=== PATIENT | female | born 1990 | race Caucasian/White ===

== ENCOUNTER 2017-03-03 18:42 | Emergency (ER) | payer OTHER ==
[~2017-03-03] VITALS: Ht 157.5 cm; Wt 72.6 kg
[~2017-03-03 18:42] MED LIST: BUPROPION HCL150 M2 PO; CEFTIN250 MG PO; CLINDAMYCIN HC300 MG PO; DAYPRO600 MG PO; FLUOXETINE HCL20 M1 PO; FLUOXETINE HCL20 MG PO; IBUPROFEN600 MG PO; IBUPROFEN800 MG PO; ISENTRESS400 MG PO; METHOCARBAMOL750 MG PO; PAROXETINE HCL20 MG PO; PRENACARE TABL1 EACH PO; TRUVADA 200 MG1 EACH PO; VICODIN 5-3001 EACH PO; ZOFRAN ODT4 MG PO
== END 2017-03-03 19:48 | disposition home or self-care (01) ==
LOC: ED 18:42
DX: S50.11XA Contusion of right forearm, initial encounter (principal); S60.221A Contusion of right hand, initial encounter; F41.9 Anxiety disorder, unspecified; F32.9 Major depressive disorder, single episode, unspecified; Z90.49 Acquired absence of other specified parts of digestive tract; Z88.0 Allergy status to penicillin; Z88.1 Allergy status to other antibiotic agents; Z88.5 Allergy status to narcotic agent; Z79.899 Other long term (current) drug therapy; W22.8XXA Striking against or struck by other objects, initial encounter
CPT/HCPCS: 73090; 73130; 99283

== ENCOUNTER 2017-05-24 18:56 | Emergency (ER) | payer OTHER ==
[~2017-05-24] VITALS: Ht 157.5 cm; Wt 90.7 kg
[2017-05-24] MEDS ORDERED: CRUTCH1 EACH (19:30)
== END 2017-05-24 19:45 | disposition home or self-care (01) ==
LOC: ED 18:56
DX: S93.402A Sprain of unspecified ligament of left ankle, initial encounter (principal); F17.200 Nicotine dependence, unspecified, uncomplicated; F41.9 Anxiety disorder, unspecified; F32.9 Major depressive disorder, single episode, unspecified; Z88.1 Allergy status to other antibiotic agents; Z79.899 Other long term (current) drug therapy; Z90.49 Acquired absence of other specified parts of digestive tract; Z98.890 Other specified postprocedural states; Z88.0 Allergy status to penicillin; Z88.5 Allergy status to narcotic agent; W10.1XXA Fall (on)(from) sidewalk curb, initial encounter
CPT/HCPCS: 73610; 99283

== ENCOUNTER 2017-07-09 18:03 | Emergency (ER) | payer OTHER ==
[~2017-07-09] VITALS: Ht 157.5 cm; Wt 90.7 kg
[~2017-07-09 18:03] MED LIST changes: +CRUTCH1 EACH
[2017-07-09] MEDS ORDERED: NAPROSYN500 MG PO (23:38)
[2017-07-09] MEDS ORDERED: PREDNISONE20 MG PO (23:38)
== END 2017-07-10 00:14 | disposition home or self-care (01) ==
LOC: ED 18:03
DX: J20.9 Acute bronchitis, unspecified (principal); J04.0 Acute laryngitis; F32.9 Major depressive disorder, single episode, unspecified; F41.9 Anxiety disorder, unspecified; F43.10 Post-traumatic stress disorder, unspecified; F17.200 Nicotine dependence, unspecified, uncomplicated; Z90.49 Acquired absence of other specified parts of digestive tract; Z88.0 Allergy status to penicillin; Z88.5 Allergy status to narcotic agent; Z79.899 Other long term (current) drug therapy
CPT/HCPCS: 36415; 71046; 85379; 87502; 94640; 99283; J7512

== ENCOUNTER 2017-07-27 16:37 | Emergency (ER) | payer OTHER ==
[~2017-07-27] VITALS: Ht 157.5 cm; Wt 90.7 kg
[~2017-07-27 16:37] MED LIST changes: +NAPROSYN500 MG PO; +PREDNISONE20 MG PO
== END 2017-07-27 17:05 | disposition home or self-care (01) ==
LOC: ED 16:37
DX: K13.79 Other lesions of oral mucosa (principal); Z98.818 Other dental procedure status

== ENCOUNTER 2017-10-08 05:36 | Emergency (ER) | payer OTHER ==
[~2017-10-08] VITALS: Ht 157.5 cm; Wt 90.7 kg
[2017-10-08] MEDS ORDERED: ZOFRAN ODT4 MG PO (09:04)
[2017-10-08] MEDS ORDERED: NORCO 5-325 TA1 EACH PO (09:04)
== END 2017-10-08 09:44 | disposition home or self-care (01) ==
LOC: ED 05:36
DX: R10.31 Right lower quadrant pain (principal); F32.9 Major depressive disorder, single episode, unspecified; F43.10 Post-traumatic stress disorder, unspecified; F41.9 Anxiety disorder, unspecified; F17.200 Nicotine dependence, unspecified, uncomplicated; Z88.0 Allergy status to penicillin; Z88.5 Allergy status to narcotic agent; Z79.899 Other long term (current) drug therapy
CPT/HCPCS: 74177; 80053; 81001; 83690; 84703; 85025; 96374; 96375; 96376; 99284; J1170; J2405; J7030; J7120; Q9967

== ENCOUNTER 2017-12-16 09:11 | Emergency (ER) | payer OTHER ==
[~2017-12-16] VITALS: Ht 157.5 cm; Wt 104.3 kg
[~2017-12-16 09:11] MED LIST changes: +NORCO 5-325 TA1 EACH PO
[2017-12-16] MEDS ORDERED: ZITHROMAX250 MG PO (10:07)
[2017-12-16] MEDS ORDERED: ONDANSETRON ODT8 MG PO (10:07)
== END 2017-12-16 09:51 | disposition home or self-care (01) ==
LOC: ED 09:11
DX: J02.9 Acute pharyngitis, unspecified (principal); R11.0 Nausea; F17.200 Nicotine dependence, unspecified, uncomplicated; Z88.0 Allergy status to penicillin; Z88.5 Allergy status to narcotic agent; Z79.899 Other long term (current) drug therapy
CPT/HCPCS: 99283

== ENCOUNTER 2018-08-01 20:56 | Emergency (ER) | payer OTHER ==
[~2018-08-01] VITALS: Ht 157.5 cm; Wt 81.7 kg
[~2018-08-01 20:56] MED LIST changes: +ONDANSETRON ODT8 MG PO; +ZITHROMAX250 MG PO
== END 2018-08-01 22:54 | disposition home or self-care (01) ==
LOC: ED 20:56
DX: T16.1XXA Foreign body in right ear, initial encounter (principal); F32.9 Major depressive disorder, single episode, unspecified; F41.9 Anxiety disorder, unspecified; F43.10 Post-traumatic stress disorder, unspecified; F17.200 Nicotine dependence, unspecified, uncomplicated; Z88.0 Allergy status to penicillin; Z88.5 Allergy status to narcotic agent; Z79.899 Other long term (current) drug therapy
CPT/HCPCS: 99282

== ENCOUNTER 2019-08-20 19:11 | Emergency (ER) | payer OTHER ==
[~2019-08-20] VITALS: Ht 157.5 cm; Wt 86.2 kg
[2019-08-20] MEDS ORDERED: PROMETHAZINE12.5 M1 PO (21:29)
== END 2019-08-20 21:43 | disposition home or self-care (01) ==
LOC: ED 19:11
DX: O21.9 Vomiting of pregnancy, unspecified (principal); Z3A.12 12 weeks gestation of pregnancy; O99.331 Smoking (tobacco) complicating pregnancy, first trimester; F17.200 Nicotine dependence, unspecified, uncomplicated; Z88.0 Allergy status to penicillin; Z88.5 Allergy status to narcotic agent
CPT/HCPCS: 80053; 81001; 83690; 84702; 85025; 96361; 96374; 96376; 99284-25; J2405; J7030

== ENCOUNTER 2019-10-13 10:59 | Emergency (ER) | payer OTHER ==
[~2019-10-13] VITALS: Ht 157.5 cm; Wt 86.2 kg
[~2019-10-13 10:59] MED LIST changes: +PROMETHAZINE12.5 M1 PO
[2019-10-13] MEDS ORDERED: SERTRALINE HCL50 MG PO (11:14)
[2019-10-13] MEDS ORDERED: METOCLOPRAMIDE H5 MG PO (11:14)
[2019-10-13] MEDS ORDERED: ONDANSETRON ODT8 MG PO (13:30)
== END 2019-10-13 14:08 | disposition home or self-care (01) ==
LOC: ED 10:59
DX: O99.611 Diseases of the digestive system complicating pregnancy, first trimester (principal); K52.9 Noninfective gastroenteritis and colitis, unspecified; O99.341 Other mental disorders complicating pregnancy, first trimester; F32.9 Major depressive disorder, single episode, unspecified; F41.9 Anxiety disorder, unspecified; O99.331 Smoking (tobacco) complicating pregnancy, first trimester; F17.200 Nicotine dependence, unspecified, uncomplicated; Z90.49 Acquired absence of other specified parts of digestive tract; Z88.0 Allergy status to penicillin; Z88.5 Allergy status to narcotic agent; Z91.09 Other allergy status, other than to drugs and biological substances; Z3A.11 11 weeks gestation of pregnancy
CPT/HCPCS: 80053; 81001; 85025; 96361; 96374; 99284-25; 99406; J2550; J7030

== ENCOUNTER 2020-04-24 07:50 | Inpatient (IN) | payer OTHER ==
[~2020-04-24] VITALS: Ht 160 cm; Wt 100.7 kg
--- OUTSIDE RECORDS SUMMARY | ~2020-04-24 | XMS | Encounter Summary ---
Demographics + + + | Address | [address] | | | [place] [address] | + + + | Home Phone | | + + + | Preferred Language | Unknown | + + + | Marital Status | Single | + + + | Advent Affiliation | Unknown | + + + | Race | White | + + + | Ethnic Group | Not or | + + + Author + + + | Author | [facility] | | | and [place] | + + + | Organization | [facility] | | | and [place] | + + + | Address | Unknown | + + + | Phone | Unavailable | + + + Support + + +---------+ + | Name | Relationship | Address | Phone | + + +---------+ + | Nahomi Willams | ECON | Unknown | | + + +---------+ + | Nahomi Willams | ECON | Unknown | | + + +---------+ + Care Team Providers + +------+ + | Care Health Physics Technician Name | Role | Phone | + +------+ + | Karson Williamson MD | PCP | | + +------+ + Encounter Details +--------+ + + + + | Date | Type | Department | Care Team | Description | +--------+ + + + + | 01/06/ | Episode | [facility] | Alexandra Abraham | | | 2017 | Changes | GASTROENTEROLOGY | TAMIKA Delacruz | | | | | [address] [facility] | | | | | | [address] [place] | | | | | | [address] | | | | | | [phone] | | | +--------+ + + + + Social History + +-------+ +--------+------+ | Tobacco Use | Types | Packs/Day | Years | Date | | | | | Used | | + +-------+ +--------+------+ | Current Every Day | | 0.25 | | | | Smoker | | | | | + +-------+ +--------+------+ + + + + + | Alcohol Use | Drinks/Week | oz/Week | Comments | + + + + + | Yes | 7-14 Cans of beer | 7.0 - 14.0 | parties on the | | | | | weekends and dinks | | | | | quite a bit | + + + + + + + + | Sex Assigned at | Date Recorded | | | | + + + | Not on file | | + + + documented as of this encounter Plan of Treatment Not on filedocumented as of this encounter Visit Diagnoses Not on filedocumented in this encounter"
--- OUTSIDE RECORDS SUMMARY | ~2020-04-24 | XMS | Encounter Summary ---
Demographics + + + | Address | [address] | | | [place] [address] | + + + | Home Phone | | + + + | Preferred Language | Unknown | + + + | Marital Status | Single | + + + | Denominational Affiliation | Unknown | + + + | Race | White | + + + | Ethnic Group | Not or | + + + Author + + + | Author | [facility] | | | and [place] | + + + | Organization | [facility] | | | and [...] Providers + +------+ + | Care Health Safety And Environment Manager Name | Role | Phone | + [...] | | | | [address] [facility] | | | | | | [address] [place] | | | | | | [address] | | | | | | [phone] | | | +--------+ + + + [...]
--- OUTSIDE RECORDS SUMMARY | ~2020-04-24 | XMS | Encounter Summary ---
Demographics + + + | Address | [address] | | | [place] [address] | + + + | Home Phone | | + + + | Preferred Language | Unknown | + + + | Marital Status | Single | + + + | Zoroastrianism Affiliation | Unknown | + + + | Race | White | + + + | Ethnic Group | Not or | + + + Author + + + | Author | [facility] | | | and [place] | + + + | Organization | [facility] | | | and [...] Team Providers + +------+ + | Care Triage Registered Nurse Name | Role | Phone | + +------+ + | Karson Williamson MD | PCP | | + +------+ + Reason for Visit + +--------+ + | Reason | Onset | Comments | | | Date | | + +--------+ + | Referral | 01/14/ | gastric emptying study | | (PreAuthorization) | 2016 | | + +--------+ + Encounter Details +--------+ + + + + | Date | Type | Department | Care Team | Description | +--------+ + + + + | 01/14/ | Telephone | [facility] | [facility], | Referral | | 2017 | | GASTROENTEROLOGY | ARIELLE Damon [address] | (PreAuthorization) | | | | [address] | [address] | (gastric emptying | | | | [address] [place], [place] | [place], [place] | study) | | | | [address] | [address] | | | | | [phone] | | | +--------+ + + + [...] + + documented as of this encounter Miscellaneous Notes Telephone Encounter - Maureen Carter CMA - 01/14/2017 2:02 PM PDTLeft message notifyi ng patient that gastric emptying study has been approved. This order has been faxed to [facility] with demographics and referral authorization. documented in this encounter Plan of Treatment Not on filedocumented as of this encounter Visit Diagnoses Not on filedocumented in this encounter"
--- OUTSIDE RECORDS SUMMARY | ~2020-04-24 | XMS | Encounter Summary ---
Demographics + + + | Address | [address] | | | [place] [address] | + + + | Home Phone | | + + + | Preferred Language | Unknown | + + + | Marital Status | Single | + + + | Sikhism Affiliation | Unknown | + + + | Race | White | + + + | Ethnic Group | Not or | + + + Author + + + | Author | [facility] | | | and [place] | + + + | Organization | [facility] | | | [...] Team Providers + +------+ + | Care Digital Solution Architect Name | Role | Phone | + +------+ + PCP | Unavailable | + +------+ + Encounter Details +--------+ + + + + | Date | Type | Department | Care Team | Description | +--------+ + + + + | 03/05/ | Hospital | [facility] | | | | 1993 | Encounter | [facility] | | | | | | CENTER [address] | | | | | | [place] | | | | | | [address] | | | | | | [phone] | | | +--------+ + + + + Social History + +-------+ +--------+------+ | Tobacco Use | Types | Packs/Day | Years | Date | | | | | Used | | + +-------+ +--------+------+ | Never Assessed | | | | | + +-------+ +--------+------+ + + + | Sex Assigned at | Date Recorded | | | | + + + | Not on file | | + + + documented as of this encounter Plan of Treatment Not on filedocumented as of this encounter Visit Diagnoses Not on filedocumented in this encounter"
--- OUTSIDE RECORDS SUMMARY | ~2020-04-24 | XMS | Encounter Summary ---
Demographics + + + | Address | [address] | | | [place] [address] | + + + | Home Phone | | + + + | Preferred Language | Unknown | + + + | Marital Status | Single | + + + | Zoroastrian Affiliation | Unknown | + + + | Race | White | + + + | Ethnic Group | Not or | + + + Author + + + | Author | [facility] | | | and [place] | + + + | Organization | [facility] | | | [...] Team Providers + +------+ + | Care Crib Attendant Name | Role | Phone | + +------+ + | Karson Williamson MD | PCP | | + +------+ + Encounter Details +--------+ + + + + | Date | Type | Department | Care Team | Description | +--------+ + + + + | 02/10/ | Episode | [facility] | Hermel[facility], | | | 2016 | Changes | GASTROENTEROLOGY | RN | | | | | [address] [place] | | | | | | [address] [place], [place] | | | | | | [address] | | | | | | [phone] | | | +--------+ + + + + Social History + + + +--------+------+ | Tobacco Use | Types | Packs/Day | Years | Date | | | | | Used | | + + + +--------+------+ | Current Every Day | Cigarettes | 0.25 | 7 | | | Smoker | | | | | + + + +--------+------+ + +---+---+---+ | Smokeless Tobacco: | | | | | Never Used | | | | + +---+---+---+ + + + + + | Alcohol [...]
--- OUTSIDE RECORDS SUMMARY | ~2020-04-24 | XMS | Encounter Summary ---
Demographics + + + | Address | [address] | | | [place] [address] | + + + | Home Phone | | + + + | Preferred Language | Unknown | + + + | Marital Status | Single | + + + | Gnosticist Affiliation | Unknown | + + + | Race | White | + + + | Ethnic Group | Not or | + + + Author + + + | Author | [facility] | | | and [place] | + + + | Organization | [facility] | | | and [...] Team Providers + +------+ + | Care Jewel Waxer Name | Role | Phone | + +------+ + | Karson Williamson MD | PCP | | + +------+ + Encounter Details +--------+ + + + + | Date | Type | Department | Care Team | Description | +--------+ + + + + | 02/18/ | Episode | [facility] | [facility], | | | 2016 | Changes | GASTROENTEROLOGY | RN | | | | | [address] [place] | | | | | | [address] [place], [place] | | | | | | [address] | | | | | | [phone] | | | +--------+ + + + [...]
--- OUTSIDE RECORDS SUMMARY | ~2020-04-24 | XMS | Encounter Summary ---
Demographics + + + | Address | [address] | | | [place] [address] | + + + | Home Phone | | + + + | Preferred Language | Unknown | + + + | Marital Status | Single | + + + | Mandaen Affiliation | Unknown | + + + | Race | White | + + + | Ethnic Group | Not or | + + + Author + + + | Author | [facility] | | | and [place] | + + + | Organization | [facility] | | | and [...] Team Providers + +------+ + | Care Squirrel Man Name | Role | Phone | + +------+ + | Karson Williamson MD | PCP | | + +------+ + Encounter Details +--------+ + + + + | Date | Type | Department | Care Team | Description | +--------+ + + + + | 12/16/ | Abstract | [facility] [place] | [facility], | | | 2017 | | GASTROENTEROLOGY | ARIELLE Damon [address] | | | | | [address] | [address] | | | | | [address] [place], [place] | [place], [place] | | | | | [address] | [address] | | | | | [phone] | | | +--------+ + + + [...] Not on filedocumented as of this encounter Procedures + +--------+ + + + | Procedure Name | Priori | Date/Time | Associated Diagnosis | Comments | | | ty | | | | + +--------+ + + + | EXTERNAL: | Routin | 09/11/2016 | | Results for this | | COLONOSCOPY | e | | | procedure are in the | | | | | | results section. | + +--------+ + + + | HC URINE | Routin | 09/11/2016 | | Results for this | | TEST | e | | | procedure are in the | | | | | | results section. | + +--------+ + + + | HELICOBACTER PYLORI | Routin | 09/11/2016 | | Results for this | | BIOPSY | e | | | procedure are in the | | | | | | results section. | + +--------+ + + + | SPECIMEN TO | Routin | 09/11/2016 | | Results for this | | PATHOLOGY | e | | | procedure are in the | | | | | | results section. | + +--------+ + + + | EXTERNAL LAB: PTT | Routin | 08/09/2016 | | Results for this | | | e | | | procedure are in the | | | | | | results section. | + +--------+ + + + | EXTERNAL LAB: BUN | Routin | 08/09/2016 | | Results for this | | | e | | | procedure are in the | | | | | | results section. | + +--------+ + + + | EXTERNAL LAB: | Routin | 08/09/2016 | | Results for this | | GLUCOSE | e | | | procedure are in the | | | | | | results section. | + +--------+ + + + | EXTERNAL LAB: ALT | Routin | 08/09/2016 | | Results for this | | | e | | | procedure are in the | | | | | | results section. | + +--------+ + + + | EXTERNAL LAB: AST | Routin | 08/09/2016 | | Results for this | | | e | | | procedure are in the | | | | | | results section. | + +--------+ + + + | EXTERNAL LAB: | Routin | 08/09/2016 | | Results for this | | ALKALINE PHOSPHATASE | e | | | procedure are in the | | | | | | results section. | + +--------+ + + + | EXTERNAL LAB: | Routin | 08/09/2016 | | Results for this | | BILIRUBIN, TOTAL | e | | | procedure are in the | | | | | | results section. | + +--------+ + + + | EXTERNAL LAB: | Routin | 08/09/2016 | | Results for this | | ALBUMIN | e | | | procedure are in the | | | | | | results section. | + +--------+ + + + | EXTERNAL LAB: | Routin | 08/09/2016 | | Results for this | | PROTEIN, TOTAL | e | | | procedure are in the | | | | | | results section. | + +--------+ + + + | EXTERNAL LAB: | Routin | 08/09/2016 | | Results for this | | CALCIUM | e | | | procedure are in the | | | | | | results section. | + +--------+ + + + | EXTERNAL LAB: CARBON | Routin | 08/09/2016 | | Results for this | | DIOXIDE | e | | | procedure are in the | | | | | | results section. | + +--------+ + + + | EXTERNAL LAB: | Routin | 08/09/2016 | | Results for this | | CHLORIDE | e | | | procedure are in the | | | | | | results section. | + +--------+ + + + | EXTERNAL LAB: | Routin | 08/09/2016 | | Results for this | | POTASSIUM | e | | | procedure are in the | | | | | | results section. | + +--------+ + + + | EXTERNAL LAB: SODIUM | Routin | 08/09/2016 | | Results for this | | | e | | | procedure are in the | | | | | | results section. | + +--------+ + + + | EXTERNAL LAB: | Routin | 08/09/2016 | | Results for this | | URINALYSIS | e | | | procedure are in the | | | | | | results section. | + +--------+ + + + | EXTERNAL LAB: CBC | Routin | 08/09/2016 | | Results for this | | | e | | | procedure are in the | | | | | | results section. | + +--------+ + + + | EXTERNAL LAB: | Routin | 08/09/2016 | | Results for this | | PROTIME INR | e | | | procedure are in the | | | | | | results section. | + +--------+ + + + | EXTERNAL LAB: EGFR | Routin | 08/09/2016 | | Results for this | | | e | | | procedure are in the | | | | | | results section. | + +--------+ + + + | EXTERNAL LAB: | Routin | 08/09/2016 | | Results for this | | CREATININE | e | | | procedure are in the | | | | | | results section. | + +--------+ + + + | HC URINE | Routin | 08/09/2016 | | Results for this | | TEST | e | | | procedure are in the | | | | | | results section. | + +--------+ + + + | URINALYSIS, REFLEX | Routin | 08/09/2016 | | Results for this | | MICROSCOPIC AND/OR | e | | | procedure are in the | | CULTURE | | | | results section. | + +--------+ + + + | CBC WITH | Routin | 08/09/2016 | | Results for this | | DIFFERENTIAL | e | | | procedure are in the | | | | | | results section. | + +--------+ + + + | COMPREHENSIVE | Routin | 08/09/2016 | | Results for this | | METABOLIC PANEL | e | | | procedure are in the | | | | | | results section. | + +--------+ + + + | EXTERNAL LAB: | Routin | 08/02/2016 | | Results for this | | URINALYSIS | e | | | procedure are in the | | | | | | results section. | + +--------+ + + + | EXTERNAL LAB: CBC | Routin | 08/02/2016 | | Results for this | | | e | | | procedure are in the | | | | | | results section. | + +--------+ + + + | URINALYSIS, REFLEX | Routin | 08/02/2016 | | Results for this | | MICROSCOPIC AND/OR | e | | | procedure are in the | | CULTURE | | | | results section. | + +--------+ + + + | CBC WITH | Routin | 08/02/2016 | | Results for this | | DIFFERENTIAL | e | | | procedure are in the | | | | | | results section. | + +--------+ + + + | HC CULTURE-URINE | Routin | 05/20/2016 | | Results for this | | | e | | | procedure are in the | | | | | | results section. | + +--------+ + + + | HIV 1 AND HIV 2 AG | Routin | 05/14/2016 | | Results for this | | AND AB CONFIRMATION, | e | | | procedure are in the | | SERUM | | | | results section. | + +--------+ + + + | EXTERNAL LAB: GLA | Routin | 05/14/2016 | | Results for this | | | e | | | procedure are in the | | | | | | results section. | + +--------+ + + + | EXTERNAL LAB: | Routin | 05/14/2016 | | Results for this | | GLUCOSE | e | | | procedure are in the | | | | | | results section. | + +--------+ + + + | EXTERNAL LAB: ALT | Routin | 05/14/2016 | | Results for this | | | e | | | procedure are in the | | | | | | results section. | + +--------+ + + + | EXTERNAL LAB: | Routin | 05/14/2016 | | Results for this | | ALBUMIN | e | | | procedure are in the | | | | | | results section. | + +--------+ + + + | EXTERNAL LAB: | Routin | 05/14/2016 | | Results for this | | PHOSPHORUS | e | | | procedure are in the | | | | | | results section. | + +--------+ + + + | EXTERNAL LAB: | Routin | 05/14/2016 | | Results for this | | CALCIUM | e | | | procedure are in the | | | | | | results section. | + +--------+ + + + | EXTERNAL LAB: CARBON | Routin | 05/14/2016 | | Results for this | | DIOXIDE | e | | | procedure are in the | | | | | | results section. | + +--------+ + + + | EXTERNAL LAB: | Routin | 05/14/2016 | | Results for this | | CHLORIDE | e | | | procedure are in the | | | | | | results section. | + +--------+ + + + | EXTERNAL LAB: | Routin | 05/14/2016 | | Results for this | | POTASSIUM | e | | | procedure are in the | | | | | | results section. | + +--------+ + + + | EXTERNAL LAB: SODIUM | Routin | 05/14/2016 | | Results for this | | | e | | | procedure are in the | | | | | | results section. | + +--------+ + + + | EXTERNAL LAB: | Routin | 05/14/2016 | | Results for this | | HEPATITIS C AB | e | | | procedure are in the | | | | | | results section. | + +--------+ + + + | EXTERNAL LAB: MORRIS | Routin | 05/14/2016 | | Results for this | | | e | | | procedure are in the | | | | | | results section. | + +--------+ + + + | EXTERNAL LAB: MORRIS | Routin | 05/14/2016 | | Results for this | | | e | | | procedure are in the | | | | | | results section. | + +--------+ + + + | EXTERNAL LAB: EGFR | Routin | 05/14/2016 | | Results for this | | | e | | | procedure are in the | | | | | | results section. | + +--------+ + + + | EXTERNAL LAB: | Routin | 05/14/2016 | | Results for this | | CREATININE | e | | | procedure are in the | | | | | | results section. | + +--------+ + + + | HC URINE | Routin | 05/14/2016 | | Results for this | | TEST | e | | | procedure are in the | | | | | | results section. | + +--------+ + + + | HEPATITIS A, B, C | Routin | 05/14/2016 | | Results for this | | PANEL, REFLEX | e | | | procedure are in the | | | | | | results section. | + +--------+ + + + | CBC WITH | Routin | 05/14/2016 | | Results for this | | DIFFERENTIAL | e | | | procedure are in the | | | | | | results section. | + +--------+ + + + | RENAL FUNCTION PANEL | Routin | 05/14/2016 | | Results for this | | | e | | | procedure are in the | | | | | | results section. | + +--------+ + + + | EXTERNAL LAB: BUN | Routin | 03/01/2016 | | Results for this | | | e | | | procedure are in the | | | | | | results section. | + +--------+ + + + | EXTERNAL LAB: | Routin | 03/01/2016 | | Results for this | | GLUCOSE | e | | | procedure are in the | | | | | | results section. | + +--------+ + + + | EXTERNAL LAB: LIPASE | Routin | 03/01/2016 | | Results for this | | | e | | | procedure are in the | | | | | | results section. | + +--------+ + + + | EXTERNAL LAB: | Routin | 03/01/2016 | | Results for this | | AMYLASE, SERUM | e | | | procedure are in the | | | | | | results section. | + +--------+ + + + | EXTERNAL LAB: ALT | Routin | 03/01/2016 | | Results for this | | | e | | | procedure are in the | | | | | | results section. | + +--------+ + + + | EXTERNAL LAB: AST | Routin | 03/01/2016 | | Results for this | | | e | | | procedure are in the | | | | | | results section. | + +--------+ + + + | EXTERNAL LAB: | Routin | 03/01/2016 | | Results for this | | ALKALINE PHOSPHATASE | e | | | procedure are in the | | | | | | results section. | + +--------+ + + + | EXTERNAL LAB: | Routin | 03/01/2016 | | Results for this | | BILIRUBIN, TOTAL | e | | | procedure are in the | | | | | | results section. | + +--------+ + + + | EXTERNAL LAB: | Routin | 03/01/2016 | | Results for this | | ALBUMIN | e | | | procedure are in the | | | | | | results section. | + +--------+ + + + | EXTERNAL LAB: | Routin | 03/01/2016 | | Results for this | | PROTEIN, TOTAL | e | | | procedure are in the | | | | | | results section. | + +--------+ + + + | EXTERNAL LAB: | Routin | 03/01/2016 | | Results for this | | CALCIUM | e | | | procedure are in the | | | | | | results section. | + +--------+ + + + | EXTERNAL LAB: CARBON | Routin | 03/01/2016 | | Results for this | | DIOXIDE | e | | | procedure are in the | | | | | | results section. | + +--------+ + + + | EXTERNAL LAB: | Routin | 03/01/2016 | | Results for this | | CHLORIDE | e | | | procedure are in the | | | | | | results section. | + +--------+ + + + | EXTERNAL LAB: | Routin | 03/01/2016 | | Results for this | | POTASSIUM | e | | | procedure are in the | | | | | | results section. | + +--------+ + + + | EXTERNAL LAB: SODIUM | Routin | 03/01/2016 | | Results for this | | | e | | | procedure are in the | | | | | | results section. | + +--------+ + + + | EXTERNAL LAB: CBC | Routin | 03/01/2016 | | Results for this | | | e | | | procedure are in the | | | | | | results section. | + +--------+ + + + | HCG, SERUM, QUAL | Routin | 03/01/2016 | | Results for this | | (NON-ORD) | e | | | procedure are in the | | | | | | results section. | + +--------+ + + + | EXTERNAL LAB: EGFR | Routin | 03/01/2016 | | Results for this | | | e | | | procedure are in the | | | | | | results section. | + +--------+ + + + | EXTERNAL LAB: | Routin | 03/01/2016 | | Results for this | | CREATININE | e | | | procedure are in the | | | | | | results section. | + +--------+ + + + | CBC WITH | Routin | 03/01/2016 | | Results for this | | DIFFERENTIAL | e | | | procedure are in the | | | | | | results section. | + +--------+ + + + | COMPREHENSIVE | Routin | 03/01/2016 | | Results for this | | METABOLIC PANEL | e | | | procedure are in the | | | | | | results section. | + +--------+ + + + | EXTERNAL LAB: BUN | Routin | 02/19/2016 | | Results for this | | | e | | | procedure are in the | | | | | | results section. | + +--------+ + + + | EXTERNAL LAB: | Routin | 02/19/2016 | | Results for this | | GLUCOSE | e | | | procedure are in the | | | | | | results section. | + +--------+ + + + | EXTERNAL LAB: | Routin | 02/19/2016 | | Results for this | | CALCIUM | e | | | procedure are in the | | | | | | results section. | + +--------+ + + + | EXTERNAL LAB: CARBON | Routin | 02/19/2016 | | Results for this | | DIOXIDE | e | | | procedure are in the | | | | | | results section. | + +--------+ + + + | EXTERNAL LAB: | Routin | 02/19/2016 | | Results for this | | CHLORIDE | e | | | procedure are in the | | | | | | results section. | + +--------+ + + + | EXTERNAL LAB: | Routin | 02/19/2016 | | Results for this | | POTASSIUM | e | | | procedure are in the | | | | | | results section. | + +--------+ + + + | EXTERNAL LAB: SODIUM | Routin | 02/19/2016 | | Results for this | | | e | | | procedure are in the | | | | | | results section. | + +--------+ + + + | EXTERNAL LAB: TSH | Routin | 02/19/2016 | | Results for this | | | e | | | procedure are in the | | | | | | results section. | + +--------+ + + + | EXTERNAL LAB: | Routin | 02/19/2016 | | Results for this | | TRIGLYCERIDES | e | | | procedure are in the | | | | | | results section. | + +--------+ + + + | EXTERNAL LAB: | Routin | 02/19/2016 | | Results for this | | CHOLESTEROL, HDL | e | | | procedure are in the | | | | | | results section. | + +--------+ + + + | EXTERNAL LAB: | Routin | 02/19/2016 | | Results for this | | CHOLESTEROL, TOTAL | e | | | procedure are in the | | | | | | results section. | + +--------+ + + + | EXTERNAL LAB: | Routin | 02/19/2016 | | Results for this | | CHOLESTEROL, LDL | e | | | procedure are in the | | | | | | results section. | + +--------+ + + + | EXTERNAL LAB: EGFR | Routin | 02/19/2016 | | Results for this | | | e | | | procedure are in the | | | | | | results section. | + +--------+ + + + | EXTERNAL LAB: | Routin | 02/19/2016 | | Results for this | | CREATININE | e | | | procedure are in the | | | | | | results section. | + +--------+ + + + | LIPID PANEL | Routin | 02/19/2016 | | Results for this | | | e | | | procedure are in the | | | | | | results section. | + +--------+ + + + | BASIC METABOLIC | Routin | 02/19/2016 | | Results for this | | PANEL | e | | | procedure are in the | | | | | | results section. | + +--------+ + + + | CHLAMYDIA | Routin | 02/15/2016 | | Results for this | | TRACHOMATIS AND | e | | | procedure are in the | | NEISSERIA | | | | results section. | | GONORRHOEAE DIAZ | | | | | | (NON-ORD) | | | | | + +--------+ + + + | VAGINAL PATHOGENS | Routin | 02/15/2016 | | Results for this | | DNA | e | | | procedure are in the | | | | | | results section. | + +--------+ + + + documented in this encounter Results URINE TEST (09/11/2016) + + + + + + | Component | Value | Ref Range | Performed | Pathologist | | | | | At | Signature | + + + + + + | HCG | Negative | | | | | Qualitative | | | | | | , Urine | | | | | + + + + + + + + | Specimen | + + | | + + EXTERNAL: COLONOSCOPY (09/11/2016) + + + + + + | Component | Value | Ref Range | Performed | Pathologist | | | | | At | Signature | + + + + + + | Colonoscopy | diagnoses: Gastritis. | | | | | | unspecified left-sided | | | | | Impression, | colitis. ~ [facility] Dr[facility] Briones | | | | | External | | | | | + + + + + + Helicobactor pylori Biopsy (09/11/2016) + + + + + + | Component | Value | Ref Range | Performed | Pathologist | | | | | At | Signature | + + + + + + | Clotest | Negative | Negative | | | | (Urease), | | | | | | Qualitative | | | | | + + + + + + + + | Specimen | + + | Tissue - Entire | | pyloric antrum (body | | structure) | + + Specimen to Pathology (09/11/2016) + + + + + + | Component | Value | Ref Range | Performed | Pathologist | | | | | At | Signature | + + + + + + | DIAGNOSIS: | A.) MUCOSA, DUODENUM, | | | | | | BIOPSY: No pathologica | | | | | | diagnosis | | | | + + + + + + | DIAGNOSIS: | B.) MUCOSA, ANTRUM, | | | | | | BIOPSY: Mild chronic | | | | | | inactive gastritis | | | | + + + + + + | DIAGNOSIS: | C.) MUCOSA, ILEUM, | | | | | | BIOPSY: No pathologic | | | | | | diagnosis | | | | + + + + + + | DIAGNOSIS: | D.) MUCOSA, RIGHT COLON, | | | | | | BIOPSY: mild focal | | | | | | intramucosal hemorrhage. | | | | | | minimal non-specific | | | | | | chronic inflammation and | | | | | | mucosal edema. | | | | + + + + + + | DIAGNOSIS: | E.) MUCOSA, TRANSVERSE | | | | | | COLON, BIOPSY: minimal | | | | | | non-specific chronic | | | | | | inflammation. | | | | + + + + + + | DIAGNOSIS: | F.) MUCOSA, 80 CM | | | | | | REGION, BIOPSY: mucosal | | | | | | edema. mild focal | | | | | | mucosal hemmorrhage. | | | | | | minimal to mild | | | | | | non-specific chronic | | | | | | inflammation. | | | | + + + + + + | DIAGNOSIS: | G.) MUCOSA, 45 CM | | | | | | REGION, BIOPSY: mucosal | | | | | | edema. mild focal | | | | | | mucosal hemorrhage. | | | | | | minimal to mild | | | | | | non-specific chronic | | | | | | inflammation. | | | | + + + + + + | DIAGNOSIS: | H.) MUCOSA, 20 CM | | | | | | REGION, BIOPSY: mucosal | | | | | | edema. mild focal | | | | | | mucosal hemmorrhage. | | | | | | minimal to mild | | | | | | non-specific chronic | | | | | | inflammation. | | | | + + + + + + | DIAGNOSIS: | I.) MUCOSA, RECTUM, | | | | | | BIOPSY: mucosa edema. | | | | | | mild focal mucosal | | | | | | hemorrhage. minimal to | | | | | | mild non-specific | | | | | | chronic inflammation. | | | | + + + + + + + + | Specimen | + + | Tissue | + + HC URINE TEST (08/09/2016) + + + + + + | Component | Value | Ref Range | Performed | Pathologist | | | | | At | Signature | + + + + + + | HCG | Negative | | | | | Qualitative | | | | | | , Urine | | | | | + + + + + + + + | Specimen | + + | | + + Comprehensive Metabolic Panel (08/09/2016) + +-------+ + + + | Component | Value | Ref Range | Performed | Pathologist | | | | | At | Signature | + +-------+ + + + | Anion Gap | 15 | 7 - 21 mmol/L | | | + +-------+ + + + | BUN/Creatin | 25.4 | 6 - 28.6 | | | | ine Ratio | | | | | + +-------+ + + + | Globulin | 3 | 1.8 - 3.5 | | | + +-------+ + + + | Albumin/Tiffanie | 1.4 | 1.1 - 2.4 | | | | bulin Ratio | | | | | + +-------+ + + + + + | Specimen | + + | Blood | + + CBC with Differential (08/09/2016) + +-------+ + + + | Component | Value | Ref Range | Performed | Pathologist | | | | | At | Signature | + +-------+ + + + | MCH | 26.0 | 26.0 - 33.0 pg | | | + +-------+ + + + | MCHC | 33.0 | 30.0 - 36.0 % | | | + +-------+ + + + | Basophils % | 0.2 | 0 - 2 | | | + +-------+ + + + + + | Specimen | + + | Blood | + + External Lab: PTT (08/09/2016) + +-------+ + + + | Component | Value | Ref Range | Performed | Pathologist | | | | | At | Signature | + +-------+ + + + | PTT, | 29.1 | 22.9 - 41.3 | EXTERNAL | | | External | | | LAB | | + +-------+ + + + + +---------+ + + | Performing | Address | City/State/Zipcode | Phone Number | | Organization | | | | + +---------+ + + | EXTERNAL LAB | | | | + +---------+ + + External Lab: BUN (08/09/2016) + +-------+ + + + | Component | Value | Ref Range | Performed | Pathologist | | | | | At | Signature | + +-------+ + + + | BUN, | 16 | 6 - 23 | EXTERNAL | | | External | | | LAB | | + +-------+ + + + + +---------+ + + | Performing | Address | City/State/Zipcode | Phone Number | | Organization | | | | + +---------+ + + | EXTERNAL LAB | | | | + +---------+ + + External Lab: Glucose (08/09/2016) + +-------+ + + + | Component | Value | Ref Range | Performed | Pathologist | | | | | At | Signature | + +-------+ + + + | Glucose, | 89 | 70 - 100 | EXTERNAL | | | External | | | LAB | | + +-------+ + + + + +---------+ + + | Performing | Address | City/State/Zipcode | Phone Number | | Organization | | | | + +---------+ + + | EXTERNAL LAB | | | | + +---------+ + + External Lab: ALT (08/09/2016) + +-------+ + + + | Component | Value | Ref Range | Performed | Pathologist | | | | | At | Signature | + +-------+ + + + | ALT, | 36 | 7 - 52 | EXTERNAL | | | External | | | LAB | | + +-------+ + + + + +---------+ + + | Performing | Address | City/State/Zipcode | Phone Number | | Organization | | | | + +---------+ + + | EXTERNAL LAB | | | | + +---------+ + + External Lab: AST (08/09/2016) + +-------+ + + + | Component | Value | Ref Range | Performed | Pathologist | | | | | At | Signature | + +-------+ + + + | AST, | 24 | 13 - 39 | EXTERNAL | | | External | | | LAB | | + +-------+ + + + + +---------+ + + | Performing | Address | City/State/Zipcode | Phone Number | | Organization | | | | + +---------+ + + | EXTERNAL LAB | | | | + +---------+ + + External Lab: Alkaline Phosphatase (08/09/2016) + +-------+ + + + | Component | Value | Ref Range | Performed | Pathologist | | | | | At | Signature | + +-------+ + + + | ALP, | 39 | 31 - 130 | EXTERNAL | | | External | | | LAB | | + +-------+ + + + + +---------+ + + | Performing | Address | City/State/Zipcode | Phone Number | | Organization | | | | + +---------+ + + | EXTERNAL LAB | | | | + +---------+ + + External Lab: Bilirubin, Total (08/09/2016) + +-------+ + + + | Component | Value | Ref Range | Performed | Pathologist | | | | | At | Signature | + +-------+ + + + | Bilirubin, | 0.5 | 0 - 1.2 | EXTERNAL | | | Total, | | | LAB | | | External | | | | | + +-------+ + + + + +---------+ + + | Performing | Address | City/State/Zipcode | Phone Number | | Organization | | | | + +---------+ + + | EXTERNAL LAB | | | | + +---------+ + + External Lab: Albumin (08/09/2016) + +-------+ + + + | Component | Value | Ref Range | Performed | Pathologist | | | | | At | Signature | + +-------+ + + + | Albumin, | 4.3 | 3.5 - 5 | EXTERNAL | | | External | | | LAB | | + +-------+ + + + + +---------+ + + | Performing | Address | City/State/Zipcode | Phone Number | | Organization | | | | + +---------+ + + | EXTERNAL LAB | | | | + +---------+ + + External Lab: Protein, Total (08/09/2016) + +-------+ + + + | Component | Value | Ref Range | Performed | Pathologist | | | | | At | Signature | + +-------+ + + + | Protein, | 7.3 | 6 - 8 | EXTERNAL | | | Total, | | | LAB | | | External | | | | | + +-------+ + + + + +---------+ + + | Performing | Address | City/State/Zipcode | Phone Number | | Organization | | | | + +---------+ + + | EXTERNAL LAB | | | | + +---------+ + + External Lab: Calcium (08/09/2016) + +-------+ + + + | Component | Value | Ref Range | Performed | Pathologist | | | | | At | Signature | + +-------+ + + + | Calcium, | 9.1 | 8.4 - 10.2 | EXTERNAL | | | External | | | LAB | | + +-------+ + + + + +---------+ + + | Performing | Address | City/State/Zipcode | Phone Number | | Organization | | | | + +---------+ + + | EXTERNAL LAB | | | | + +---------+ + + External Lab: Carbon Dioxide (08/09/2016) + +-------+ + + + | Component | Value | Ref Range | Performed | Pathologist | | | | | At | Signature | + +-------+ + + + | Carbon | 26 | 19 - 31 | EXTERNAL | | | Dioxide, | | | LAB | | | External | | | | | + +-------+ + + + + +---------+ + + | Performing | Address | City/State/Zipcode | Phone Number | | Organization | | | | + +---------+ + + | EXTERNAL LAB | | | | + +---------+ + + External Lab: Chloride (08/09/2016) + +-------+ + + + | Component | Value | Ref Range | Performed | Pathologist | | | | | At | Signature | + +-------+ + + + | Chloride, | 106 | 95 - 112 | EXTERNAL | | | External | | | LAB | | + +-------+ + + + + +---------+ + + | Performing | Address | City/State/Zipcode | Phone Number | | Organization | | | | + +---------+ + + | EXTERNAL LAB | | | | + +---------+ + + External Lab: Potassium (08/09/2016) + +---------+ + + + | Component | Value | Ref Range | Performed | Pathologist | | | | | At | Signature | + +---------+ + + + | Potassium, | 3.3 (A) | 3.6 - 5.1 | EXTERNAL | | | External | | | LAB | | + +---------+ + + + + +---------+ + + | Performing | Address | City/State/Zipcode | Phone Number | | Organization | | | | + +---------+ + + | EXTERNAL LAB | | | | + +---------+ + + External Lab: Sodium (08/09/2016) + +---------+ + + + | Component | Value | Ref Range | Performed | Pathologist | | | | | At | Signature | + +---------+ + + + | Sodium, | 144 (A) | 132 - 143 | EXTERNAL | | | External | | | LAB | | + +---------+ + + + + +---------+ + + | Performing | Address | City/State/Zipcode | Phone Number | | Organization | | | | + +---------+ + + | EXTERNAL LAB | | | | + +---------+ + + External Lab: CBC (08/09/2016) + + + + + + | Component | Value | Ref Range | Performed | Pathologist | | | | | At | Signature | + + + + + + | WBC, | 5.7 | 4.5 - 11 | EXTERNAL | | | External | | | LAB | | + + + + + + | HGB, | 13.7 | 12 - 16 | EXTERNAL | | | External | | | LAB | | + + + + + + | HCT, | 42.1 | 35 - 45 | EXTERNAL | | | External | | | LAB | | + + + + + + | PLT, | 247 | 140 - 440 | EXTERNAL | | | External | | | LAB | | + + + + + + | Neutrophils | 45.3 | 39 - 80 | EXTERNAL | | | %, | | | LAB | | | External | | | | | + + + + + + | Lymphocytes | 43.7 | 24 - 44 | EXTERNAL | | | %, | | | LAB | | | External | | | | | + + + + + + | Monocytes | 7.5 | 0 - 12 | EXTERNAL | | | %, External | | | LAB | | + + + + + + | Eosinophils | 3.3 | 0 - 6 | EXTERNAL | | | %, | | | LAB | | | External | | | | | + + + + + + | RBC, | 5.17 (A) | 3.8 - 5.1 | EXTERNAL | | | External | | | LAB | | + + + + + + | MCV, | 82 | 81 - 99 | EXTERNAL | | | External | | | LAB | | + + + + + + | RDW, | 12.1 | 10.5 - 15 | EXTERNAL | | | External | | | LAB | | + + + + + + + +---------+ + + | Performing | Address | City/State/Zipcode | Phone Number | | Organization | | | | + +---------+ + + | EXTERNAL LAB | | | | + +---------+ + + External Lab: Percyime INR (08/09/2016) + +--------+ + + + | Component | Value | Ref Range | Performed | Pathologist | | | | | At | Signature | + +--------+ + + + | INR, | 0.9 | | EXTERNAL | | | External | | | LAB | | + +--------+ + + + | PT, | 12 (A) | 12.1 - 15.3 | EXTERNAL | | | External | | | LAB | | + +--------+ + + + + + | Specimen | + + | Blood | + + + +---------+ + + | Performing | Address | City/State/Zipcode | Phone Number | | Organization | | | | + +---------+ + + | EXTERNAL LAB | | | | + +---------+ + + External Lab: eGFR (08/09/2016) + +-------+ + + + | Component | Value | Ref Range | Performed | Pathologist | | | | | At | Signature | + +-------+ + + + | eGFR, | >60 | 60 - 99,999 | EXTERNAL | | | External | | | LAB | | + +-------+ + + + + + | Specimen | + + | Blood | + + + +---------+ + + | Performing | Address | City/State/Zipcode | Phone Number | | Organization | | | | + +---------+ + + | EXTERNAL LAB | | | | + +---------+ + + External Lab: Creatinine (08/09/2016) + +-------+ + + + | Component | Value | Ref Range | Performed | Pathologist | | | | | At | Signature | + +-------+ + + + | Creatinine, | 0.63 | 0.6 - 1.35 | EXTERNAL | | | External | | | LAB | | + +-------+ + + + + + | Specimen | + + | Blood | + + + +---------+ + + | Performing | Address | City/State/Zipcode | Phone Number | | Organization | | | | + +---------+ + + | EXTERNAL LAB | | | | + +---------+ + + Urinalysis, Reflex Microscopic and/or Culture (08/09/2016) + + + + + + | Component | Value | Ref Range | Performed | Pathologist | | | | | At | Signature | + + + + + + | COLLECTION | Clean Catch | | | | | METHOD 1 | | | | | + + + + + + | Color | Yellow | | | | + + + + + + | Clarity, | Clear | | | | | Urine | | | | | + + + + + + | Bilirubin, | Negative | Negative | | | | Urine | | | | | + + + + + + | Nitrite, | Negative | Negative | | | | Urine | | | | | + + + + + + | Urobilinoge | 4 mg/dL (A) | < 0.2 mg/dL, | | | | n, Urine | | 1.0 mg/dL, 4.0 | | | | | | mg/dL, Normal, | | | | | | 1.0 E.U./dL, | | | | | | 0.2 E.U./dL, | | | | | | 0.2 mg/dL, | | | | | | Negative, 1 | | | | | | mg/dL, <2.0 | | | | | | mg/dL | | | + + + + + + | CASTS | Negative | | | | + + + + + + | WBC, UA | 0 | 0 - 4 | | | + + + + + + | Squamous | 2+ | | | | | epithelial, | | | | | | UA, POC | | | | | + + + + + + | CRYSTAL UA | Negative | | | | + + + + + + | Bacteria, | Trace (A) | Negative /HPF | | | | Urine | | | | | + + + + + + + + | Specimen | + + | Urine | + + External Lab: Urinalysis (08/09/2016) + + + + + + | Component | Value | Ref Range | Performed | Pathologist | | | | | At | Signature | + + + + + + | UA Blood, | Negative | | EXTERNAL | | | External | | | LAB | | + + + + + + | UA Glucose, | Normal | | EXTERNAL | | | External | | | LAB | | + + + + + + | UA Ketones, | Negative | | EXTERNAL | | | External | | | LAB | | + + + + + + | UA Ph, | 6 | 5 - 9 | EXTERNAL | | | External | | | LAB | | + + + + + + | UA | Negative | | EXTERNAL | | | Proteins, | | | LAB | | | External | | | | | + + + + + + | UA RBC, | 2 | 0 - 4 | EXTERNAL | | | External | | | LAB | | + + + + + + | UA Specific | 1.029 | 1.005 - 1.03 | EXTERNAL | | | [place], | | | LAB | | | External | | | | | + + + + + + | UA | Negative | | EXTERNAL | | | Leukocyte | | | LAB | | | Esterase, | | | | | | External | | | | | + + + + + + + +---------+ + + | Performing | Address | City/State/Zipcode | Phone Number | | Organization | | | | + +---------+ + + | EXTERNAL LAB | | | | + +---------+ + + Urinalysis, Reflex Microscopic and/or Culture (08/02/2016) + + + + + + | Component | Value | Ref Range | Performed | Pathologist | | | | | At | Signature | + + + + + + | COLLECTION | Clean Catch | | | | | METHOD 1 | | | | | + + + + + + | Color | Yellow | | | | + + + + + + | Clarity, | Clear | | | | | Urine | | | | | + + + + + + | Bilirubin, | Negative | Negative | | | | Urine | | | | | + + + + + + | Nitrite, | Negative | Negative | | | | Urine | | | | | + + + + + + | Urobilinoge | Normal | < 0.2 mg/dL, | | | | n, Urine | | 1.0 mg/dL, 4.0 | | | | | | mg/dL, Normal, | | | | | | 1.0 E.U./dL, | | | | | | 0.2 E.U./dL, | | | | | | 0.2 mg/dL, | | | | | | Negative, 1 | | | | | | mg/dL, <2.0 | | | | | | mg/dL | | | + + + + + + | WBC, UA | 2 | 0 - 4 | | | + + + + + + | Squamous | negative | | | | | epithelial, | | | | | | UA, POC | | | | | + + + + + + | CRYSTAL UA | Negative | | | | + + + + + + | Bacteria, | Trace (A) | Negative /HPF | | | | Urine | | | | | + + + + + + + + | Specimen | + + | Urine | + + External Lab: Urinalysis (08/02/2016) + + + + + + | Component | Value | Ref Range | Performed | Pathologist | | | | | At | Signature | + + + + + + | UA Blood, | Negative | | EXTERNAL | | | External | | | LAB | | + + + + + + | UA Glucose, | Normal | | EXTERNAL | | | External | | | LAB | | + + + + + + | UA Ketones, | Negative | | EXTERNAL | | | External | | | LAB | | + + + + + + | UA Ph, | 5 | 5 - 9 | EXTERNAL | | | External | | | LAB | | + + + + + + | UA | Negative | | EXTERNAL | | | Proteins, | | | LAB | | | External | | | | | + + + + + + | UA RBC, | 0 | 0 - 4 | EXTERNAL | | | External | | | LAB | | + + + + + + | UA Specific | 1.023 | 1.005 - 1.03 | EXTERNAL | | | [place], | | | LAB | | | External | | | | | + + + + + + | UA | Negative | | EXTERNAL | | | Leukocyte | | | LAB | | | Esterase, | | | | | | External | | | | | + + + + + + + +---------+ + + | Performing | Address | City/State/Zipcode | Phone Number | | Organization | | | | + +---------+ + + | EXTERNAL LAB | | | | + +---------+ + + CBC with Differential (08/02/2016) + +-------+ + + + | Component | Value | Ref Range | Performed | Pathologist | | | | | At | Signature | + +-------+ + + + | MCH | 26.0 | 26.0 - 33.0 pg | | | + +-------+ + + + | MCHC | 32.0 | 30.0 - 36.0 % | | | + +-------+ + + + | Basophils % | 0.2 | 0 - 2 | | | + +-------+ + + + + + | Specimen | + + | Blood | + + External Lab: CBC (08/02/2016) + + + + + + | Component | Value | Ref Range | Performed | Pathologist | | | | | At | Signature | + + + + + + | WBC, | 6.7 | 4.5 - 11 | EXTERNAL | | | External | | | LAB | | + + + + + + | HGB, | 14.5 | 12 - 16 | EXTERNAL | | | External | | | LAB | | + + + + + + | HCT, | 44.8 | 35 - 45 | EXTERNAL | | | External | | | LAB | | + + + + + + | PLT, | 238 | 140 - 440 | EXTERNAL | | | External | | | LAB | | + + + + + + | Neutrophils | 53.6 | 39 - 80 | EXTERNAL | | | %, | | | LAB | | | External | | | | | + + + + + + | Lymphocytes | 39.3 | 24 - 44 | EXTERNAL | | | %, | | | LAB | | | External | | | | | + + + + + + | Monocytes | 4.2 | 0 - 12 | EXTERNAL | | | %, External | | | LAB | | + + + + + + | Eosinophils | 2.7 | 0 - 6 | EXTERNAL | | | %, | | | LAB | | | External | | | | | + + + + + + | RBC, | 5.48 (A) | 3.8 - 5.1 | EXTERNAL | | | External | | | LAB | | + + + + + + | MCV, | 82 | 81 - 99 | EXTERNAL | | | External | | | LAB | | + + + + + + | RDW, | 12.3 | 10.5 - 15 | EXTERNAL | | | External | | | LAB | | + + + + + + + +---------+ + + | Performing | Address | City/State/Zipcode | Phone Number | | Organization | | | | + +---------+ + + | EXTERNAL LAB | | | | + +---------+ + + HC CULTURE-URINE (05/20/2016) + + + + + + | Component | Value | Ref Range | Performed | Pathologist | | | | | At | Signature | + + + + + + | Result | 05-21-16 no growth after | | | | | | overnight incubation. | | | | + + + + + + | Result | 05-22-16 50,000 cfu/mL | | | | | | mixed growth. Bacteria | | | | | | isolated probably | | | | | | represent contaminating | | | | | | jose. | | | | + + + + + + + + | Specimen | + + | | + + HC URINE TEST (05/14/2016) + + + + + + | Component | Value | Ref Range | Performed | Pathologist | | | | | At | Signature | + + + + + + | HCG | Negative | | | | | Qualitative | | | | | | , Urine | | | | | + + + + + + + + | Specimen | + + | | + + Hepatitis A, B, C [place] (05/14/2016) + + + + + + | Component | Value | Ref Range | Performed | Pathologist | | | | | At | Signature | + + + + + + | HEP B E AB | Negative | | | | + + + + + + | HEP B E AG | Negative | | | | + + + + + + + + | Specimen | + + | Blood | + + CBC with Differential (05/14/2016) + +-------+ + + + | Component | Value | Ref Range | Performed | Pathologist | | | | | At | Signature | + +-------+ + + + | MCH | 28.0 | 26.0 - 33.0 pg | | | + +-------+ + + + | MCHC | 33.0 | 30.0 - 36.0 % | | | + +-------+ + + + | Basophils % | 0 | 0 - 2 | | | + +-------+ + + + + + | Specimen | + + | Blood | + + HIV 1 and HIV 2 AG and AB Confirmation (05/14/2016) + + + + + + | Component | Value | Ref Range | Performed | Pathologist | | | | | At | Signature | + + + + + + | HIV 1/2 | non-reactive | | | | | Ag/Ab | | | | | + + + + + + + + | Specimen | + + | Blood | + + Renal Function Panel (05/14/2016) + +-------+ + + + | Component | Value | Ref Range | Performed | Pathologist | | | | | At | Signature | + +-------+ + + + | Anion Gap | 13 | 7 - 21 mmol/L | | | + +-------+ + + + | BUN/Creatin | 18.2 | 6 - 28.6 | | | | ine Ratio | | | | | + +-------+ + + + + + | Specimen | + + | Blood | + + External Lab: CBC (05/14/2016) + +-------+ + + + | Component | Value | Ref Range | Performed | Pathologist | | | | | At | Signature | + +-------+ + + + | Neutrophils | 48 | 39 - 80 | EXTERNAL | | | %, | | | LAB | | | External | | | | | + +-------+ + + + | Lymphocytes | 42 | 24 - 44 | EXTERNAL | | | %, | | | LAB | | | External | | | | | + +-------+ + + + | Monocytes | 6 | 0 - 12 | EXTERNAL | | | %, External | | | LAB | | + +-------+ + + + | Eosinophils | 2 | 0 - 6 | EXTERNAL | | | %, | | | LAB | | | External | | | | | + +-------+ + + + + +---------+ + + | Performing | Address | City/State/Zipcode | Phone Number | | Organization | | | | + +---------+ + + | EXTERNAL LAB | | | | + +---------+ + + External Lab: BUN (05/14/2016) + +-------+ + + + | Component | Value | Ref Range | Performed | Pathologist | | | | | At | Signature | + +-------+ + + + | BUN, | 12 | 6 - 23 | EXTERNAL | | | External | | | LAB | | + +-------+ + + + + +---------+ + + | Performing | Address | City/State/Zipcode | Phone Number | | Organization | | | | + +---------+ + + | EXTERNAL LAB | | | | + +---------+ + + External Lab: Glucose (05/14/2016) + +-------+ + + + | Component | Value | Ref Range | Performed | Pathologist | | | | | At | Signature | + +-------+ + + + | Glucose, | 82 | 70 - 100 | EXTERNAL | | | External | | | LAB | | + +-------+ + + + + +---------+ + + | Performing | Address | City/State/Zipcode | Phone Number | | Organization | | | | + +---------+ + + | EXTERNAL LAB | | | | + +---------+ + + External Lab: ALT (05/14/2016) + +-------+ + + + | Component | Value | Ref Range | Performed | Pathologist | | | | | At | Signature | + +-------+ + + + | ALT, | 30 | 7 - 52 | EXTERNAL | | | External | | | LAB | | + +-------+ + + + + +---------+ + + | Performing | Address | City/State/Zipcode | Phone Number | | Organization | | | | + +---------+ + + | EXTERNAL LAB | | | | + +---------+ + + External Lab: Albumin (05/14/2016) + +-------+ + + + | Component | Value | Ref Range | Performed | Pathologist | | | | | At | Signature | + +-------+ + + + | Albumin, | 4.7 | 3.5 - 5 | EXTERNAL | | | External | | | LAB | | + +-------+ + + + + +---------+ + + | Performing | Address | City/State/Zipcode | Phone Number | | Organization | | | | + +---------+ + + | EXTERNAL LAB | | | | + +---------+ + + External Lab: Phosphorus (05/14/2016) + +-------+ + + + | Component | Value | Ref Range | Performed | Pathologist | | | | | At | Signature | + +-------+ + + + | Phosphorus, | 3.8 | 2.5 - 5 | EXTERNAL | | | External | | | LAB | | + +-------+ + + + + +---------+ + + | Performing | Address | City/State/Zipcode | Phone Number | | Organization | | | | + +---------+ + + | EXTERNAL LAB | | | | + +---------+ + + External Lab: Calcium (05/14/2016) + +-------+ + + + | Component | Value | Ref Range | Performed | Pathologist | | | | | At | Signature | + +-------+ + + + | Calcium, | 9.5 | 8.4 - 10.2 | EXTERNAL | | | External | | | LAB | | + +-------+ + + + + +---------+ + + | Performing | Address | City/State/Zipcode | Phone Number | | Organization | | | | + +---------+ + + | EXTERNAL LAB | | | | + +---------+ + + External Lab: Carbon Dioxide (05/14/2016) + +-------+ + + + | Component | Value | Ref Range | Performed | Pathologist | | | | | At | Signature | + +-------+ + + + | Carbon | 25 | 19 - 31 | EXTERNAL | | | Dioxide, | | | LAB | | | External | | | | | + +-------+ + + + + +---------+ + + | Performing | Address | City/State/Zipcode | Phone Number | | Organization | | | | + +---------+ + + | EXTERNAL LAB | | | | + +---------+ + + External Lab: Chloride (05/14/2016) + +-------+ + + + | Component | Value | Ref Range | Performed | Pathologist | | | | | At | Signature | + +-------+ + + + | Chloride, | 104 | 95 - 112 | EXTERNAL | | | External | | | LAB | | + +-------+ + + + + +---------+ + + | Performing | Address | City/State/Zipcode | Phone Number | | Organization | | | | + +---------+ + + | EXTERNAL LAB | | | | + +---------+ + + External Lab: Potassium (05/14/2016) + +-------+ + + + | Component | Value | Ref Range | Performed | Pathologist | | | | | At | Signature | + +-------+ + + + | Potassium, | 3.6 | 3.6 - 5.1 | EXTERNAL | | | External | | | LAB | | + +-------+ + + + + +---------+ + + | Performing | Address | City/State/Zipcode | Phone Number | | Organization | | | | + +---------+ + + | EXTERNAL LAB | | | | + +---------+ + + External Lab: Sodium (05/14/2016) + +-------+ + + + | Component | Value | Ref Range | Performed | Pathologist | | | | | At | Signature | + +-------+ + + + | Sodium, | 138 | 132 - 143 | EXTERNAL | | | External | | | LAB | | + +-------+ + + + + +---------+ + + | Performing | Address | City/State/Zipcode | Phone Number | | Organization | | | | + +---------+ + + | EXTERNAL LAB | | | | + +---------+ + + External Lab: Hepatitis C Ab (05/14/2016) + + + + + + | Component | Value | Ref Range | Performed | Pathologist | | | | | At | Signature | + + + + + + | HCV, | Non-Reactive | Non-Reactive | EXTERNAL | | | External | | | LAB | | + + + + + + + +---------+ + + | Performing | Address | City/State/Zipcode | Phone Number | | Organization | | | | + +---------+ + + | EXTERNAL LAB | | | | + +---------+ + + External Lab: CBC (05/14/2016) + +---------+ + + + | Component | Value | Ref Range | Performed | Pathologist | | | | | At | Signature | + +---------+ + + + | WBC, | 7.5 | 4.5 - 11 | EXTERNAL | | | External | | | LAB | | + +---------+ + + + | HGB, | 14.4 | 12 - 16 | EXTERNAL | | | External | | | LAB | | + +---------+ + + + | HCT, | 43.5 | 35 - 45 | EXTERNAL | | | External | | | LAB | | + +---------+ + + + | PLT, | 267 | 140 - 440 | EXTERNAL | | | External | | | LAB | | + +---------+ + + + | RBC, | 5.2 (A) | 3.8 - 5.1 | EXTERNAL | | | External | | | LAB | | + +---------+ + + + | MCV, | 82 | 81 - 99 | EXTERNAL | | | External | | | LAB | | + +---------+ + + + | RDW, | 12.4 | 10.5 - 15 | EXTERNAL | | | External | | | LAB | | + +---------+ + + + + +---------+ + + | Performing | Address | City/State/Zipcode | Phone Number | | Organization | | | | + +---------+ + + | EXTERNAL LAB | | | | + +---------+ + + External Lab: eGFR (05/14/2016) + +-------+ + + + | Component | Value | Ref Range | Performed | Pathologist | | | | | At | Signature | + +-------+ + + + | eGFR, | >60 | 60 - 999,999 | EXTERNAL | | | External | | | LAB | | + +-------+ + + + + + | Specimen | + + | Blood | + + + +---------+ + + | Performing | Address | City/State/Zipcode | Phone Number | | Organization | | | | + +---------+ + + | EXTERNAL LAB | | | | + +---------+ + + External Lab: Creatinine (05/14/2016) + +-------+ + + + | Component | Value | Ref Range | Performed | Pathologist | | | | | At | Signature | + +-------+ + + + | Creatinine, | 0.66 | 0.6 - 1.35 | EXTERNAL | | | External | | | LAB | | + +-------+ + + + + + | Specimen | + + | Blood | + + + +---------+ + + | Performing | Address | City/State/Zipcode | Phone Number | | Organization | | | | + +---------+ + + | EXTERNAL LAB | | | | + +---------+ + + CBC with Differential (03/01/2016) + +-------+ + + + | Component | Value | Ref Range | Performed | Pathologist | | | | | At | Signature | + +-------+ + + + | MCH | 27.0 | 26.0 - 33.0 pg | | | + +-------+ + + + | MCHC | 33.0 | 30.0 - 36.0 % | | | + +-------+ + + + | Basophils % | 1.2 | 0 - 2 | | | + +-------+ + + + + + | Specimen | + + | Blood | + + Hcg, Serum, Qual (03/01/2016) + + + + + + | Component | Value | Ref Range | Performed | Pathologist | | | | | At | Signature | + + + + + + | HCG | negative | | | | + + + + + + + + | Specimen | + + | Blood | + + Comprehensive Metabolic Panel (03/01/2016) + +-------+ + + + | Component | Value | Ref Range | Performed | Pathologist | | | | | At | Signature | + +-------+ + + + | Anion Gap | 14 | 7 - 21 mmol/L | | | + +-------+ + + + | BUN/Creatin | 16.7 | 6 - 28.6 | | | | ine Ratio | | | | | + +-------+ + + + | Globulin | 2.9 | 1.8 - 3.5 | | | + +-------+ + + + | Albumin/Tiffanie | 1.6 | 1.1 - 2.4 | | | | bulin Ratio | | | | | + +-------+ + + + + + | Specimen | + + | Blood | + + External Lab: BUN (03/01/2016) + +-------+ + + + | Component | Value | Ref Range | Performed | Pathologist | | | | | At | Signature | + +-------+ + + + | BUN, | 11 | 6 - 23 | EXTERNAL | | | External | | | LAB | | + +-------+ + + + + +---------+ + + | Performing | Address | City/State/Zipcode | Phone Number | | Organization | | | | + +---------+ + + | EXTERNAL LAB | | | | + +---------+ + + External Lab: Glucose (03/01/2016) + +-------+ + + + | Component | Value | Ref Range | Performed | Pathologist | | | | | At | Signature | + +-------+ + + + | Glucose, | 97 | 70 - 100 | EXTERNAL | | | External | | | LAB | | + +-------+ + + + + +---------+ + + | Performing | Address | City/State/Zipcode | Phone Number | | Organization | | | | + +---------+ + + | EXTERNAL LAB | | | | + +---------+ + + External Lab: Lipase (03/01/2016) + +-------+ + + + | Component | Value | Ref Range | Performed | Pathologist | | | | | At | Signature | + +-------+ + + + | Lipase, | 19 | 11 - 82 | EXTERNAL | | | External | | | LAB | | + +-------+ + + + + +---------+ + + | Performing | Address | City/State/Zipcode | Phone Number | | Organization | | | | + +---------+ + + | EXTERNAL LAB | | | | + +---------+ + + External Lab: Amylase, Serum (03/01/2016) + +-------+ + + + | Component | Value | Ref Range | Performed | Pathologist | | | | | At | Signature | + +-------+ + + + | Amylase, | 39 | 29 - 103 | EXTERNAL | | | Serum, | | | LAB | | | External | | | | | + +-------+ + + + + +---------+ + + | Performing | Address | City/State/Zipcode | Phone Number | | Organization | | | | + +---------+ + + | EXTERNAL LAB | | | | + +---------+ + + External Lab: ALT (03/01/2016) + +-------+ + + + | Component | Value | Ref Range | Performed | Pathologist | | | | | At | Signature | + +-------+ + + + | ALT, | 23 | 7 - 52 | EXTERNAL | | | External | | | LAB | | + +-------+ + + + + +---------+ + + | Performing | Address | City/State/Zipcode | Phone Number | | Organization | | | | + +---------+ + + | EXTERNAL LAB | | | | + +---------+ + + External Lab: HILDA (03/01/2016) + +-------+ + + + | Component | Value | Ref Range | Performed | Pathologist | | | | | At | Signature | + +-------+ + + + | AST, | 19 | 13 - 39 | EXTERNAL | | | External | | | LAB | | + +-------+ + + + + +---------+ + + | Performing | Address | City/State/Zipcode | Phone Number | | Organization | | | | + +---------+ + + | EXTERNAL LAB | | | | + +---------+ + + External Lab: Alkaline Phosphatase (03/01/2016) + +-------+ + + + | Component | Value | Ref Range | Performed | Pathologist | | | | | At | Signature | + +-------+ + + + | ALP, | 41 | 30 - 128 | EXTERNAL | | | External | | | LAB | | + +-------+ + + + + +---------+ + + | Performing | Address | City/State/Zipcode | Phone Number | | Organization | | | | + +---------+ + + | EXTERNAL LAB | | | | + +---------+ + + External Lab: Bilirubin, Total (03/01/2016) + +-------+ + + + | Component | Value | Ref Range | Performed | Pathologist | | | | | At | Signature | + +-------+ + + + | Bilirubin, | 0.9 | 0 - 1.2 | EXTERNAL | | | Total, | | | LAB | | | External | | | | | + +-------+ + + + + +---------+ + + | Performing | Address | City/State/Zipcode | Phone Number | | Organization | | | | + +---------+ + + | EXTERNAL LAB | | | | + +---------+ + + External Lab: Albumin (03/01/2016) + +-------+ + + + | Component | Value | Ref Range | Performed | Pathologist | | | | | At | Signature | + +-------+ + + + | Albumin, | 4.7 | 3.5 - 5 | EXTERNAL | | | External | | | LAB | | + +-------+ + + + + +---------+ + + | Performing | Address | City/State/Zipcode | Phone Number | | Organization | | | | + +---------+ + + | EXTERNAL LAB | | | | + +---------+ + + External Lab: Protein, Total (03/01/2016) + +-------+ + + + | Component | Value | Ref Range | Performed | Pathologist | | | | | At | Signature | + +-------+ + + + | Protein, | 7.6 | 6 - 8 | EXTERNAL | | | Total, | | | LAB | | | External | | | | | + +-------+ + + + + +---------+ + + | Performing | Address | City/State/Zipcode | Phone Number | | Organization | | | | + +---------+ + + | EXTERNAL LAB | | | | + +---------+ + + External Lab: Calcium (03/01/2016) + +-------+ + + + | Component | Value | Ref Range | Performed | Pathologist | | | | | At | Signature | + +-------+ + + + | Calcium, | 9.4 | 8.4 - 10.2 | EXTERNAL | | | External | | | LAB | | + +-------+ + + + + +---------+ + + | Performing | Address | City/State/Zipcode | Phone Number | | Organization | | | | + +---------+ + + | EXTERNAL LAB | | | | + +---------+ + + External Lab: Carbon Dioxide (03/01/2016) + +-------+ + + + | Component | Value | Ref Range | Performed | Pathologist | | | | | At | Signature | + +-------+ + + + | Carbon | 24 | 19 - 31 | EXTERNAL | | | Dioxide, | | | LAB | | | External | | | | | + +-------+ + + + + +---------+ + + | Performing | Address | City/State/Zipcode | Phone Number | | Organization | | | | + +---------+ + + | EXTERNAL LAB | | | | + +---------+ + + External Lab: Chloride (03/01/2016) + +-------+ + + + | Component | Value | Ref Range | Performed | Pathologist | | | | | At | Signature | + +-------+ + + + | Chloride, | 103 | 95 - 112 | EXTERNAL | | | External | | | LAB | | + +-------+ + + + + +---------+ + + | Performing | Address | City/State/Zipcode | Phone Number | | Organization | | | | + +---------+ + + | EXTERNAL LAB | | | | + +---------+ + + External Lab: Potassium (03/01/2016) + +---------+ + + + | Component | Value | Ref Range | Performed | Pathologist | | | | | At | Signature | + +---------+ + + + | Potassium, | 3.5 (A) | 3.6 - 5.1 | EXTERNAL | | | External | | | LAB | | + +---------+ + + + + +---------+ + + | Performing | Address | City/State/Zipcode | Phone Number | | Organization | | | | + +---------+ + + | EXTERNAL LAB | | | | + +---------+ + + External Lab: Sodium (03/01/2016) + +-------+ + + + | Component | Value | Ref Range | Performed | Pathologist | | | | | At | Signature | + +-------+ + + + | Sodium, | 137 | 132 - 1,443 | EXTERNAL | | | External | | | LAB | | + +-------+ + + + + +---------+ + + | Performing | Address | City/State/Zipcode | Phone Number | | Organization | | | | + +---------+ + + | EXTERNAL LAB | | | | + +---------+ + + External Lab: CBC (03/01/2016) + + + + + + | Component | Value | Ref Range | Performed | Pathologist | | | | | At | Signature | + + + + + + | WBC, | 6.1 | 4.5 - 11 | EXTERNAL | | | External | | | LAB | | + + + + + + | HGB, | 14.4 | 12 - 16 | EXTERNAL | | | External | | | LAB | | + + + + + + | HCT, | 43.3 | 35 - 45 | EXTERNAL | | | External | | | LAB | | + + + + + + | PLT, | 271 | 140 - 440 | EXTERNAL | | | External | | | LAB | | + + + + + + | Neutrophils | 42.4 | 39 - 80 | EXTERNAL | | | %, | | | LAB | | | External | | | | | + + + + + + | Lymphocytes | 44.4 (A) | 24 - 44 | EXTERNAL | | | %, | | | LAB | | | External | | | | | + + + + + + | Monocytes | 9.1 | 0 - 12 | EXTERNAL | | | %, External | | | LAB | | + + + + + + | Eosinophils | 2.9 | 0 - 6 | EXTERNAL | | | %, | | | LAB | | | External | | | | | + + + + + + | RBC, | 5.29 (A) | 3.8 - 5.1 | EXTERNAL | | | External | | | LAB | | + + + + + + | MCV, | 82 | 81 - 99 | EXTERNAL | | | External | | | LAB | | + + + + + + | RDW, | 12.9 | 10.5 - 15 | EXTERNAL | | | External | | | LAB | | + + + + + + + +---------+ + + | Performing | Address | City/State/Zipcode | Phone Number | | Organization | | | | + +---------+ + + | EXTERNAL LAB | | | | + +---------+ + + External Lab: eGFR (03/01/2016) + +-------+ + + + | Component | Value | Ref Range | Performed | Pathologist | | | | | At | Signature | + +-------+ + + + | eGFR, | >60 | 60 - 99,999 | EXTERNAL | | | External | | | LAB | | + +-------+ + + + + + | Specimen | + + | Blood | + + + +---------+ + + | Performing | Address | City/State/Zipcode | Phone Number | | Organization | | | | + +---------+ + + | EXTERNAL LAB | | | | + +---------+ + + External Lab: Creatinine (03/01/2016) + +-------+ + + + | Component | Value | Ref Range | Performed | Pathologist | | | | | At | Signature | + +-------+ + + + | Creatinine, | 0.66 | 0.6 - 1.35 | EXTERNAL | | | External | | | LAB | | + +-------+ + + + + + | Specimen | + + | Blood | + + + +---------+ + + | Performing | Address | City/State/Zipcode | Phone Number | | Organization | | | | + +---------+ + + | EXTERNAL LAB | | | | + +---------+ + + Basic Metabolic Panel (02/19/2016) + +-------+ + + + | Component | Value | Ref Range | Performed | Pathologist | | | | | At | Signature | + +-------+ + + + | Anion Gap | 20 | 7 - 21 mmol/L | | | + +-------+ + + + | BUN/Creatin | 6 | 6 - 28.6 | | | | ine Ratio | | | | | + +-------+ + + + + + | Specimen | + + | Blood | + + Lipid Panel (02/19/2016) + +---------+ + + + | Component | Value | Ref Range | Performed | Pathologist | | | | | At | Signature | + +---------+ + + + | VLDL | 29 | 4 - 40 | | | | Cholesterol | | | | | | [place] | | | | | + +---------+ + + + | Chol/HDL | 4.5 (A) | 0.0 - 4.4 | | | | Ratio | | | | | + +---------+ + + + | Non-HDL | 156 (A) | 0 - 130 | | | | Cholesterol | | | | | + +---------+ + + + + + | Specimen | + + | Blood | + + External Lab: BUN (02/19/2016) + +-------+ + + + | Component | Value | Ref Range | Performed | Pathologist | | | | | At | Signature | + +-------+ + + + | BUN, | 13 | 6 - 23 | EXTERNAL | | | External | | | LAB | | + +-------+ + + + + +---------+ + + | Performing | Address | City/State/Zipcode | Phone Number | | Organization | | | | + +---------+ + + | EXTERNAL LAB | | | | + +---------+ + + External Lab: Glucose (02/19/2016) + +--------+ + + + | Component | Value | Ref Range | Performed | Pathologist | | | | | At | Signature | + +--------+ + + + | Glucose, | 62 (A) | 70 - 100 | EXTERNAL | | | External | | | LAB | | + +--------+ + + + + +---------+ + + | Performing | Address | City/State/Zipcode | Phone Number | | Organization | | | | + +---------+ + + | EXTERNAL LAB | | | | + +---------+ + + External Lab: Calcium (02/19/2016) + +-------+ + + + | Component | Value | Ref Range | Performed | Pathologist | | | | | At | Signature | + +-------+ + + + | Calcium, | 9.8 | 8.4 - 10.2 | EXTERNAL | | | External | | | LAB | | + +-------+ + + + + +---------+ + + | Performing | Address | City/State/Zipcode | Phone Number | | Organization | | | | + +---------+ + + | EXTERNAL LAB | | | | + +---------+ + + External Lab: Carbon Dioxide (02/19/2016) + +-------+ + + + | Component | Value | Ref Range | Performed | Pathologist | | | | | At | Signature | + +-------+ + + + | Carbon | 23 | 19 - 31 | EXTERNAL | | | Dioxide, | | | LAB | | | External | | | | | + +-------+ + + + + +---------+ + + | Performing | Address | City/State/Zipcode | Phone Number | | Organization | | | | + +---------+ + + | EXTERNAL LAB | | | | + +---------+ + + External Lab: Chloride (02/19/2016) + +-------+ + + + | Component | Value | Ref Range | Performed | Pathologist | | | | | At | Signature | + +-------+ + + + | Chloride, | 100 | 95 - 112 | EXTERNAL | | | External | | | LAB | | + +-------+ + + + + +---------+ + + | Performing | Address | City/State/Zipcode | Phone Number | | Organization | | | | + +---------+ + + | EXTERNAL LAB | | | | + +---------+ + + External Lab: Potassium (02/19/2016) + +-------+ + + + | Component | Value | Ref Range | Performed | Pathologist | | | | | At | Signature | + +-------+ + + + | Potassium, | 3.7 | 3.6 - 5.1 | EXTERNAL | | | External | | | LAB | | + +-------+ + + + + +---------+ + + | Performing | Address | City/State/Zipcode | Phone Number | | Organization | | | | + +---------+ + + | EXTERNAL LAB | | | | + +---------+ + + External Lab: Sodium (02/19/2016) + +-------+ + + + | Component | Value | Ref Range | Performed | Pathologist | | | | | At | Signature | + +-------+ + + + | Sodium, | 139 | 132 - 143 | EXTERNAL | | | External | | | LAB | | + +-------+ + + + + +---------+ + + | Performing | Address | City/State/Zipcode | Phone Number | | Organization | | | | + +---------+ + + | EXTERNAL LAB | | | | + +---------+ + + External Lab: TSH (02/19/2016) + + + + + + | Component | Value | Ref Range | Performed | Pathologist | | | | | At | Signature | + + + + + + | TSH, | 3.42Comment: 3rd | 0.27 - 4.2 | EXTERNAL | | | External | generation | | LAB | | + + + + + + + + | Specimen | + + | Blood | + + + +---------+ + + | Performing | Address | City/State/Zipcode | Phone Number | | Organization | | | | + +---------+ + + | EXTERNAL LAB | | | | + +---------+ + + External Lab: Triglycerides (02/19/2016) + +-------+ + + + | Component | Value | Ref Range | Performed | Pathologist | | | | | At | Signature | + +-------+ + + + | Triglycerid | 144 | 30 - 150 | EXTERNAL | | | es, | | | LAB | | | External | | | | | + +-------+ + + + + + | Specimen | + + | Blood | + + + +---------+ + + | Performing | Address | City/State/Zipcode | Phone Number | | Organization | | | | + +---------+ + + | EXTERNAL LAB | | | | + +---------+ + + External Lab: Cholesterol, HDL (02/19/2016) + +-------+ + + + | Component | Value | Ref Range | Performed | Pathologist | | | | | At | Signature | + +-------+ + + + | HDL | 44.6 | 40 - 999,999 | EXTERNAL | | | Cholesterol | | mg/dl | LAB | | | , External | | | | | + +-------+ + + + + + | Specimen | + + | Blood | + + + +---------+ + + | Performing | Address | City/State/Zipcode | Phone Number | | Organization | | | | + +---------+ + + | EXTERNAL LAB | | | | + +---------+ + + External Lab: Cholesterol, Total (02/19/2016) + +---------+ + + + | Component | Value | Ref Range | Performed | Pathologist | | | | | At | Signature | + +---------+ + + + | Cholesterol | 201 (A) | 0 - 200 mg/dl | EXTERNAL | | | , Total, | | | LAB | | | External | | | | | + +---------+ + + + + + | Specimen | + + | Blood | + + + +---------+ + + | Performing | Address | City/State/Zipcode | Phone Number | | Organization | | | | + +---------+ + + | EXTERNAL LAB | | | | + +---------+ + + External Lab: Cholesterol, LDL (02/19/2016) + +---------+ + + + | Component | Value | Ref Range | Performed | Pathologist | | | | | At | Signature | + +---------+ + + + | LDL | 128 (A) | 0 - 100 | EXTERNAL | | | Cholesterol | | | LAB | | | , Direct, | | | | | | External | | | | | + +---------+ + + + + + | Specimen | + + | Blood | + + + +---------+ + + | Performing | Address | City/State/Zipcode | Phone Number | | Organization | | | | + +---------+ + + | EXTERNAL LAB | | | | + +---------+ + + External Lab: eGFR (02/19/2016) + +-------+ + + + | Component | Value | Ref Range | Performed | Pathologist | | | | | At | Signature | + +-------+ + + + | eGFR, | >60 | 60 - 99,999 | EXTERNAL | | | External | | | LAB | | + +-------+ + + + + + | Specimen | + + | Blood | + + + +---------+ + + | Performing | Address | City/State/Zipcode | Phone Number | | Organization | | | | + +---------+ + + | EXTERNAL LAB | | | | + +---------+ + + External Lab: Creatinine (02/19/2016) + +-------+ + + + | Component | Value | Ref Range | Performed | Pathologist | | | | | At | Signature | + +-------+ + + + | Creatinine, | 0.73 | 0.6 - 1.35 | EXTERNAL | | | External | | | LAB | | + +-------+ + + + + + | Specimen | + + | Blood | + + + +---------+ + + | Performing | Address | City/State/Zipcode | Phone Number | | Organization | | | | + +---------+ + + | EXTERNAL LAB | | | | + +---------+ + + Vaginal Pathogens DNA (02/15/2016) + + + + + + | Component | Value | Ref Range | Performed | Pathologist | | | | | At | Signature | + + + + + + | Janett | Negative | | | | | Species, | | | | | | DNA probe | | | | | + + + + + + | Gardnerella | Positive | | | | | vaginosis | | | | | + + + + + + | Trichomonas | negative | | | | | vaginalis, | | | | | | DNA probe | | | | | + + + + + + + + | Specimen | + + | Genital | + + Chlamydia trachomatis and Neisseria gonorrhoeae DIAZ (02/15/2016) + + + + + + | Component | Value | Ref Range | Performed | Pathologist | | | | | At | Signature | + + + + + + | Neisseria | Detected | | | | | Gonorrhoeae | | | | | | DNA PCR | | | | | + + + + + + | Chlamydia, | Positive | | | | | Interpretat | | | | | | ion | | | | | + + + + + + + + | Specimen | + + | | + + documented in this encounter Visit Diagnoses Not on filedocumented in this encounter"
--- OUTSIDE RECORDS SUMMARY | ~2020-04-24 | XMS | Encounter Summary ---
Demographics + + + | Address | [address] | | | [place] [address] | + + + | Home Phone | | + + + | Preferred Language | Unknown | + + + | Marital Status | Single | + + + | Nondenominational Affiliation | Unknown | + + + | Race | White | + + + | Ethnic Group | Not or | + + + Author + + + | Author | [facility] | | | and [place] | + + + | Organization | [facility] | | | [...] Team Providers + +------+ + | Care Promotional Advertising Assistant Name | Role | Phone | + +------+ + | Karson Williamson MD | PCP | | + +------+ + Reason for Visit Auth/Cert +--------+--------+ + + + + | Status | Reason | Specialty | Diagnoses / | Referred By | Referred To | | | | | Procedures | Contact | Contact | +--------+--------+ + + + + | | | | Diagnoses | | | | | | | Abdominal | | | | | | | pain, | | | | | | | generalized | | | | | | | (R10.84), | | | | | | | Hematemesis | | | | | | | with nausea | | | | | | | (K92.0, | | | | | | | R11.0), | | | | | | | Rectal | | | | | | | bleeding | | | | | | | (K62.5), | | | | | | | Ulcerative | | | | | | | colitis with | | | | | | | | | | | | | | complication | | | | | | | , | | | | | | | unspecified | | | | | | | location | | | | | | | (HCC) | | | | | | | (K51.919), | | | | | | | Morbid | | | | | | | obesity with | | | | | | | BMI of | | | | | | | 40.0-44.9, | | | | | | | adult (HCC) | | | | | | | (E66.01, | | | | | | | Z68.41); ETO | | | | | | | H abuse | | | | | | | (f10.10); | | | | | | | Cannabis use | | | | | | | (f12.90) | | | | | | | Procedures | | | | | | | [place] | | | | | | | ESOPHAGOGAST | | | | | | | RODUODENOSCO | | | | | | | PY TRANSORAL | | | | | | | DIAGNOSTIC | | | | | | | [place] EGD | | | | | | | TRANSORAL | | | | | | | BIOPSY | | | | | | | SINGLE/MULTI | | | | | | | PLE [place] | | | | | | | COLONOSCOPY | | | | | | | FLX DX | | | | | | | W/COLLJ SPEC | | | | | | | WHEN PFRMD | | | | | | | [place] | | | | | | | COLONOSCOPY | | | | | | | W/BIOPSY | | | | | | | SINGLE/MULTI | | | | | | | PLE [place] | | | | | | | COLSC FLX | | | | | | | W/RMVL OF | | | | | | | TUMOR POLYP | | | | | | | LESION SNARE | | | | | | | TQ [place] | | | | | | | ANESTH,UGI | | | | | | | ENDOSCOPY | | | | | | | [place] | | | | | | | ANESTH,INTES | | | | | | | TONYA,SCOPE,L | | | | | | | OW EGD | | | | | | | COLONOSCOPY | | | +--------+--------+ + + + + Encounter Details +--------+ + + + + | Date | Type | Department | Care Team | Description | +--------+ + + + + | 01/21/ | Anesthesia | [facility] | Skyler Hlom | | | 2017 | Event | [facility] | MD [place] [address] | | | | | [address] | [address] [facility] | | | | | [place] | [place] [id number] | | | | | [id number] | [phone] | | | | | [phone] | | | +--------+ + + + + Anesthesia Record + + + + + | Procedure Name | Responsible | Anesthesia Start | Anesthesia Stop Time | | | Anesthesiologist | Time | | + + + + + | PANTERA (N/A Mouth) | Skyler Holm, | 01/21/17 1224 | 01/21/17 1311 | | | MD | | | + + + + + +----+---+ + + | Da | T | Event | Comment | | te | i | | | | | m | | | | | e | | | +----+---+ + + | 07 | 1 | | | | /1 | 1 | | | | 8/ | 2 | | | | 20 | 5 | | | | 17 | | | | +----+---+ + + | | 1 | An Checkout | Pre-use anesthesia machine/equipment checkout. | | | 2 | | | | | 2 | | | | | 3 | | | +----+---+ + + | | 1 | An Start | Reassessment prior to anesthesia induction/procedure. | | | 2 | | | | | 2 | | | | | 4 | | | +----+---+ + + | | 1 | AN | Per surgeon request | | | 2 | Antibiotic | | | | 2 | declined | | | | 4 | | | +----+---+ + + | | 1 | Pre-Procedu | | | | 2 | ral Timeout | | | | 2 | Completed | | | | 8 | | | +----+---+ + + | | 1 | An | | | | 2 | Induction | | | | 2 | | | | | 9 | | | +----+---+ + + | | 1 | First | | | | 2 | Inc/Proc St | | | | 3 | | | | | 1 | | | +----+---+ + + | | 1 | Breathing | | | | 3 | Spontaneous | | | | 0 | ly | | | | 0 | | | +----+---+ + + | | 1 | An Stop | Patient handed off to recovery nurse. | | | 1 | | | | | 1 | | | +----+---+ + + +------+ | Meds | +------+ + + + | Name | Total | + + + | propofol (DIPRIVAN) injection | 100 mg | | (bolus) (20 mL) | | + + + | propofol (DIPRIVAN) injection | 648.9 mg | | (bolus) (20 mL) | | + + + | lidocaine 2% | 100 mg | + + + | ondansetron (ZOFRAN) injection 4 | 4 mg | | mg | | + + + | lactated ringers (LR) infusion | 100 mL | + + + + + | Name | + + | O2 Flow Rate (L/Min) | + + + + | No blood administrations on file. | + + +--------+ + + + | Type | Details | Placement | Removal | +--------+ + + + | Periph | 01/21/17; 1213; Left; Posterior | 01/21/17 1213 by | 01/21/17 1349 by | | eral | (dorsal); Wrist; [id number] | Lilian Becerra, | Jennifer Ramirez, | | IV | catheter system; 22 gauge, 1 2 | RN | RN | | | in length; topical anesthetic | | | | | spray applied, tolerated well; | | | | | 01/21/17; 1349 | | | +--------+ + + + documented in this encounter Social History + + + +--------+------+ | [...] + + documented as of this encounter OR Notes Anesthesia Postprocedure Evaluation - Skyler Holm MD - 01/21/2017 1:37 PM PDTForm atting of this note might be different from the original. ANESTHESIA POSTANESTHESIA EVALUATION Paula Breaux 26 y.o. female 1990 [id number] Procedure(s) EGD (N/A Mouth) COLONOSCOPY (N/A Rectum) Cooperates? Yes Mental Status Performs simple tasks. Respiratory Satisfactory - Airway patent (self maintained). Cardiovascular Satisfactory - Blood pressure and heart rate acceptable Temperature Satisfactory Pain Satisfactory N/V Control Unsatisfactory - Antiemetics ordered Hydration Satisfactory - No signs of dehydration Complications None apparent Vitals: 01/21/17 1101 01/21/17 1309 BP: 129/85 92/58 Pulse: 96 92 Temp: 36.6 C (97.9 F) 36.2 C (97.2 F) Resp: 18 SpO2: 100% 96% Electronically signed by Skyler Holm MD 01/21/2017 13:37 [facility] nesthesia Preprocedure Evaluation - Skyler Holm MD - 2016 2:49 PM PDT ANESTHESIA PREANESTHESIA EVALUATION Paula Breaux 26 y.o. female 1990 [id number] Procedure(s): EGD (N/A Mouth) COLONOSCOPY (N/A Rectum) Medical history, anesthesia, medications, allergy, NPO status verified histories reviewed. Labs reviewed. Review of Systems / Med History Anesthesia History (-) PONV, difficult intubation, malignant hyperthermia Cardiovascular (-) CAD, angina Pulmonary No acute pulmonary concerns. (+) smoking history(-) asthma, COPD(-) sleep apnea: , Stop Bang Score: 5 Psychology (+) depression, substance abuse (etoh) Renal (-) end-stage renal disease Endocrine (+) obesity: morbid BMI 40+ Physical Exam Airway MP II, Mouth opening >2 FB. Neck: full ROM, Dental ; Grossly normal except where noted below. CV Rhythm regular. Rate Normal. (-) murmur. Pulm Clear to auscultation bilaterally. Neuro Grossly normal. Anesthesia Plan ASA 3 (bmi) Type: General and total IV anesthesia. Induction: Intravenous. Potential problems: None anticipated. Monitors: Standard ASA monitors. Consent statement:Anesthetic plan, alternatives, risks and benefits discussed with patient. Risks discussed included (but were not limited to): nausea, respiratory events, heart probl ems, . Consenting person understands and agrees to proceed. PARQ. Electronically Signed by: Skyler Holm MD ESig date/time: 01/21/2017 11:24 documented in thi s encounter Plan of Treatment Not on filedocumented as of this encounter Visit Diagnoses Not on filedocumented in this encounter Administered Medications + +--------+ +--------+------+------+ | Medication Order | MAR | Action | Dose | Rate | Site | | | Action | Date | | | | + +--------+ +--------+------+------+ | lidocaine (PF) 2% injection | Given | 01/22/20 | 100 mg | | | | Intravenous, PRN, Starting Tue | | 17 12:29 | | | | | 01/21/17 at 1229, Anesthesia | | PM PDT | | | | | Intra-op | | | | | | + +--------+ +--------+------+------+ +---+---+ | | | +---+---+ + +-------+ +------+---+---+ | ondansetron (ZOFRAN) injection | Given | 01/22/20 | 4 mg | | | | 4 mg 4 mg, Intravenous, ONCE | | 17 1:00 | | | | | PRN, Nausea, Starting Fri01/21/17 | | PM PDT | | | | | at 1122, For 1 dose, Pre-op | | | | | | + +-------+ +------+---+---+ +---+---+ | | | +---+---+ + +-------+ +--------+---+---+ | propofol (DIPRIVAN) injection | Given | 01/22/20 | 100 mg | | | | PRN, Starting Fri01/21/17 at | | 17 12:29 | | | | | 1229, Anesthesia Intra-op | | PM PDT | | | | + +-------+ +--------+---+---+ +---+---+ | | | +---+---+ + +---------+ + +-------+---+ | propofol (DIPRIVAN) injection | New Bag | 01/22/20 | 150 | 92.7 | | | CONTINUOUS PRN, Starting Tue | | 17 12:29 | mcg/kg/m | mL/hr | | | 01/21/17 at 1229, Anesthesia | | PM PDT | in | | | | Intra-op | | | | | | + +---------+ + +-------+---+ +---+---+ | | | +---+---+ documented in this encounter"
--- OUTSIDE RECORDS SUMMARY | ~2020-04-24 | XMS | Encounter Summary ---
Demographics + + + | Address | [address] | | | [place] [address] | + + + | Home Phone [...] Author + + + | Author | [facility] | | | and [place] | + + + | Organization | [facility] | | | [...] Team Providers + +------+ + | Care Orchid Hand Name | Role | Phone | + +------+ + | Karson Williamson MD | PCP | | + +------+ + Reason for Referral Diagnostic/Screening (Routine) +--------+--------+ + + + + | Status | Reason | Specialty | Diagnoses / | Referred By | Referred To | | | | | Procedures | Contact | Contact | +--------+--------+ + + + + | Closed | | Radiology | Diagnoses | | | | | | | Abdominal | [place], | | | | | | pain, | Marisol, | | | | | | 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 [address] | | | | | | Hematemesis | [address] | | | | | | with nausea | [address] | | | | | | Procedures | [place], | | | | | | [place] Gastric | [place] [address] | | | | | | Emptying | Phone: | | | | | | | [phone] | | | | | | | Fax: | | | | | | | [phone] | | +--------+--------+ + + + + Diagnostic/Screening (Routine) +--------+--------+ + + + + | Status | Reason | Specialty | Diagnoses / | Referred By | Referred To | | | | | Procedures | Contact | Contact | +--------+--------+ + + + + | Closed | | | Diagnoses | | [address] | | | | | Abdominal | [place], | [facility] | | | | | pain, | Marisol, | HOSPITAL | | | | | 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 [address] | [address] | | | | | Hematemesis | [address] | [address] | | | | | with nausea | [address] | [place], [place] | | | | | Procedures | [place], | [address] | | | | | [place] Gastric | [place] [address] | Phone: | | | | | Emptying | Phone: | [phone] | | | | | [facility] | [phone] | Fax: | | | | | EMPTYING | Fax: | [phone] | | | | | IMAGING | [phone] | | | | | | STUDY | | | +--------+--------+ + + + + Reason for Visit + + + | Reason | Comments | + + + | Abdominal Pain | | + + + Evaluate & Treat (Routine) +--------+--------+ + + + + | Status | Reason | Specialty | Diagnoses / | Referred By | Referred To | | | | | Procedures | Contact | Contact | +--------+--------+ + + + + | Closed | | Gastroenterol | Diagnoses | [place], | [facility] | | | | ogy | Gastritis | Karson | Gastroenterol | | | | | Chronic | MD Sherman | tara [address] | | | | | inflammation | [address] | | | | | of colon | [address] | [address] [place] | | | | | Procedures | [place], | [place], [place] | | | | | Office Visit | [place] [address] | [address] | | | | | | Phone: | Phone: | | | | | | [phone] | [phone] | | | | | | Fax: | Fax: | | | | | | [phone] | [phone] | +--------+--------+ + + + + Encounter Details +--------+---------+ + + + | Date | Type | Department | Care Team | Description | +--------+---------+ + + + | 12/30/ | Office | [facility] [place] | [facility], | Abdominal pain, | | 2017 | Visit | GASTROENTEROLOGY | ARIELLE Damon [address] | generalized (Primary | | | | [address] | [address] | Dx); Hematemesis | | | | [address] [place], [place] | [place], [place] | with nausea; Rectal | | | | [address] | [id number] | bleeding; Ulcerative | | | | [phone] | | colitis with | | | | | | complication, | | | | | | unspecified location | | | | | | (HCC); Morbid | | | | | | obesity with BMI of | | | | | | 40.0-44.9, adult | | | | | | ([facility]) | +--------+---------+ + + + Social History + +-------+ +--------+------+ | Tobacco Use | Types | Packs/Day | Years | Date | | | | | Used | | + +-------+ +--------+------+ | Current Every Day | | 0.25 | | | | Smoker | | | | | + +-------+ +--------+------+ + + | Tobacco Cessation: Ready to Quit: No; Counseling Given: Yes | + + + + + + + | Alcohol [...] + + documented as of this encounter Last Filed Vital Signs + + + + + | Vital Sign | Reading | Time Taken | Comments | + + + + + | Blood Pressure | 110/70 | 12/30/2016 10:42 AM | | | | | PDT | | + + + + + | Pulse | 92 | 12/30/2016 10:42 AM | | | | | PDT | | + + + + + | Temperature | - | - | | + + + + + | Respiratory Rate | 16 | 12/30/2016 10:42 AM | | | | | PDT | | + + + + + | Oxygen Saturation | - | - | | + + + + + | Inhaled Oxygen | - | - | | | Concentration | | | | + + + + + | Weight | 102.1 kg (225 lb) | 12/30/2016 10:42 AM | | | | | PDT | | + + + + + | Height | 157.5 cm (5' 2") | 12/30/2016 10:42 AM | | | | | PDT | | + + + + + | Body Mass Index | 41.15 | 12/30/2016 10:42 AM | | | | | PDT | | + + + + + documented in this encounter Patient Instructions Patient Instructions Marisol Duncan ARNP - 12/30/2016 4:07 PM PDT Abdominal Pain Abdominal pain is pain in the stomach or belly area. Everyone has this pain from time to ti me. In many cases it goes away on its own. But abdominal pain can sometimes be due to a seri ous problem, such as appendicitis. So it s important to know when to seek help. Causes of abdominal pain There are many possible causes of abdominal pain. Common causes in adults include: Constipation, diarrhea, or gas Stomach acid flowing back up into the esophagus (acid reflux or heartburn) Severe acid reflux, called GERD (gastroesophageal reflux disease) A sore in the lining of the stomach or small intestine (peptic ulcer) Inflammation of the gallbladder, liver,or pancreas Gallstones or kidney stones Appendicitis Intestinal blockage An internal organ pushing through a muscle or other tissue (hernia) Urinary tract infections In women, menstrual cramps, fibroids, or endometriosis Inflammation or infection of the intestines Diagnosing the cause of abdominal pain Your healthcare provider will do a physical exam help find the cause of your pain. If neede d, tests will be ordered. Belly pain has many possible causes. So it can be hard to find the reason for your pain. Giving details about your pain can help. Tell your provider where and when you feel the pain, and what makes it better or worse. Also let your provider know if y ou have other symptoms such as: Fever Tiredness Upset stomach (nausea) Vomiting Changes in bathroom habits Treating abdominal pain Some causes of pain need emergency medical treatment right away. These include appendicitis or a bowel blockage. Other problems can be treated with rest, fluids, or medicines. Your [facility] provider can give you specific instructions for treatment or self-care based on wha t is causing your pain. If you have vomiting or diarrhea,sip water or other clear fluids. When you are ready to e at solid foods again, start with small amounts of oixl-nt-qsmxom, low-fat foods. These inclu de apple sauce, toast, or crackers. When to seek medical care Call 911or go to the hospital right away if you: Can t pass stool and are vomiting Are vomiting blood or have bloody diarrhea or black, tarry diarrhea Have chest, neck, or shoulder pain Feel like you might pass out Have pain in your shoulder blades with nausea Have sudden, severe belly pain Have new, severepain unlike any you have felt before Have a belly that is rigid, hard, and tender to touch Call your healthcare provider if you have: Pain for more gtnu1hocs Bloating for more than 2days Diarrhea for more veia2qruj A fever of 100.4F (38.0C) or higher, or as directed by your provider Pain that gets worse Weight loss for no reason Continued lack of appetite Blood in your stool How to prevent abdominal pain Here are some tips to help prevent abdominal pain: Eat smaller amounts of food at one time. Avoid greasy, fried, or other high-fat foods. Avoid foods that give you gas. Exercise regularly. Drink plenty of fluids. To help prevent GERD symptoms: Quit smoking. Reduce alcohol and certain foods that increase stomach acid. Avoid aspirin and iqtd-ymw-bnzlqmo pain and fever medicines (NSAIDS or nonsteroidal anti -inflammatory drugs), if possible Lose extra weight. Finish eating at least 2 hours before you go to bed or lie down. Raise the head of your bed. Date Last Reviewed: 01/05/201619995424-3573 [employer]. [address] [place] [address], [place] [address]. All righ ts reserved. This information is not intended as a substitute for professional medical care. Always follow your healthcare professional's instructions. documented in this encounter Progress Notes Hermelinda Sampson RN - 12/30/2016 11:00 AM PDTScheduled for egd/colon with prop on 01/21 at [address] Farmer; GES study ordered, will call to schedule once approved, patient [facility] ne [facility]. Marisol connor ARNP - 12/30/2016 11:00 AM PDT PATIENT NAME: Paula Breaux : 1990: AGE: 26 y.o. REFERRED BY: Karson Williamson PRIMARY CARE: Krason Williamson MD Subjective: CHIEF COMPLAINT: Paula Breaux is a 26 y.o. female referred by Karson Williamson MD for evaluation and treatment of abdominal pain. HISTORY OF PRESENT ILLNESS: Patient reports having increased abdominal pain about 6 years ago. Further testing indicate d possible gallbladder dysfunction. She had cholecystectomy done at that time. Pain has cont inued despite cholecystectomy. Pain is mainly in mid abdomen on the right side. Pain comes daily. Can last a couple hours. Feels like twisting pain. Changing positions can help some. She has tried tylenol, ibuprofe n, hydrocodone, heat pads, and cooling pads. Lifting up kids can worsen pain. Has not notice d any changes with eating or not eating. She is now eating once per day. No change in discom fort with eating or not. Complains of nausea throughout the day. This is not associated with the pain. Has had negat junior test. Notes rectal bleeding that comes about every other week to every week. When she has these e pisodes, she notices blood with every bowel movement and can last up to 3 days. She has 4-5 bowel movements per day on average. Typically stools are loose. No real formed bowel movemen ts. Denies parvin diarrhea. She also notes intermittent hematemesis for the past 2-3 months. The last time she had this episode, she was told there was pus in the back of her throat. Denies coffee ground emesis. Describes emesis as acid and food she has eaten hours before. Has increased bowel movements since cholecystectomy. MEDICAL, SURGICAL, AND PERSONAL HISTORY: Vitals: 12/30/16 1042 BP: 110/70 Pulse: 92 Resp: 16 PainSc: 6 PainLoc: Abdomen Allergies Allergen Reactions Amoxicillin Rash and Other (See Comments) Throat closes Codeine Hives and Rash Penicillins Rash and Other (See Comments) Throat closes Past Medical History: Diagnosis Date Abdominal pain Alcohol abuse Anxiety disorder Biliary colic Biliary dyskinesia Colitis Depression Esophageal reflux Gastritis Hemorrhage of anus and rectum Nausea Rectal bleeding Rheumatic fever Substance abuse Past Surgical History: Procedure Laterality Date CEASAREAN SECTION, MULTIPLES 2010, 2013 CHOLECYSTECTOMY COLONOSCOPY 09/11/2016 diagnoses: Gastritis. unspecified left-sided colitis. ~ [facility] Dr. Briones DILATION AND CURETTAGE OF UTERUS TOOTH EXTRACTION UPPER GASTROINTESTINAL ENDOSCOPY 2009 Family History Problem Relation Age of Onset Heart disease Father Cancer Father Laryngeal Cancer Maternal Grandmother Malignant breast neoplasm Cancer Maternal Aunt Malignant breast neoplasm Social History Social History Marital status: Single Spouse name: N/A Number of children: N/A Years of education: N/A Occupational History Not on file. Social History Main Topics Smoking status: Current Every Day Smoker Packs/day: 0.25 Smokeless tobacco: Not on file Alcohol use 4.2 - 8.4 oz/week 7 - 14 Cans of beer per week Comment: parties on the weekends and dinks quite a bit Drug use: Types: Marijuana Comment: uses various drugs Sexual activity: Not on file Other Topics Concern Not on file Social History Narrative No narrative on file Review Of Systems Constitutional: Denies any fevers, chills, or unintentional weight loss. Eye: Denies using glaucoma eye drops. Denies dry, burning, painful eyes Respiratory:Denies shortness of breath, cough or wheezing. Gastrointestinal:Complains of rectal bleeding, hematemesis, nausea and vomiting, and abdomi nal pain. Denies constipation, diarrhea, hemorrhoids, heartburn, or dysphagia. Skin: Denies rashes Neurological: Complains of memory difficulties and frequent bothersome headaches. Denies nu mbness or tingling, muscle weakness, paralysis of arms or legs, epilepsy or seizure. ENT: Complains of ringing and buzzing in ears. Denies hearing loss, hearing aids, constantl y runny nose, nasal obstruction, hayfever, dentures, or hoarseness. Cardiovascular:Denies chest pain, palpitations, or swelling to legs. Genitourinary: Complains of frequent nocturnal urination. Denies painful urination, urine i ncontinence, waking up on average more than once per night to urinate, bloody urine, or impo tence. Musculoskeletal: Denies swollen joints, painful back, or painful joints. Psychiatric: Complains of depression and anxiety. Endocrine: Denies enlarged thyroid Hematology/ Lymph: Denies anemia or enlarged lymph glands. Objective: PHYSICAL EXAM: General: well developed, well nourished, in no acute distress. Head: normocephalic and atraumatic Eyes: Sclera clear Mouth: MMM Lungs: Clear to auscultate bilaterally and throughout Heart: regular rate and rhythm Abdomen: Soft, tender over left side of mid abdomen, non distended, bowel tones positive times 4 quadrants, negative Gann's sign, negative rebound tenderness, no guarding, no hepatosplen omegaly palpated. Rectal: Will be done prior to procedure Msk: symmetrical with no deformity, with normal posture and gait, normal strength. Extremities: no clubbing, cyanosis, edema, or deformity noted Neurologic: no focal deficits, cranial nerves II-XII grossly intact Skin: intact without lesions or rashes. Psych: alert and cooperative; normal mood and affect; normal attention span and concentration. Abstract on 12/16/2016 Component Date Value Ref Range Status Colonoscopy Impression, External 09/11/2016 diagnoses: Gastritis. unspecified left-side d colitis. ~ [facility] Dr. Briones Final DIAGNOSIS: 09/11/2016 A.) MUCOSA, DUODENUM, BIOPSY: No pathologica diagnosis Final DIAGNOSIS: 09/11/2016 B.) MUCOSA, ANTRUM, BIOPSY: Mild chronic inactive gastritis Fin al DIAGNOSIS: 09/11/2016 C.) MUCOSA, ILEUM, BIOPSY: No pathologic diagnosis Final DIAGNOSIS: 09/11/2016 D.) MUCOSA, RIGHT COLON, BIOPSY: mild focal intramucosal hemorrha ge. minimal non-specific chronic inflammation and mucosal edema. Final DIAGNOSIS: 09/11/2016 E.) MUCOSA, TRANSVERSE COLON, BIOPSY: minimal non-specific chroni c inflammation. Final DIAGNOSIS: 09/11/2016 F.) MUCOSA, 80 CM REGION, BIOPSY: mucosal edema. mild focal mucos al hemmorrhage. minimal to mild non-specific chronic inflammation. Final DIAGNOSIS: 09/11/2016 G.) MUCOSA, 45 CM REGION, BIOPSY: mucosal edema. mild focal mucos al hemorrhage. minimal to mild non-specific chronic inflammation. Final DIAGNOSIS: 09/11/2016 H.) MUCOSA, 20 CM REGION, BIOPSY: mucosal edema. mild focal mucos al hemmorrhage. minimal to mild non-specific chronic inflammation. Final DIAGNOSIS: 09/11/2016 I.) MUCOSA, RECTUM, BIOPSY: mucosa edema. mild focal mucosal hemo rrhage. minimal to mild non-specific chronic inflammation. Final CLOTEST 09/11/2016 Negative Negative Final Result 05/20/2016 05-21-16 no growth after overnight incubation. Final Result 05/20/2016 05-22-16 50,000 cfu/mL mixed growth. Bacteria isolated probably repre sent contaminating jose. Final HCG SCREEN, URINE 08/09/2016 Negative Final UA Blood, External 08/09/2016 Negative Final UA Glucose, External 08/09/2016 Normal Final UA Ketones, External 08/09/2016 Negative Final UA Ph, External 08/09/2016 6 5 - 9 Final UA Proteins, External 08/09/2016 Negative Final UA RBC, External 08/09/2016 2 0 - 4 Final UA Specific [place], External 08/09/2016 1.029 1.005 - 1.03 Final UA Leukocyte Esterase, External 08/09/2016 Negative Final COLLECTION METHOD 1 08/09/2016 Clean Catch Final Color 08/09/2016 Yellow Final CLARITY 08/09/2016 Clear Final BILIRUBIN UA 08/09/2016 Negative Negative Final NITRITE UA 08/09/2016 Negative Negative Final UROBILINOGEN UA 08/09/2016 4 mg/dL* < 0.2 mg/dL, 1.0 mg/dL, 4.0 mg/dL, Normal, 1.0 E.U. /dL, 0.2 E.U./dL, 0.2 mg/dL, Negative, 1 mg/dL, <2.0 mg/dL Final CASTS 08/09/2016 Negative Final WBC, UA 08/09/2016 0 0 - 4 Final Squamous epithelial, UA, POC 08/09/2016 2+ Final CRYSTAL UA 08/09/2016 Negative Final BACTERIA UA 08/09/2016 Trace* Negative /HPF Final Creatinine, External 08/09/2016 0.63 0.6 - 1.35 Final eGFR, External 08/09/2016 >60 60 - 99,999 Final INR, External 08/09/2016 0.9 Final PT, External 08/09/2016 12* 12.1 - 15.3 Final WBC, External 08/09/2016 5.7 4.5 - 11 Final HGB, External 08/09/2016 13.7 12 - 16 Final HCT, External 08/09/2016 42.1 35 - 45 Final PLT, External 08/09/2016 247 140 - 440 Final Neutrophils %, External 08/09/2016 45.3 39 - 80 Final Lymphocytes %, External 08/09/2016 43.7 24 - 44 Final Monocytes %, External 08/09/2016 7.5 0 - 12 Final Eosinophils %, External 08/09/2016 3.3 0 - 6 Final RBC, External 08/09/2016 5.17* 3.8 - 5.1 Final MCV, External 08/09/2016 82 81 - 99 Final RDW, External 08/09/2016 12.1 10.5 - 15 Final Sodium, External 08/09/2016 144* 132 - 143 Final Potassium, External 08/09/2016 3.3* 3.6 - 5.1 Final Chloride, External 08/09/2016 106 95 - 112 Final Carbon Dioxide, External 08/09/2016 26 19 - 31 Final Calcium, External 08/09/2016 9.1 8.4 - 10.2 Final Protein, Total, External 08/09/2016 7.3 6 - 8 Final Albumin, External 08/09/2016 4.3 3.5 - 5 Final Bilirubin, Total, External 08/09/2016 0.5 0 - 1.2 Final ALP, External 08/09/2016 39 31 - 130 Final AST, External 08/09/2016 24 13 - 39 Final ALT, External 08/09/2016 36 7 - 52 Final Glucose, External 08/09/2016 89 70 - 100 Final BUN, External 08/09/2016 16 6 - 23 Final PTT, External 08/09/2016 29.1 22.9 - 41.3 Final MCH 08/09/2016 26.0 26.0 - 33.0 pg Final MCHC 08/09/2016 33.0 30.0 - 36.0 % Final Basophils % 08/09/2016 0.2 0 - 2 Final ANION GAP 08/09/2016 15 7 - 21 mmol/L Final BUN/Creatinine Ratio 08/09/2016 25.4 6 - 28.6 Final Globulin 08/09/2016 3 1.8 - 3.5 Final Albumin/Globulin Ratio 08/09/2016 1.4 1.1 - 2.4 Final HCG SCREEN, URINE 09/11/2016 Negative Final WBC, External 08/02/2016 6.7 4.5 - 11 Final HGB, External 08/02/2016 14.5 12 - 16 Final HCT, External 08/02/2016 44.8 35 - 45 Final PLT, External 08/02/2016 238 140 - 440 Final Neutrophils %, External 08/02/2016 53.6 39 - 80 Final Lymphocytes %, External 08/02/2016 39.3 24 - 44 Final Monocytes %, External 08/02/2016 4.2 0 - 12 Final Eosinophils %, External 08/02/2016 2.7 0 - 6 Final RBC, External 08/02/2016 5.48* 3.8 - 5.1 Final MCV, External 08/02/2016 82 81 - 99 Final RDW, External 08/02/2016 12.3 10.5 - 15 Final MCH 08/02/2016 26.0 26.0 - 33.0 pg Final MCHC 08/02/2016 32.0 30.0 - 36.0 % Final Basophils % 08/02/2016 0.2 0 - 2 Final UA Blood, External 08/02/2016 Negative Final UA Glucose, External 08/02/2016 Normal Final UA Ketones, External 08/02/2016 Negative Final UA Ph, External 08/02/2016 5 5 - 9 Final UA Proteins, External 08/02/2016 Negative Final UA RBC, External 08/02/2016 0 0 - 4 Final UA Specific [place], External 08/02/2016 1.023 1.005 - 1.03 Final UA Leukocyte Esterase, External 08/02/2016 Negative Final COLLECTION METHOD 1 08/02/2016 Clean Catch Final Color 08/02/2016 Yellow Final CLARITY 08/02/2016 Clear Final BILIRUBIN UA 08/02/2016 Negative Negative Final NITRITE UA 08/02/2016 Negative Negative Final UROBILINOGEN UA 08/02/2016 Normal < 0.2 mg/dL, 1.0 mg/dL, 4.0 mg/dL, Normal, 1.0 E.U./ dL, 0.2 E.U./dL, 0.2 mg/dL, Negative, 1 mg/dL, <2.0 mg/dL Final WBC, UA 08/02/2016 2 0 - 4 Final Squamous epithelial, UA, POC 08/02/2016 negative Final CRYSTAL UA 08/02/2016 Negative Final BACTERIA UA 08/02/2016 Trace* Negative /HPF Final Creatinine, External 05/14/2016 0.66 0.6 - 1.35 Final eGFR, External 05/14/2016 >60 60 - 999,999 Final WBC, External 05/14/2016 7.5 4.5 - 11 Final HGB, External 05/14/2016 14.4 12 - 16 Final HCT, External 05/14/2016 43.5 35 - 45 Final PLT, External 05/14/2016 267 140 - 440 Final RBC, External 05/14/2016 5.2* 3.8 - 5.1 Final MCV, External 05/14/2016 82 81 - 99 Final RDW, External 05/14/2016 12.4 10.5 - 15 Final HCV, External 05/14/2016 Non-Reactive Non-Reactive Final Sodium, External 05/14/2016 138 132 - 143 Final Potassium, External 05/14/2016 3.6 3.6 - 5.1 Final Chloride, External 05/14/2016 104 95 - 112 Final Carbon Dioxide, External 05/14/2016 25 19 - 31 Final Calcium, External 05/14/2016 9.5 8.4 - 10.2 Final Phosphorus, External 05/14/2016 3.8 2.5 - 5 Final Albumin, External 05/14/2016 4.7 3.5 - 5 Final ALT, External 05/14/2016 30 7 - 52 Final Glucose, External 05/14/2016 82 70 - 100 Final BUN, External 05/14/2016 12 6 - 23 Final Neutrophils %, External 05/14/2016 48 39 - 80 Final Lymphocytes %, External 05/14/2016 42 24 - 44 Final Monocytes %, External 05/14/2016 6 0 - 12 Final Eosinophils %, External 05/14/2016 2 0 - 6 Final ANION GAP 05/14/2016 13 7 - 21 mmol/L Final BUN/Creatinine Ratio 05/14/2016 18.2 6 - 28.6 Final HIV 1/2 Ag/Ab 05/14/2016 non-reactive Final MCH 05/14/2016 28.0 26.0 - 33.0 pg Final MCHC 05/14/2016 33.0 30.0 - 36.0 % Final Basophils % 05/14/2016 0 0 - 2 Final HEP B E AB 05/14/2016 Negative Final HEP B E AG 05/14/2016 Negative Final HCG SCREEN, URINE 05/14/2016 Negative Final Creatinine, External 03/01/2016 0.66 0.6 - 1.35 Final eGFR, External 03/01/2016 >60 60 - 99,999 Final WBC, External 03/01/2016 6.1 4.5 - 11 Final HGB, External 03/01/2016 14.4 12 - 16 Final HCT, External 03/01/2016 43.3 35 - 45 Final PLT, External 03/01/2016 271 140 - 440 Final Neutrophils %, External 03/01/2016 42.4 39 - 80 Final Lymphocytes %, External 03/01/2016 44.4* 24 - 44 Final Monocytes %, External 03/01/2016 9.1 0 - 12 Final Eosinophils %, External 03/01/2016 2.9 0 - 6 Final RBC, External 03/01/2016 5.29* 3.8 - 5.1 Final MCV, External 03/01/2016 82 81 - 99 Final RDW, External 03/01/2016 12.9 10.5 - 15 Final Sodium, External 03/01/2016 137 132 - 1,443 Final Potassium, External 03/01/2016 3.5* 3.6 - 5.1 Final Chloride, External 03/01/2016 103 95 - 112 Final Carbon Dioxide, External 03/01/2016 24 19 - 31 Final Calcium, External 03/01/2016 9.4 8.4 - 10.2 Final Protein, Total, External 03/01/2016 7.6 6 - 8 Final Albumin, External 03/01/2016 4.7 3.5 - 5 Final Bilirubin, Total, External 03/01/2016 0.9 0 - 1.2 Final ALP, External 03/01/2016 41 30 - 128 Final AST, External 03/01/2016 19 13 - 39 Final ALT, External 03/01/2016 23 7 - 52 Final Amylase, Serum, External 03/01/2016 39 29 - 103 Final Lipase, External 03/01/2016 19 11 - 82 Final Glucose, External 03/01/2016 97 70 - 100 Final BUN, External 03/01/2016 11 6 - 23 Final ANION GAP 03/01/2016 14 7 - 21 mmol/L Final BUN/Creatinine Ratio 03/01/2016 16.7 6 - 28.6 Final Globulin 03/01/2016 2.9 1.8 - 3.5 Final Albumin/Globulin Ratio 03/01/2016 1.6 1.1 - 2.4 Final HCG 03/01/2016 negative Final MCH 03/01/2016 27.0 26.0 - 33.0 pg Final MCHC 03/01/2016 33.0 30.0 - 36.0 % Final Basophils % 03/01/2016 1.2 0 - 2 Final Neisseria Gonorrhoeae DNA PCR 02/15/2016 Detected Final Chlamydia, Interpretation 02/15/2016 Positive Final Janett Species, DNA probe 02/15/2016 Negative Final Gardnerella vaginosis 02/15/2016 Positive Final Trichomonas vaginalis, DNA probe 02/15/2016 negative Final Creatinine, External 02/19/2016 0.73 0.6 - 1.35 Final eGFR, External 02/19/2016 >60 60 - 99,999 Final LDL Cholesterol, External 02/19/2016 128* 0 - 100 Final Cholesterol, Total, External 02/19/2016 201* 0 - 200 mg/dl Final HDL Cholesterol, External 02/19/2016 44.6 40 - 999,999 mg/dl Final Triglycerides, External 02/19/2016 144 30 - 150 Final TSH, External 02/19/2016 3.42 0.27 - 4.2 Final Sodium, External 02/19/2016 139 132 - 143 Final Potassium, External 02/19/2016 3.7 3.6 - 5.1 Final Chloride, External 02/19/2016 100 95 - 112 Final Carbon Dioxide, External 02/19/2016 23 19 - 31 Final Calcium, External 02/19/2016 9.8 8.4 - 10.2 Final Glucose, External 02/19/2016 62* 70 - 100 Final BUN, External 02/19/2016 13 6 - 23 Final VLDL Cholesterol Vance 02/19/2016 29 4 - 40 Final Chol/HDL Ratio 02/19/2016 4.5* 0.0 - 4.4 Final Non-HDL Cholesterol 02/19/2016 156* 0 - 130 Final ANION GAP 02/19/2016 20 7 - 21 mmol/L Final BUN/Creatinine Ratio 02/19/2016 6 6 - 28.6 Final EGD and colonoscopy 09/11/[address] Briones: Post operative diagnoses: 1. Gastritis 2. Unspecified left sided colitis. Pathology 09/11/2016: A. Mucosa, duodenum, biopsy: - No pathologic diagnosis. B. Mucosa, antrum, biopsy: - Mild chronic inactive gastritis. C. Mucosa, ileum, biopsy: - No pathologic diagnosis. D. Mucosa, right colon, biopsy: - Mild focal intramucosal hemorrhage. - Minimal non-specific chronic inflammation and mucosal edema. E. Mucosa, transverse colon, biopsy: - Minimal non-specific chronic inflammation. F. Mucosa, 80 cm region, biopsy: - Mucosal edema - Mild focal mucosal hemorrhage - Minimal to mild non-specific chronic inflammation G. Mucosa, 45 cm region, biopsy: - Mucosal edema - Mild focal mucosal hemorrhage - Minimal to mild non-specific chronic inflammation H. Mucosa, 20 cm region, biopsy: - Mucosal edema - Mild focal mucosal hemorrhage - Minimal to mild non-specific chronic inflammation I. Mucosa, rectum, biospy: - Mucosal edema - Mild focal mucosal hemorrhage - Minimal to mild non-specific chronic inflammation Assessment: 1. Abdominal pain, generalized NM Gastric Emptying Case request: egd/colonoscopy; N/A NM Gastric Emptying 2. Hematemesis with nausea NM Gastric Emptying Case request: egd/colonoscopy; N/A NM Gastric Emptying 3. Rectal bleeding Case request: egd/colonoscopy; N/A 4. Ulcerative colitis with complication, unspecified location (HCC) Case request: egd/colo noscopy; N/A 5. Morbid obesity with BMI of 40.0-44.9, adult (HCC) Case request: egd/colonoscopy; N/A Plan: Patient to have EGD and colonoscopy for further evaluation. The procedural techniques, risk s, indications, and alternatives were discussed. Among the risks, are perforation, bleeding , infection, allergic/adverse reactions to medications, and cardiovascular complications. E ach of these could result in hospitalization, additional procedures (including surgery), or other life threatening complications. Patient verbalized understanding. Risk factors to col o-rectal cancer discussed with patient including smoking, obesity, excessive red meat ingest ion, advancing age and first degree family relative with history of colo-rectal cancer discu ssed with patient. Patient to call with any questions or concerns prior to procedure. Patient to have gastric emptying study to check for motility issues. Encouraged small frequent meals. Will follow up with results. Patient is to call with any question or concerns. Any fevers, chills, chest pain, SOB or other serious symptoms patient is to call the office or go to ER . Cc: Karson Williamson MD This note was dictated using voice recognition software. Please contact me if there are an y questions regarding its content. documented in this encounter Plan of Treatment + +---------+--------+ + + | Name | Type | Priori | Associated Diagnoses | Order Schedule | | | | ty | | | + +---------+--------+ + + | NM Gastric Emptying | Imaging | Routin | Abdominal pain, | Expected: | | | | e | generalized | 12/30/2016, Expires: | | | | | Hematemesis with | 04/29/2017 | | | | | nausea | | + +---------+--------+ + + | NM Gastric Emptying | Imaging | Routin | Abdominal pain, | Expected: 12/30/2016 | | | | e | generalized | (Approximate), | | | | | Hematemesis with | Expires: 12/31/2017 | | | | | nausea | | + +---------+--------+ + + documented as of this encounter Visit Diagnoses + + | Diagnosis | + + | Abdominal pain, generalized - Primary | + + | Hematemesis with nausea | + + | Rectal bleeding Hemorrhage of rectum and anus | + + | Ulcerative colitis with complication, unspecified location (HCC) | + + | Morbid obesity with BMI of 40.0-44.9, adult (HCC) | + + documented in this encounter
--- OUTSIDE RECORDS SUMMARY | ~2020-04-24 | XMS | Encounter Summary ---
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 | Phone | + [...] | | | | | | | Generalized | | | | | | | abdominal | | | | | | | pain | | | | | | | (R10.84), | | | | | | | Hematemesis, | | | | | | | presence of | | | | | | | nausea not | | | | | | | specified | | | | | | | (K92.0), | | | | | | | [...] | | | | | | | Z68.41), | | | | | | | ETOH abuse | | | | | | | (F10.10), | | | | | | | Cannabis | | | | | | | abuse, | | | | | | | continuous | | | | | | | use (F12.10) | | | | | | | Procedures | | | | | | | [place] | | | | | | | COLONOSCOPY | | | | | | | FLX DX | | | | | | | W/COLLJ SPEC | | | | | | | WHEN PFRMD | | | | | | | [place] | | | | | | | COLONOSCOPY | | | | | | | W/BIOPSY | | | | | | | SINGLE/MULTI | | | | | | | PLE [place] | | | | | | | COLSC FLX | | | | | | | W/RMVL OF | | | | | | | TUMOR POLYP | | | | | | | LESION SNARE | | | | | | | TQ [place] | | | | | | | ANESTH,INTES | | | | | | | ROXANA CASTANEDAL | | | | | | | OW | | | | | | | COLONOSCOPY | | | +--------+--------+ + + + + Encounter Details +--------+ + + + + | Date | Type | Department | Care Team | Description | +--------+ + + + + | 03/07/ | Hospital | [facility] | Johan Farmer MD | Abdominal pain, | | 2017 | Encounter | [facility] | [address] | generalized; Rectal | | | | [address] | [place] | bleeding | | | | [place], [place] | [address] | | | | | [address] | [phone] | | | | | [phone] | | | +--------+ + + + [...] + + + | Blood Pressure | 85/43 | 03/07/2017 10:38 AM | | | | | PDT | | + + + + + | Pulse | 59 | 03/07/2017 10:38 AM | | | | | PDT | | + + + + + | Temperature | 36.3 C (97.3 F) | 03/07/2017 10:38 AM | | | | | PDT | | + + + + + | Respiratory Rate | 16 | 03/07/2017 10:38 AM | | | | | PDT | | + + + + + | Oxygen Saturation | 96% | 03/07/2017 10:38 AM | | | | | PDT | | + + + + + | Inhaled Oxygen | - | - | | | Concentration | | | | + + + + + | Weight | 101.9 kg (224 lb | 03/07/2017 9:10 AM | | | | 11.2 oz) | PDT | | + + + + + | Height | 157.5 cm (5' 2") | 03/07/2017 9:10 AM | | | | | PDT | | + + + + + | Body Mass Index | 41.1 | 03/07/2017 9:10 AM | | | | | PDT | | + + + + + documented in this encounter Discharge Instructions Instructions Johan Farmer MD - 03/06/2017Patient Discharge Instructions after an Endosco py Procedure ? You may resume your regular diet after discharge. ? Do not drive, operate machinery, make critical decisions or do activities that require co ordination or balance for 24hrs. ? Resume normal medications unless otherwise instructed. ? If biopsies were taken, the physician s office will contact you within 7-10 days. ? If a colonoscopy was performed, then you may continue to expel large amounts of air from your rectum. Please call the physician who did your procedure at [phone] if you have any questions or experience any of the following: ? Increasing abdominal pain, nausea, or vomiting. ? Chills and fever over 101F. ? New abdominal swelling or bloating. ? Signs of rectal bleeding (black or red stool). If you cannot get a hold of your physician, then call the [facility] [phone] . If necessary, report to the Emergency Department at [facility]. Quit smoking: If you smoke or have smoked within the last year, quitting is the most import ant thing you can do to protect and improve your health. documented in this encounter Medications at Time of Discharge + + + +---------+ + + | Medication | Sig | Dispensed | Refills | Start | End Date | | | | | | Date | | + + + +---------+ + + | ondansetron | Take two tablets PO | 10 | 1 | 02/12/20 | | | (ZOFRAN) 4 mg tablet | 45 minutes before | tablet | | 17 | | | | each half of prep; | | | | | | | Take remaining every | | | | | | | 8 hours PO PRN. | | | | | + + + +---------+ + + | PARoxetine (PAXIL) | Take 50 mg by mouth | | 0 | | | | 20 mg tablet | every morning. | | | | | + + + +---------+ + + | SUMAtriptan | take 1 tablet by | | 0 | 01/30/20 | | | (IMITREX) 50 mg | mouth AT ONSET OF | | | 17 | | | tablet | migraines CAN TAKE | | | | | | | SECOND DOSE... | | | | | | | (REFER TO | | | | | | | PRESCRIPTION NOTES). | | | | | + + + +---------+ + + documented as of this encounter H&P Notes Johan Farmer MD - 03/07/2017 10:16 AM PDTPatient interviewed, history and physical, symp toms reviewed VS signs noted, no change from previous H&P or assessment and plan.Electronic ally signed by Johan Farmer MD at 03/07/2017 10:16 AM Johan Madden MD - 03/06/2017 8:28 AM PDT PRE-ENDOSCOPY HISTORY AND PRE-SEDATION ASSESSMENT PATIENT NAME: Paula Breaux : 1990 TODAY'S DATE: 03/06/2017 PLANNED PROCEDURE: colonoscopy PERTINENT HISTORY/INDICATION FOR PROCEDURE: Paula Breaux is a 27 y.o. female who is un dergoing colonoscopy for abdominal pain, nausea, rectal bleeding and history of ulcerative c olitis. Last colon 01/21/2017 with poor prep. PAST HISTORY: Past Medical History: Diagnosis Date Abdominal pain Alcohol abuse Anxiety disorder Biliary colic Biliary dyskinesia Colitis Depression Esophageal reflux Gastritis Hemorrhage of anus and rectum Nausea PONV (postoperative nausea and vomiting) Rectal bleeding Rheumatic fever Substance abuse PAST SURGICAL HISTORY Past Surgical History: Procedure Laterality Date CEASAREAN SECTION, MULTIPLES 2010, 2013 CHOLECYSTECTOMY COLONOSCOPY 09/11/2016 diagnoses: Gastritis. unspecified left-sided colitis. ~ [facility] Dr. Briones COLONOSCOPY N/A 01/21/2017 Procedure: COLONOSCOPY; Surgeon: Johan Farmer MD; Location: [facility] DILATION AND CURETTAGE OF UTERUS TOOTH EXTRACTION UPPER GASTROINTESTINAL ENDOSCOPY 2008 UPPER GASTROINTESTINAL ENDOSCOPY N/A 01/21/2017 Procedure: EGD; Surgeon: Johan Farmer MD; Location: [facility] HOME MEDS: Scheduled Meds: Continuous Infusions: PRN Meds:. ALLERGIES Allergies Allergen Reactions Amoxicillin Rash and Other (See Comments) Throat closes Penicillins Rash and Other (See Comments) Throat closes Codeine Hives and Rash ASA CLASSIFICATION: Class 3 - A patient with severe systemic disease that limits activity b ut is not incapacitating EXAMINATION: There were no vitals taken for this visit. General: Alert and oriented Throat: Normal Lungs: Clear Heart: Regular rate and rhythm with out significant murmur Abdomen: flat, normal bowel sounds. Soft, nontender 1. Available medical records have been reviewed. 2. Medication list reviewed. IMPRESSION: . Patient appropriate for procedure. PLAN: 1. Proceed with procedure as stated above with moderate sedation/analgesia 2. Procedure, indications, risks and alternatives explained to patient/family and they agre ed to proceed and consent was signed. 3. Patient will be reevaluated immediately (1-2 minutes) before sedation administration and approved for the plan as stated above. Electronically Signed by: Johan Farmer MD 03/06/2017 [facility] Portions of this chart may have been created with [employer] voice recognition software. Occasi onal wrong-word or sound-alike substitutions may have occurred due to the inherent cervantes itations of voice recognition software. Please read the chart carefully and recognize, using context, where these substitutions have occurred documented in this encounter Miscellaneous Notes D-C Instructions Provation - Johan Farmer MD - 03/07/2017 10:04 AM REYESDischajocelynn Instruct ions for Colonoscopy Exams Patient: Paula Breaux : 1990 Acct: [id number] Exam Date: Tuesday, March 07, 2017 Doctor: Johan Farmer MD You have had an examination of the gastrointestinal tract. The chances of difficulty foll owing this procedure are minimal. The following instructions will assist you in your recov hawa. ACTIVITIES: Rest quietly until sedation wears off. DO NOT drive a motor vehicle or operate machinery for 24 hours after sedation. Be cautious making critical decisions for 24 hours after sedation. DIET: If throat has been sprayed, do not eat or drink for 1 hour after. Start with a swallow of tap water, if you experience any lack of sensation in your throat, wait another 30 - 60 min utes and start with water again. Once swallowing has returned to normal you may resume your usual diet unless otherwise instructed by your physician. DISCOMFORT: If you had a bowel exam, you may have some abdominal discomfort from the air put into your bowel during the exam. Moving about will help you pass this air. Sometimes the medication s given to you during the exam can aggravate the veins. The chemical irritation can cause inflammation or pain along the arm with redness, swelling and warmth. This does not mean t here is an infection. You can treat the affected area by applying warm,wet compresses (tow els) 4 times a day for 20 minutes at a time until inflammation is resolved. REPORT TO YOUR DOCTOR: Unusual abdominal pain Chest pain or unusual shortness of breath Shoulder pain Nausea, vomiting Fever over 100 degrees, chills Signs of rectal bleeding (red or black stools) Any concern you have resulting from procedure You may reach your physician at Work: . If unable to reach your physician, call [facility] Emergency Department at Ext. [phone] Your doctor recommends these additional instructions: You have a contact number available for emergencies. The signs and symptoms of potential delayed complications were discussed with you. You may return to normal activities tomorro w. Written discharge instructions were provided to you. Eat a high fiber diet. Continue your present medications. We are waiting for your pathology results. Your physician has recommended a repeat colonoscopy for surveillance based on pathology re sults. Return to your GI clinic as needed. The findings and recommendations have been discussed with you. These instructions have bee n explained to the patient and/or escort. A copy has been given to the patient/escort. Nurse Signatur e Patient Signature Escort Signatu re Date Johan Farmer MD 03/07/2017 10:44:42 AM This report has been signed electronically.Electronically signed by Johan Farmer MD at 10:45 AM PDTdocumented in this encounter Plan of Treatment Not on filedocumented as of this encounter Procedures + +--------+ + + + | Procedure Name | Priori | Date/Time | Associated Diagnosis | Comments | | | ty | | | | + +--------+ + + + | COLONOSCOPY | | 03/07/2017 | Generalized | | | | | 10:11 AM | abdominal pain | | | | | PDT | (R10.84), | | | | | | Hematemesis, | | | | | | presence of nausea | | | | | | not specified | | | | | | (K92.0), Rectal | | | | | | bleeding (K62.5), | | | | | | Ulcerative colitis | | | | | | with complication, | | | | | | unspecified location | | | | | | ([facility] (K51.919), | | | | | | Morbid obesity with | | | | | | BMI of 40.0-44.9, | | | | | | adult ([facility]) (E66.01, | | | | | | Z68.41), ETOH | | | | | | abuse (F10.10), | | | | | | Cannabis abuse, | | | | | | continuous use | | | | | | (F12.10) | | + +--------+ + + + | COLONOSCOPY | Routin | 03/07/2017 | | Results for this | | | e | 10:04 AM | | procedure are in the | | | | PDT | | results section. | + +--------+ + + + | POCT TEST, | STAT | 03/07/2017 | | Results for this | | URINE, QUAL | | 9:30 AM | | procedure are in the | | | | PDT | | results section. | + +--------+ + + + | SURGICAL PATHOLOGY | Routin | 03/07/2017 | | Results for this | | EXAM | e | 12:00 AM | | procedure are in the | | | | PDT | | results section. | + +--------+ + + + documented in this encounter Results COLONOSCOPY (03/07/2017 10:04 AM PDT) + + | Specimen | + + | | + + + + -+ | Narrative | Performed At | + + -+ | | [facility] | | GastroenterologyPatient Name: Paula Sanchez Date: 03/07/2017 | [facility] | | 10:04 AMMRN: [id number] #: [id number] of : | | | 1990Admit Type: AmbulatoryAge: 27Room: [facility] 02Gender: FemaleNote | | | Status: FinalizedAttending MD: Johan Farmer MDProcedure: | | | ColonoscopyIndications: Abdominal pain, Chronic | | | diarrhea, HematocheziaProviders: Johan Farmer MD, | | | Ofelia Garber RN, Nicole Blackman, | | | Life Insurance Specialist, Franck Martin MD (Anesthesia Staff)Referring MD: | | | Karson Williamson MD (Referring MD)Medicines: | | | Monitored Anesthesia CareComplications: No immediate | | | complications.Procedure: Pre-Anesthesia Assessment: - | | | Prior to the procedure, a History and Physical was performed, and | | | patient medications and allergies were reviewed. The patient is | | | competent. The risks and benefits of the procedure and the | | | sedation options and risks were discussed with the patient. All | | | questions were answered and informed consent was obtained. | | | Patient identification and proposed procedure were verified by | | | the physician, the nurse, the anesthesiologist and the | | | experimental technician in the pre-procedure area in the endoscopy suite. | | | Mental Status Examination: alert and oriented. Airway | | | Examination: normal oropharyngeal airway and neck mobility. | | | Respiratory Examination: clear to auscultation. CV Examination: | | | normal. Prophylactic Antibiotics: The patient does not require | | | prophylactic antibiotics. Prior Anticoagulants: The patient | | | has taken no previous anticoagulant or antiplatelet agents. ASA | | | Grade Assessment: III - A patient with severe systemic | | | disease. After reviewing the risks and benefits, the patient | | | was deemed in satisfactory condition to undergo the procedure. The | | | anesthesia plan was to use monitored anesthesia care (MAC). | | | Immediately prior to administration of medications, the patient | | | was re-assessed for adequacy to receive sedatives. The heart | | | rate, respiratory rate, oxygen saturations, blood pressure, | | | adequacy of pulmonary ventilation, and response to care were | | | monitored throughout the procedure. The physical status of the | | | patient was re-assessed after the procedure. After I obtained | | | informed consent, the scope was passed under direct vision. | | | Throughout the procedure, the patient's blood pressure, pulse, | | | and oxygen saturations were monitored continuously. The Colonoscope | | | was introduced through the anus and advanced to the terminal | | | ileum, with identification of the appendiceal orifice and IC | | | valve. The colonoscopy was performed without difficulty. The | | | patient tolerated the procedure well. The quality of the bowel | | | preparation was fair.Findings: The perianal and digital rectal | | | examinations were normal. The colon (entire examined portion) | | | appeared normal. Biopsies for histology were taken with a cold | | | forceps from the right colon, left colon and transverse colon | | | for evaluation of microscopic colitis. Verification of patient | | | identification for the specimen was done by the physician and | | | nurse using the patient's name and date. Estimated blood | | | loss was minimal. The terminal ileum appeared normal. | | | Non-bleeding internal hemorrhoids were found during retroflexion. The | | | hemorrhoids were small. No additional abnormalities were | | | found on retroflexion.Impression: - Preparation of the colon was | | | fair. - The entire examined colon is normal. Biopsied. - | | | The examined portion of the ileum was normal. - Non-bleeding | | | internal hemorrhoids.Recommendation: - Patient has a contact | | | number available for emergencies. The signs and symptoms of | | | potential delayed complications were discussed with the | | | patient. Return to normal activities tomorrow. Written discharge | | | instructions were provided to the patient. - High fiber diet. | | | - Continue present medications. - Await pathology | | | results. - Repeat colonoscopy for surveillance based on | | | pathology results. - Return to GI clinic PRN. - The | | | findings and recommendations were discussed with the patient.Johan | | | Micheal Farmer MD03/07/2017 10:44:42 AMThis report has been signed | | | electronically.Number of Addenda: 0Note Initiated On: 03/07/2017 10:04 | | | AMScope Withdrawal Time: 0 hours 13 minutes 4 seconds Total Procedure | | | Duration: 0 hours 17 minutes 25 seconds Scope In: 10:17:18 AMScope | | | Out: 10:34:43 AM [facility], [address] | | [place] [address] | | | - High fiber diet. | | | - Continue present medications. | | | - Await pathology results. | | | - Repeat colonoscopy for surveillance based on pathology results. | | | - Return to GI clinic PRN. | | | - The findings and recommendations were discussed with the patient. | | |Johan Farmer MD | | |03/07/2017 10:44:42 AM | | |This report has been signed electronically. | | |Number of Addenda: 0 | | |Note Initiated On: 03/07/2017 10:04 AM | | |Scope Withdrawal Time: 0 hours 13 minutes 4 seconds | | |Total Procedure Duration: 0 hours 17 minutes 25 seconds | | |Scope In: 10:17:18 AM | | |Scope Out: 10:34:43 AM | | | [facility], [address] [place], [place] | | | [address] | | + + -+ + +---------+ + + | Performing | Address | City/State/[facility] | Phone Number | | Organization | | | | + +---------+ + + | [facility] | | | | + +---------+ + + POCT Test, Urine, QUAL (03/07/2017 9:30 AM PDT) + + + + + + | Component | Value | Ref Range | Performed | Pathologist | | | | | At | Signature | + + + + + + | | Negative | Negative | | | | Test, | | | | | | Urine, POC | | | | | + + + + + + | Internal QC | Acceptable | Acceptable | | | + + + + + + | Specific | | 1.010, 1.015, | | | | [place], | | 1.020, 1.025 | | | | POC | | | | | + + + + + + | Lot Number | [id number] | | | | + + + + + + | Expiration | 2018-09-08 | | | | | Date | | | | | + + + + + + + + | Specimen | + + | Urine | + + Surgical Pathology Exam (03/07/2017 12:00 AM PDT) + + | Specimen | + + | | + + + + + | Narrative | Performed At | + + + | SPECIMEN(S): A RANDOM COLON BIOPSY SPECIMEN SOURCE: [facility] | | COLON BIOPSY CLINICAL HISTORY: R10.84 (generalized abdominal pain), | [facility] | | K92.0 (hematemesis), K62.5 (hemorrhage of anus and rectum), K51.919 | | | (ulcerative colitis, unspecified with unspecified complications), | | | E66.01 (morbid [severe] obesity due to excess calories), Z68.41 (Body | | | mass index (BMI) 40.0-44.9, adult), F10.10 (Alcohol abuse, | | | uncomplicated), F12.10 (cannabis abuse, uncomplicated) MICROSCOPIC | | | DESCRIPTION: Histologic sections of all submitted blocks are examined | | | by light microscopy. These findings, together with the gross | | | examination, support the pathologic diagnosis. FINAL PATHOLOGIC | | | DIAGNOSIS: Colon, random biopsies: - No significant | | | histopathologic abnormality. COMMENT: The colonic mucosa shows | | | normal architecture. There is no evidence of acute, chronic, or | | | microscopic colitis. BES:[facility]:C3NR GROSS DESCRIPTION: Received in | | | formalin labeled "Paula Breaux" and "random colon bxs" on the | | | requisition are six simpson-randall tissue fragments measuring from 0.3-1 cm, | | | submitted, all in (A1). ka:CLR:[facility] PERFORMING LABORATORY: Tissue | | | processing and slide preparation were performed by [employer], | | | [address], [place] [address] (Foreclosure Home Inspector: | | | David Rosas M.D. CLIA#: [id number]). Professional interpretation | | | was performed by [employer], [address], [address] | | | [place] [address] (Foreclosure Home Inspector: David Rosas M.D.; CLIA#: | | | [id number]). Diagnostician: Miguel Ulloa MD Pathologist | | | Electronically Signed 03/11/2017 | | + + + + +---------+ + + | Performing | Address | City/State/Zipcode | Phone Number | | Organization | | | | + +---------+ + + | [place] [facility] | | | | | [facility] | | | | + +---------+ + + documented in this encounter Visit Diagnoses + + | Diagnosis | + + | Abdominal pain, generalized | + + | Rectal bleeding Hemorrhage of rectum and anus | + + documented in this encounter Administered Medications + +--------+---------+------+------+------+ | Medication Order | MAR | Action | Dose | Rate | Site | | | Action | Date | | | | + +--------+---------+------+------+------+ + +---+ | albuterol 2.5 mg/3 mL nebulizer | | | solution 2.5 mg 2.5 mg, | | | Nebulization, ONCE PRN, Wheezing, | | | Starting Fri03/07/17 at 1054, For | | | 1 dose, Notify anesthesia if | | | patient is wheezing and does not | | | have a history of asthma or COPD | | | or current smoking., | | | Recovery/Phase I | | + +---+ | | | + +---+ | albuterol-ipratropium (DUONEB) | | | 2.5-0.5 mg/3 mL nebulizer | | | solution 3 mL 3 mL, | | | Nebulization, ONCE PRN, Wheezing, | | | Starting Fri03/07/17 at 1054, For | | | 1 dose, Pre-op | | + +---+ | | | + +---+ | dextrose 50% injection 12.5-25 | | | g 12.5-25 g, Intravenous, EVERY | | | 15 MIN PRN, Low Blood Sugar, Give | | | 12.5g (25 mL) IV if blood | | | glucose 50-69 mg/dL. Give 25g | | | (50 mL) IV if blood glucose < 50, | | | Starting 03/07/17 at 1054, | | | Repeat in 15 min if blood glucose | | | remains < 70 mg/dL. Repeat | | | blood glucose in 30 min once | | | blood glucose > 70., Pre-op | | + +---+ | | | + +---+ | dextrose 50% injection 12.5-25 | | | g 12.5-25 g, Intravenous, EVERY | | | 15 MIN PRN, Low Blood Sugar, For | | | hypoglycemia. Give 12.5g (25ml) | | | IV if blood glucose 50-69 | | | mg/dL. Give 25g (50ml) IV if | | | blood glucose < 50, Starting Fri | | | 03/07/17 at 1054, Give over 2 min. | | | Repeat in 15 min if blood | | | glucose remains < 70 mg/dL. | | | Repeat blood glucose in 30 min | | | once blood glucose > 70., | | | Recovery/Phase I | | + +---+ | | | + +---+ | lactated ringers (LR) infusion | | | at 100 mL/hr, Intravenous, | | | CONTINUOUS, Starting Fri03/07/17 | | | at 1115, Pre-op | | + +---+ | | | + +---+ | ondansetron (ZOFRAN ODT) | | | disintegrating tablet 4 mg 4 mg, | | | Oral, EVERY 6 HOURS PRN, Nausea, | | | Vomiting, Starting Fri03/07/17 at | | | 1054, First line agent, | | | Post-op/Phase II | | + +---+ | | | + +---+ | ondansetron (ZOFRAN) injection | | | 4 mg 4 mg, Intravenous, EVERY 6 | | | HOURS PRN, Nausea, Vomiting, | | | Starting Fri03/07/17 at 1054, | | | First line agent. Use PO option | | | unless NPO status or unable to | | | tolerate., Post-op/Phase II | | + +---+ | | | + +---+ | scopolamine (TRANSDERM-SCOP) 1 | | | mg/3 days 1 patch 1 patch, | | | Transdermal, ONCE PRN, For | | | history of PONV. Need not | | | apply if h/o PONV is remote and | | | has likely been resolved with | | | modern anesthetics or | | | ondansetron. Also, please do | | | not administer to patients >65 | | | year of age without phone consult | | | with anesthesiologist., Starting | | | Fri03/07/17 at 1054, For 1 dose, | | | Apply to mastoid process, Pre-op | | + +---+ | | | + +---+ documented in this encounter
--- OUTSIDE RECORDS SUMMARY | ~2020-04-24 | XMS | Encounter Summary ---
Demographics + + + | Address | [address] | | | [place] [address] | + + + | Home Phone | | + + + | Preferred Language | Unknown | + + + | Marital Status | Single | + + + | Adventism Affiliation | Unknown | + + + | Race | White | + + + | Ethnic Group | Not or | + + + Author + + + | Author | [facility] | | | and [place] | + + + | Organization | [facility] | | | [...] Team Providers + +------+ + | Care Vp Ad Sales West Name | Role | Phone | + +------+ + | Karson Williamson MD | PCP | | + +------+ + Reason for Visit + +--------+ + | Reason | Onset | Comments | | | Date | | + +--------+ + | Procedure | 02/07/ | | | | 2016 | | + +--------+ + Encounter Details +--------+ + + + + | Date | Type | Department | Care Team | Description | +--------+ + + + + | 02/07/ | Telephone | [facility] | Johan Farmer MD | Procedure | | 2017 | | GASTROENTEROLOGY | [address] | | | | | [address] [facility] | [place], [place] | | | | | [address], [place] | [address] | | | | | [address] | [phone] | | | | | [phone] | | | +--------+ + + + [...] this encounter Miscellaneous Notes Telephone Encounter - Michela Alvarez RN - 02/11/2017 9:23 AM TAMIKA Phan received ok ay from Dr Farmer to dispense 10 tablets of Zofran 4mg, 2 tablets PO for prep due to severe n ausea and vomiting. Informed patient to take two tablets by mouth 45 minutes before each hyun f of the prep and every eight hours as needed and that the prescription was sent to her [facility]. Patient verbalized understanding. elephone Encounter - Hermelinda Sampson RN - 02/10/2017 2:18 PM PDTCalled patient and she is rescheduled for colon with prop on 03/[address] Farmer; poor prep on 01/21; advised extended prep with magnesium citrate; reviewed instructions over phone and hard copies mailed; patient confirmed she will have driver helper; email sent to Dr. Fermin s asking if ok to prescribe more Zofran due to n/v with prep on 01/21, will call patient to i nform ok once I hear back from Dr. Farmer; patient agreed with plan and verbalized understand ing. elephone Encount niall - Silvia Granger - 02/07/2017 3:53 PM PDTPatient returned call, please call at . elephone Encounter - Hermelinda Sampson RN - 02/07/2017 12:15 PM PDTLVM for return call; patient has yet to sche dule GES; also needs repeat colon with 2 day prep and Golytely and magnesium citrate next mo nth due to poor prep on 01/21 colon; results letter mailed; chart with Hermelinda. documented in this encounter Plan of Treatment Not on filedocumented as of this encounter Visit Diagnoses + + | Diagnosis | + + | Generalized abdominal pain - Primary Abdominal pain, generalized | + + | Hematemesis, presence of nausea not specified | + + | Rectal bleeding Hemorrhage of rectum and anus | + + | Ulcerative colitis with complication, unspecified location (HCC) | + + | Morbid obesity with BMI of 40.0-44.9, adult (HCC) | + + | ETOH abuse Alcohol abuse, unspecified | + + | Cannabis abuse, continuous use Cannabis abuse, continuous | + + documented in this encounter"
--- OUTSIDE RECORDS SUMMARY | ~2020-04-24 | XMS | Encounter Summary ---
Demographics + + + | Address | [address] | | | [place] [address] | + + + | Home Phone | | + + + | Preferred Language | Unknown | + + + | Marital Status | Single | + + + | Yazidism Affiliation | Unknown | + + + | Race | White | + + + | Ethnic Group | Not or | + + + Author + + + | Author | [facility] | | | and [place] | + + + | Organization | [facility] | | | [...] Team Providers + +------+ + | Care Knitted Garment Finisher Name | Role | Phone | + [...] | | | | | | | NM | | | | | | | COLONOSCOPY | | | | | | | FLX DX | | | | | | | W/COLLJ SPEC | | | | | | | WHEN PFRMD | | | | | | | NM | | | | | | | COLONOSCOPY | | | | | | | W/BIOPSY | | | | | | | SINGLE/MULTI | | | | | | | PLE NM | | | | | | | COLSC FLX | | | | | | | W/RMVL OF | | | | | | | TUMOR POLYP | | | | | | | LESION SNARE | | | | | | | TQ NM | | | | | | | MEL ZAMAN | | | | | | | ROXANA CASTANEDA L | | | | | | | OW | | | | | | | COLONOSCOPY | | | +--------+--------+ + + + + Encounter Details +--------+---------+ + + + | Date | Type | Department | Care Team | Description | +--------+---------+ + + + | 03/07/ | Surgery | [facility] | Johan Farmer MD | COLONOSCOPY | | 2017 | | [facility] | [address] | | | | | [address] | [place] | | | | | [place] | [address] | | | | | [address] | [phone] | | | | | [phone] | | | +--------+---------+ + + + Social History + + [...] + + + | Blood Pressure | 103/63 | 03/07/2017 9:10 AM | | | | | PDT | | + + + + + | Pulse | 78 | 03/07/2017 9:10 AM | | | | | PDT | | + + + + + | Temperature | 36.7 C (98.1 F) | 03/07/2017 9:10 AM | | | | | PDT | | + + + + + | Respiratory Rate | 20 | 03/07/2017 9:10 AM | | | | | PDT | | + + + + + | Oxygen Saturation | 91% | 03/07/2017 9:10 AM | | | [...] the physician who did your procedure at [phone] if you have any questions or experience any of the following: ? Increasing abdominal pain, nausea, or vomiting. ? Chills and fever over 101F. ? New abdominal swelling or bloating. ? Signs of rectal bleeding (black or red stool). If you cannot get a hold of your physician, then call the [facility] [phone] . If necessary, report to the Emergency Department at [facility]. Quit smoking: If you smoke or have [...] Johan Farmer MD at 03/07/2017 10:16 AM Jhoan Madden MD - 03/06/2017 8:28 AM PDT [...] Procedure Laterality Date CEASAREAN SECTION, MULTIPLES 2010, 2014 CHOLECYSTECTOMY COLONOSCOPY 09/11/2016 diagnoses: Gastritis. unspecified left-sided colitis. ~ [facility] Dr. Briones COLONOSCOPY N/A 01/21/2017 Procedure: COLONOSCOPY; Surgeon: Johan Farmer MD; Location: [facility] MEDICAL PROCEDURE UNIT DILATION AND CURETTAGE OF UTERUS TOOTH EXTRACTION UPPER GASTROINTESTINAL ENDOSCOPY 2008 UPPER GASTROINTESTINAL ENDOSCOPY N/A 01/21/2017 Procedure: EGD; Surgeon: Johan Farmer MD; Location: [facility] MEDICAL PROCEDURE UNIT HOME MEDS: Scheduled Meds: [...] Electronically Signed by: Johan Farmer MD 03/06/2017 [facility] Portions of this chart may have been created with Bahoui voice recognition software. Occasi onal wrong-word or sound-alike substitutions may have occurred due to the inherent cervantes itations of voice recognition software. Please read the chart carefully and recognize, using context, where these substitutions have occurred documented in this encounter Miscellaneous Notes D-C Instructions Provation - Johan Farmer MD - 03/07/2017 10:04 AM PDTDischarge Instruct ions for Colonoscopy Exams Patient: Paula Breaux : 1990 Acct: [id number] Exam Date: Tuesday, March 07, 2017 Doctor: [...] If unable to reach your physician, call [facility] Emergency Department at Ext. 2500 Your doctor [...] location | | | | | | ([facility]) (K51.919), | | | | | | Morbid obesity with | | | | | | BMI of 40.0-44.9, | | | | | | adult ([facility]) (E66.01, | | | | | | [...] | [facility] | | GastroenterologyPatient Name: Paula BreauxSatya Date: 03/07/2017 | PROVATION | | 10:04 AMMRN: [id number] #: [id number] of : | | | 1990Admit Type: AmbulatoryAge: 27Room: [facility] 02Gender: FemaleNote | | | Status: FinalizedAttending MD: Johan Farmer MDProcedure: | | | ColonoscopyIndications: Abdominal pain, Chronic | | | diarrhea, HematocheziaProviders: Johan Farmer MD, | | | Ofelia Garber RN, Nicole Blackman, | | | Siebel Architect, Franck Martin MD (Anesthesia Staff)Referring MD: | [...] the anesthesiologist and the | | | bacteriology technician in the pre-procedure area in the [...] AMScope | | | Out: 10:34:43 AM [facility]ly [facility], [address] | | | [place] [address] | | | - High fiber diet. [...] |Scope Out: 10:34:43 AM | | | Formerly [facility], [address] [facility], [place], [place] | | | [address] | | + + -+ + +---------+ + + | Performing | Address | City/State/[facility] | Phone Number | | Organization | [...] | 1.010, 1.015, | | | | [place], | | 1.020, 1.025 | | | | POC | | | | | + + + + + + | Lot Number | [id number] | | | | + + + [...] SPECIMEN(S): A RANDOM COLON BIOPSY SPECIMEN SOURCE: A. RANDOM | [place] [facility] | | COLON BIOPSY CLINICAL HISTORY: [...] chronic, or | | | microscopic colitis. BES:[facility]:C3NR GROSS DESCRIPTION: Received in | | | formalin labeled "Paula Breaux" and "random colon bxs" on the | | | requisition are six simpson-randall tissue fragments measuring from 0.3-1 cm, | | | submitted, all in (A1). ka:CLR:[facility] PERFORMING LABORATORY: Tissue | | | processing and slide preparation were performed by [facility], | | | [address], [place] [address] (Proofer: | | | David Rosas M.D. CLIA#: [id number]). Professional interpretation | | | was performed by [facility], [address], [facility] | | | [place] [address] (Proofer: David Rosas M.D.; CLIA#: | | | [id number]). Diagnostician: Miguel Ulloa MD Pathologist | | [...] filedocumented in this encounter Administered Medications + +--------+---------+------+------+------+ [...] glucose < 50, | | | Starting Fri03/07/17 at 1054, | | | Repeat in [...]
--- OUTSIDE RECORDS SUMMARY | ~2020-04-24 | XMS | Encounter Summary ---
Demographics + + + | Address | [address] | | | [place] [address] | + + + | Home Phone | | + + + | Preferred Language | Unknown | + + + | Marital Status | Single | + + + | Oriental Orthodox Affiliation | Unknown | + + + | Race | White | + + + | Ethnic Group | Not or | + + + Author + + + | Author | [facility] | | | and [place] | + + + | Organization | [facility] | | | and [...] Team Providers + +------+ + | Care Locomotive Inspector Name | Role | Phone | + [...] | | | | | | [address] [place], [place] | | | | | | [address] | | | | | | [phone] | | | +--------+ + + + [...]
--- OUTSIDE RECORDS SUMMARY | ~2020-04-24 | XMS | Encounter Summary ---
Demographics + + + | Address | [address] | | | [place] [address] | + + + | Home Phone | | + + + | Preferred Language | Unknown | + + + | Marital Status | Single | + + + | Rastafari Affiliation | Unknown | + + + | Race | White | + + + | Ethnic Group | Not or | + + + Author + + + | Author | [facility] | | | and [place] | + + + | Organization | [facility] | | | [...] Team Providers + +------+ + | Care Instructional Technology Teacher Name | Role | Phone | + [...] | | | | | | | NC | | | | | | | COLONOSCOPY | | | | | | | FLX DX | | | | | | | W/COLLJ SPEC | | | | | | | WHEN PFRMD | | | | | | | NC | | | | | | | COLONOSCOPY | | | | | | | W/BIOPSY | | | | | | | SINGLE/MULTI | | | | | | | PLE NC | | | | | | | COLSC FLX | | | | | | | W/RMVL OF | | | | | | | TUMOR POLYP | | | | | | | LESION SNARE | | | | | | | TQ NC | | | | | | | [...] + + + + | 03/07/ | Anesthesia | [facility] | Franck Martin, | | | 2017 | Event | [facility] | MD [address] | | | | | [address] | [place] | | | | | [place] | [address] | | | | | [address] | | | | | | [phone] | | | +--------+ + + + + Anesthesia Record + + + + + | Procedure Name | Responsible | Anesthesia Start | Anesthesia Stop Time | | | Anesthesiologist | Time | | + + + + + | COLONOSCOPY (N/A | Franck Martin MD | 03/07/17 1008 | 03/07/17 1040 | | Rectum) | | | | + + + + + +----+---+ + + | Da | T | Event | Comment | | te | i | | | | | m | | | | | e | | | +----+---+ + + | 09 | 0 | | | | /0 | 9 | | | | 1/ | 4 | | | | 20 | 4 | | | | 17 | | | | +----+---+ + + | | 0 | An Checkout | Pre-use anesthesia machine/equipment checkout. | | | 9 | | | | | 5 | | | | | 9 | | | +----+---+ + + | | 1 | An Start | Reassessment prior to anesthesia induction/procedure. | | | 0 | | | | | 0 | | | | | 8 | | | +----+---+ + + | | 1 | AN | Per surgeon request | | | 0 | Antibiotic | | | | 0 | declined | | | | 9 | | | +----+---+ + + | | 1 | Pre-Procedu | | | | 0 | ral Timeout | | | | 1 | Completed | | | | 2 | | | +----+---+ + + | | 1 | An | | | | 0 | Induction | | | | 1 | | | | | 4 | | | +----+---+ + + | | 1 | First | | | | 0 | Inc/Proc St | | | | 1 | | | | | 5 | | | +----+---+ + + | | 1 | Breathing | | | | 0 | Spontaneous | | | | 1 | ly | | | | 7 | | | +----+---+ + + | | 1 | an stop | | | | 0 | data | | | | 3 | | | | | 6 | | | +----+---+ + + | | 1 | An Stop | Patient handed off to recovery nurse. | | | 4 | | | | | 0 | | | +----+---+ + + +------+ | Meds | +------+ + +--------+ | Name | Total | + +--------+ | lidocaine 2% | 100 mg | + +--------+ | propofol | 100 mg | + +--------+ | propofol | 323 mg | + +--------+ | LR (Infusion) | 550 mL | + +--------+ + + | Name | + + | O2 Flow Rate (L/Min) | + + + + | No blood administrations on file. | + + +--------+ + + + | Type | Details | Placement | Removal | +--------+ + + + | Periph | 03/07/17; 34; Right; Hand; 20 | 03/07/1734 by | 03/07/17 1058 by | | eral | gauge; distraction, intradermal | Jessica Cleary RN | Jennifer Ramirez, | | IV | injection, tolerated well; | | RN | | | 03/07/17; 1058 | | | +--------+ + + + [...] encounter OR Notes Anesthesia Postprocedure Evaluation - Franck Martin MD - 03/07/2017 10:43 AM PDTFormatti ng of this note might be different from the original. ANESTHESIA POSTANESTHESIA EVALUATION Paula Breaux 27 y.o. female 1990 [id number] Procedure(s) COLONOSCOPY (N/A Rectum) Cooperates? Yes Mental Status Performs simple tasks. Respiratory Satisfactory - Airway patent (self maintained). Cardiovascular Satisfactory - Blood pressure and heart rate acceptable Temperature Satisfactory Pain Satisfactory N/V Control Satisfactory Hydration Satisfactory - No signs of dehydration Complications None apparent Vitals: 03/07/17 0910 03/07/17 1038 BP: 103/63 (!) 85/43 Pulse: 78 59 Temp: 36.7 C (98.1 F) 36.3 C (97.3 F) Resp: 20 16 SpO2: 91% 96% Electronically signed by Franck Martin MD 03/07/2017 10:43 [facility]ron[facility] signed by Franck Martin MD at 07/2016 10:43 AM PDTAnesthesia Preprocedure Evaluation - Franck Martin MD - 03/07/2017 9: 18 AM PDT ANESTHESIA PREANESTHESIA EVALUATION Paula Breaux 27 y.o. female 1990 [id number] Procedure(s): COLONOSCOPY (N/A Rectum) Medical history, anesthesia, medications, allergy, NPO status verified histories reviewed. Labs reviewed. Review of Systems / Med History Anesthesia History (-) PONV, difficult intubation, malignant hyperthermia Cardiovascular (-) CAD, angina Pulmonary No acute pulmonary concerns. (+) smoking history(-) asthma, COPD(-) sleep apnea: Psychology (+) depression, substance abuse (etoh) Renal (-) end-stage renal disease Endocrine (+) obesity: Physical Exam Airway MP II, Mouth opening >2 FB. Neck: full ROM, Dental ; Grossly normal except where noted below. CV Rhythm regular. Rate Normal. (-) murmur. Pulm Clear to auscultation bilaterally. Neuro Grossly normal. Anesthesia Plan ASA 3 (BMI>40) Type: Total IV anesthesia and general. Induction: Intravenous. Potential problems: None anticipated. Monitors: Standard ASA monitors. Consent statement:Anesthetic plan, alternatives, risks and benefits discussed with patient. Risks discussed included (but were not limited to): perioperative CV events, sore throat, h eart problems, respiratory events, nausea, . Consenting person understands and agrees to proceed. PARQ. TIVA/IVGA w/ propofol.. documented in this en counter Plan of Treatment Not on filedocumented as of this encounter Visit Diagnoses Not on filedocumented in this encounter Administered Medications + +---------+ +------+------+------+ | Medication Order | MAR | Action | Dose | Rate | Site | | | Action | Date | | | | + +---------+ +------+------+------+ | lactated ringers (LR) infusion | New Bag | 03/07/20 | | | | | Intravenous, CONTINUOUS PRN, | | 17 9:59 | | | | | Starting Fri03/07/17 at 0959, | | AM PDT | | | | | Anesthesia Intra-op | | | | | | + +---------+ +------+------+------+ +---+---+ | | | +---+---+ + +-------+ +--------+---+---+ | lidocaine (PF) 2% injection | Given | 03/07/20 | 100 mg | | | | Intravenous, PRN, Starting Fri | | 17 10:14 | | | | | 03/07/17 at 1014, Anesthesia | | AM PDT | | | | | Intra-op | | | | | | + +-------+ +--------+---+---+ +---+---+ | | | +---+---+ + +-------+ +--------+---+---+ | propofol (DIPRIVAN) injection | Given | 03/07/20 | 100 mg | | | | Intravenous, PRN, Starting Fri | | 17 10:14 | | | | | 03/07/17 at 1014, Anesthesia | | AM PDT | | | | | Intra-op | | | | | | + +-------+ +--------+---+---+ +---+---+ | | | +---+---+ + + + + + +---+ | propofol (DIPRIVAN) injection | Rate/Dos | 03/07/20 | 140 | 84 mL/hr | | | Intravenous, CONTINUOUS PRN, | e Change | 17 10:23 | mcg/kg/m | | | | Starting 03/07/17 at 1014, | | AM PDT | in | | | | Anesthesia Intra-op | | | | | | + + + + + +---+ +---------+ + +-------+---+ | New Bag | 03/07/20 | 250 | 150 | | | | 17 10:14 | mcg/kg/m | mL/hr | | | | AM PDT | in | | | +---------+ + +-------+---+ +---+---+ | | | +---+---+ documented in this encounter"
--- OUTSIDE RECORDS SUMMARY | ~2020-04-24 | XMS | Clinical Summary ---
Demographics + + + | Address | [address] | | | [place] [address] | + + + | Home Phone | | + + + | Preferred Language | Unknown | + + + | Marital Status | Single | + + + | Yarsanism Affiliation | Unknown | + + + [...] Team Providers + +------+ + | Care Beehive Kiln Charcoal Burner Name | Role | Phone | + +------+ + | Karson Williamson MD | PCP | | + +------+ + Allergies + + + + + + | Active Allergy | Reactions | Severity | Noted | Comments | | | | | Date | | + + + + + + | Amoxicillin | Rash, Other (See | High | 12/17/19 | Throat closes | | | Comments) | | 17 | | + + + + + + | Codeine | Hives, Rash | Medium | 12/17/19 | | | | | | 17 | | + + + + + + | Penicillins | Rash, Other (See | High | 12/17/19 | Throat closes | | | Comments) | | 17 | | + + + + + + Medications + + + +---------+------+------+-------+ | Medication | Sig | Dispensed | Refills | Star | End | Statu | | | | | | t | Date | s | | | | | | Date | | | + + + +---------+------+------+-------+ | PARoxetine (PAXIL) | Take 50 mg by mouth | | 0 | | | Activ | | 20 mg tablet | every morning. | | | | | e | + + + +---------+------+------+-------+ | ondansetron | Take two tablets PO | 10 | 1 | 08/0 | | Activ | | (ZOFRAN) 4 mg tablet | 45 minutes before | tablet | | 8/20 | | e | | | each half of prep; | | | 17 | | | | | Take remaining every | | | | | | | | 8 hours PO PRN. | | | | | | + + + +---------+------+------+-------+ | SUMAtriptan | take 1 tablet by | | 0 | 07/2 | | Activ | | (IMITREX) 50 mg | mouth AT ONSET OF | | | 6/20 | | e | | tablet | migraines CAN TAKE | | | 17 | | | | | SECOND DOSE... | | | | | | | | (REFER TO | | | | | | | | PRESCRIPTION NOTES). | | | | | | + + + +---------+------+------+-------+ Active Problems + + + | Problem | Noted Date | + + + | Smoker - Daily | 03/06/2017 | + + + | GERD (gastroesophageal reflux disease) | 03/06/2017 | + + + | H/O section | 03/06/2017 | + + + | Depression | 03/06/2017 | + + + | Abdominal pain, generalized | 01/01/2017 | + + + | Hematemesis with nausea | 01/01/2017 | + + + | Rectal bleeding | 01/01/2017 | + + + | Ulcerative colitis with complication | 01/01/2017 | + + + | Class III, BMI 40-49.9 (morbid obesity) | 01/01/2017 | + + + Family History + + +------+ + | Medical History | Relation | Name | Comments | + + +------+ + | Cancer | Father | | Laryngeal | + + +------+ + | Heart disease | Father | | | + + +------+ + | Cancer | Maternal | | Malignant breast neoplasm | | | Aunt | | | + + +------+ + | Cancer | Maternal | | Malignant breast neoplasm | | | Grandmoth | | | | | er | | | + + +------+ + + +------+--------+ + | Relation | Name | Status | Comments | + +------+--------+ + | Father | | | | + +------+--------+ + | Maternal Aunt | | | | + +------+--------+ + | Maternal Grandmother | | | | + +------+--------+ + Social History + + + +--------+------+ [...] | | | + +---+---+---+ + + | Tobacco Cessation: Ready to [...] on file | | + + + Last Filed Vital Signs + + + [...] | | + + + + + Plan of Treatment + + +-------+ + | Health Maintenance | Due Date | Last | Comments | | | | Done | | + + +-------+ + | Vaccine: | | | | | Dtap/Tdap/Td (1 - | 1 | | | | Tdap) | | | | + + +-------+ + | Cervical Cancer | | | | | Screening (Pap) | 3 | | | + + +-------+ + | Vaccine: Influenza | | | | | (#1) | 0 | | | + + +-------+ + Results Not on filefrom Last 3 Months Insurance + +--------+ +--------+ +---------+--------+ | Payer | Benefi | Subscriber | Effect | Phone | Address | Type | | | t Plan | ID | junior | | | | | | / | | Dates | | | | | | Group | | | | | | + +--------+ +--------+ +---------+--------+ | [employer]ET[employer] | [employer]ET[employer] | [id number] | 08/07/19 | | | PPO | | | PPO | | 17-Pre | | | | | | | | sent | | | | + +--------+ +--------+ +---------+--------+ | [employer] | [employer] | [id number] | | [phone] | | Medica | | MEDICAID HMO | HEALTH | | 017-Pr | 1 | | id | | | MDCD | | esent | | | | | | HMO [place] | | | | | | + +--------+ +--------+ +---------+--------+ + +--------+ +--------+ + + | Guarantor Name | Accoun | Relation to | Date | Phone | Billing Address | | | t Type | Patient | of | | | | | | | | | | + +--------+ +--------+ + + | Paula Breaux | Person | Self [birth year] | [address] | | | al/Fam | | 1989 | [phone] | [address] [place] | | | [place] | | | 3 (Home) | [id number] | | | | | | [phone] | | | | | | | 0 (Work) | | + +--------+ +--------+ + + Advance Directives + + + + + | Type | Date Recorded | Patient | Explanation | | | | Conductor Freight | | + + + + + | Power of | | | | | Commissions Specialist | | | | + + + + + | Advance | 03/07/2017 9:53 | | | | Directive | AM | | | + + + + +
--- OUTSIDE RECORDS SUMMARY | ~2020-04-24 | XMS | Encounter Summary ---
Demographics + + + | Address | [address] | | | [place] [address] | + + + | Home Phone | | + + + | Preferred Language | Unknown | + + + | Marital Status | Single | + + + | Congregational Affiliation | Unknown | + + + | Race | White | + + + | Ethnic Group | Not or | + + + Author + + + | Author | [facility] | | | and [place] | + + + | Organization | [facility] | | [...] Team Providers + +------+ + | Care Pipe Setter Name | Role | Phone | + +------+ + PCP | Unavailable | + +------+ + Encounter Details +--------+ + + + + | Date | Type | Department | Care Team | Description | +--------+ + + + + | 01/26/ | Hospital | [facility] | [facility] | | | 2009 | Encounter | [facility] | [address] | | | | | [address] | [facility] | | | | | [address] [place] | [place] [address] | | | | | [address] | [phone] | | | | | [phone] | | | +--------+ + + + [...]
--- OUTSIDE RECORDS SUMMARY | ~2020-04-24 | XMS | Encounter Summary ---
Demographics + + + | Address | [address] | | | [place] [address] | + + + | Home Phone | | + + + | Preferred Language | Unknown | + + + | Marital Status | Single | + + + | Congregation Affiliation | Unknown | + + + | Race | White | + + + | Ethnic Group | Not or | + + + Author + + + | Author | [facility] | | | and [place] | + + + | Organization | [facility] | | [...] Team Providers + +------+ + | Care Guitar Maker Name | Role | Phone | + +------+ + PCP | Unavailable | + +------+ + Encounter Details +--------+ + + + + | Date | Type | Department | Care Team | Description | +--------+ + + + + | 03/05/ | Hospital | [facility] | | | | 1993 | Encounter | [facility] | | | | | | CENTER [address] | | | | | | [place] | | | | | | [address] | | | | | | [phone] | | | +--------+ + + + [...]
--- OUTSIDE RECORDS SUMMARY | ~2020-04-24 | XMS | Encounter Summary ---
Demographics + + + | Address | [address] | | | [place] [address] | + + + | Home Phone | | + + + | Preferred Language | Unknown | + + + | Marital Status | Single | + + + | Voodoo Affiliation | Unknown | + + + [...] Team Providers + +------+ + | Care Skilled Trades Teacher Name | Role | Phone | + +------+ + PCP | Unavailable | + +------+ + Encounter Details +--------+ + + + + | Date | Type | Department | Care Team | Description | +--------+ + + + + | 12/17/ | Hospital | [facility] | | | | 2008 | Encounter | [facility] | | | | | | CENTER [address] | | | | | | [place] | | | | | | [address] | | | | | | [phone] | | | +--------+ + + + [...]
--- OUTSIDE RECORDS SUMMARY | ~2020-04-24 | XMS | Encounter Summary ---
Demographics + + + | Address | [address] | | | [place] [address] | + + + | Home Phone | | + + + | Preferred Language | Unknown | + + + | Marital Status | Single | + + + | Jew Affiliation | Unknown | + + + | Race | White | + + + | Ethnic Group | Not or | + + + Author + + + | Author | [facility] | | | and [place] | + + + | Organization | [facility] | | | [...] Team Providers + +------+ + | Care Edge Stripper Name | Role | Phone | + [...] | | | CENTER [address] | [facility] | | | | | [address] [place] | [place] [address] | | | | | [address] | [phone] | | | | | [phone] | | | +--------+ + + + [...]
--- OUTSIDE RECORDS SUMMARY | ~2020-04-24 | XMS | Encounter Summary ---
Demographics + + + | Address | [address] | | | [place] [address] | + + + | Home Phone | | + + + | Preferred Language | Unknown | + + + | Marital Status | Single | + + + | Samaritan Affiliation | Unknown | + + + | Race | White | + + + | Ethnic Group | Not or | + + + Author + + + | Author | [facility] | | | and [place] | + + + | Organization | [facility] | | | [...] Team Providers + +------+ + | Care Head Animal Keeper Name | Role | Phone | + [...] | | | | | generalized | SALES ENGINEERING MANAGER [address] | | | | | | Hematemesis | [address] | | | | | | with nausea | [address] | | | | | | Procedures | [place], | | | | | | [place] Gastric | [place] [address] | | | | | | Emptying | Phone: | | | | | | | [phone] | | | | | | | Fax: | | | | | | | [phone] | | +--------+--------+ + + + + [...] | | | Abdominal | Perla, | CLAEB | | | | | pain, | Marisol, | HOSPITAL | | | | | generalized | SALES ENGINEERING MANAGER [address] | [address] | | | | | Hematemesis | [address] | [address] | | | | | with nausea | [address] | [place], [place] | | | | | Procedures | [place], | [address] | | | | | [place]astric | [place] [address] | Phone: | | | | | Emptying | Phone: | [phone] | | | | | CHG GASTRIC | [phone] | Fax: | | | | | EMPTYING | Fax: | [phone] | | | | | IMAGING | [phone] | | | | | | STUDY [...] | | | Office Visit | [place] [address] | [address] | | | | | | Phone: | Phone: | | | | | | [phone] | [phone] | | | | | | Fax: | Fax: | | | | | | [phone] | [phone] | +--------+--------+ + + + + Encounter Details +--------+---------+ + + + | Date | Type | Department | Care Team | Description | +--------+---------+ + + + | 12/30/ | Office | [facility] [place] | [facility], | Abdominal pain, | | 2017 | Visit | GASTROENTEROLOGY | ARIELLE Damon [address] | generalized (Primary | | | | [address] | [address] | Dx); Hematemesis | | | | [address] [place], [place] | [place], [place] | with nausea; Rectal | | | | [address] | [address] | bleeding; Ulcerative | | | | [phone] | | colitis with | | | | | | complication, | | | | | | unspecified location | | | | | | (HCC); Morbid | | | | | | obesity with BMI of | | | | | | 40.0-44.9, adult | | | | | | ([facility]) | +--------+---------+ + + + Social History [...] with rest, fluids, or medicines. Your [facility] provider can give you specific instructions for treatment or self-care based on wha t is causing your pain. If you have vomiting or diarrhea,sip water or other clear fluids. When you are ready to e at solid foods again, start with small amounts of eugs-sr-raafax, low-fat foods. These inclu de apple sauce, [...] provider if you have: Pain for more jqqa0sjqk Bloating for more than 2days Diarrhea for more rhas7wpbo A fever of 100.4F (38.0C) or higher, [...] that increase stomach acid. Avoid aspirin and tawb-fqn-xaphbsu pain and fever medicines (NSAIDS or nonsteroidal anti -inflammatory drugs), if possible Lose extra weight. Finish eating at least 2 hours before you go to bed or lie down. Raise the head of your bed. Date Last Reviewed: 01/05/201619995592-0077 [employer] [place] [address], [place] [address]. All righ ts reserved. This information is not intended as a substitute for professional medical care. Always follow your healthcare professional's instructions. documented in this encounter Progress Notes Hermelinda Sampson RN - 12/30/2016 11:00 AM PDTScheduled for egd/colon with prop on 01/21 at [address] Farmer; GES study ordered, will call to schedule once approved, patient wants do ne at [facility]. Marisol connor ARNP - 12/30/2016 11:00 AM PDT PATIENT NAME: Paula Breaux : 1990: AGE: 26 y.o. REFERRED BY: Karson Williamson PRIMARY CARE: Karson Williamson MD Subjective: CHIEF COMPLAINT: Paula Breaux [...] 09/11/2016 diagnoses: Gastritis. unspecified left-sided colitis. ~ [facility] Dr. Briones DILATION AND CURETTAGE OF UTERUS [...] diagnoses: Gastritis. unspecified left-side d colitis. ~ [facility] Dr. Briones Final DIAGNOSIS: 09/11/2016 A.) MUCOSA, [...] 2 0 - 4 Final UA Specific [place], External 08/09/2016 1.029 1.005 - 1.03 Final [...] 0 0 - 4 Final UA Specific [place], External 08/02/2016 1.023 1.005 - 1.03 Final [...]
--- OUTSIDE RECORDS SUMMARY | ~2020-04-24 | XMS | Encounter Summary ---
Demographics + + + | Address | [address] | | | [place] [address] | + + + | Home Phone | | + + + | Preferred Language | Unknown | + + + | Marital Status | Single | + + + | Druze Affiliation | Unknown | + + + [...] Team Providers + +------+ + | Care Wrong Address Clerk Name | Role | Phone | + [...] | | | | [place] | [address] | | | | | [address] | [phone] | | | | | [phone] | | | +--------+---------+ + + + [...] the physician who did your procedure at [phone] if you have any questions or experience any of the following: ? Increasing abdominal pain, nausea, or vomiting. ? Chills and fever over 101F. ? New abdominal swelling or bloating. ? Signs of rectal bleeding (black or red stool). If you cannot get a hold of your physician, then call the [facility] [phone] . If necessary, report to the Emergency Department at [facility]. Quit smoking: If you smoke or have [...] Procedure: COLONOSCOPY; Surgeon: Johan Farmer MD; Location: [facility] DILATION AND CURETTAGE OF UTERUS TOOTH EXTRACTION UPPER GASTROINTESTINAL ENDOSCOPY 2008 UPPER GASTROINTESTINAL ENDOSCOPY N/A 01/21/2017 Procedure: EGD; Surgeon: Johan Farmer MD; Location: [facility] HOME MEDS: Scheduled [...] Electronically Signed by: Johan Farmer MD 03/06/2017 [facility] Portions of this chart may have been created with [employer] voice recognition software. Occasi onal wrong-word or [...] Exams Patient: Paula Breaux : 1990 Acct: [id number] Exam Date: Tuesday, March 07, 2017 Doctor: [...] If unable to reach your physician, call [facility] Emergency Department at [address] [...] location | | | | | | ([facility]) (K51.919), | | | | | | Morbid obesity with | | | | | | BMI of 40.0-44.9, | | | | | | adult ([facility]) (E66.01, | | | | [...] 03/07/2017 | [facility]ATION | | 10:04 AMMRN: [id number] #: [id number] of : | | | 1990Admit Type: AmbulatoryAge: 27Room: [facility] 02Gender: FemaleNote | | | Status: FinalizedAttending MD: Johan Farmer MDProcedure: | | | ColonoscopyIndications: Abdominal pain, Chronic | | | diarrhea, HematocheziaProviders: Johan Farmer MD, | | | Ofelia Garber RN, Nicole Blackman, | | | Middle School Band Teacher, Franck Martin MD (Anesthesia Staff)Referring MD: | [...] the anesthesiologist and the | | | retail service technician in the pre-procedure area in the [...] AMScope | | | Out: 10:34:43 AM [facility], [address] | | | [place] [address] | | | - High fiber diet. [...] |Scope Out: 10:34:43 AM | | | [facility], [address] [facility], [place], [place] | | | [address] | | + + -+ + +---------+ + + | Performing | Address | City/State/[facility] Cent[facility]ode | Phone Number | | Organization | [...] | 1.010, 1.015, | | | | [place], | | 1.020, 1.025 | | | | POC | | | | | + + + + + + | Lot Number | [id number] | | | | + + + [...] or | | | microscopic colitis. BES:ssm rehab:C3NR GROSS DESCRIPTION: Received in | | | formalin labeled "Paula Breaux" and "random colon bxs" on the | | | requisition are six simpson-randall tissue fragments measuring from 0.3-1 cm, | | | submitted, all in (A1). ka:CLR:ssm rehab PERFORMING LABORATORY: Tissue | | | processing and slide preparation were performed by [facility], | | | [address], [place] [address] (Job Forwarder: | | | David Rosas M.D. CLIA#: [id number]). Professional interpretation | | | was performed by [facility], [address], [facility] | | | [place] [address] (Job Forwarder: David Rosas M.D.; CLIA#: | | | [id number]). Diagnostician: Miguel Ulloa MD Pathologist | | [...]
--- OUTSIDE RECORDS SUMMARY | ~2020-04-24 | XMS | Encounter Summary ---
Demographics + + + | Address | [address] | | | [place] [address] | + + + | Home Phone | | + + + | Preferred Language | Unknown | + + + | Marital Status | Single | + + + | Spiritism Affiliation | Unknown | + + + | Race | White | + + + | Ethnic Group | Not or | + + + Author + + + | Author | [facility] | | | and [place] | + + + | Organization | [facility] | | [...] Team Providers + +------+ + | Care Web Site Project Manager Name | Role | Phone | [...] + | 02/07/ | Tele[facility] | [facility] | Johan Farmer MD | Procedure | | 2017 | | GASTROENTEROLOGY | [address] | | | | | [address] [facility] | [place], [place] | | | | | [address] [place], [place] | [address] | | | | | [address] | [phone] | | | | | [phone] | | | +--------+ + + + [...] that the prescription was sent to her [facility] pharmacy. Patient verbalized understanding. elephone Encounter - Hermelinda Sampson RN - 02/10/2017 2:18 PM PDTCalled patient and she is rescheduled for colon with prop on 03/[address] Farmer; poor prep on 01/21; advised extended prep with magnesium citrate; reviewed instructions over phone and hard copies mailed; patient confirmed she will have mixer driver; email sent to Dr. Fermin s asking if ok to prescribe more Zofran due to n/v with prep on 01/21, will call patient to i nform ok once I hear back from Dr. Farmer; patient agreed with plan and verbalized understand ing. elephone Encount niall - Silvia Granger - 02/07/2017 3:53 PM PDTPatient returned call, please call at [phone]. elephone Encounter - Hermelinda Sampson RN - [...]
--- OUTSIDE RECORDS SUMMARY | ~2020-04-24 | XMS | Encounter Summary ---
Demographics + + + | Address | [address] | | | [place] [address] | + + + | Home Phone | | + + + | Preferred Language | Unknown | + + + | Marital Status | Single | + + + | Orthodox Affiliation | Unknown | + + + | Race | White | + + + | Ethnic Group | Not or | + + + Author + + + | Author | [facility] | | | and [place] | + + + | Organization | [facility] | | | and [place] | + + + | Address | Unknown | + + + | Phone | Unavailable | + + + Support + + +---------+ + | Name | Relationship | Address | Phone | + + +---------+ + | Nahomi Willmas | ECON | Unknown | | + + +---------+ + | Nahomi Willams | ECON | Unknown | | + + +---------+ + Care Team Providers + +------+ + | Care Cleaner Industrial Name | Role | Phone | + +------+ + | Karson Williamson MD | PCP | | + +------+ + Encounter Details +--------+ + + + + | Date | Type | Department | Care Team | Description | +--------+ + + + + | 12/30/ | Episode | [facility] [place] | Hermelinda Sampson H, | | | 2016 | Changes | GASTROENTEROLOGY | RN | | | | | [address] | | | | | | [address] [place] | | | | | | [address] | | | | | | [phone] | | | +--------+ + + + [...]
--- OUTSIDE RECORDS SUMMARY | ~2020-04-24 | XMS | Encounter Summary ---
Demographics + + + | Address | [address] | | | [place] [address] | + + + | Home Phone | | + + + | Preferred Language | Unknown | + + + | Marital Status | Single | + + + | Buddhism Affiliation | Unknown | + + + | Race | White | + + + | Ethnic Group | Not or | + + + Author + + + | Author | [facility] | | | and [place] | + + + | Organization | [facility] | | [...] Team Providers + +------+ + | Care Cat Swamper Name | Role | Phone | + [...] | | | | | | | [place] | | | | | | | ESOPHAGOGAST | | | | | | | RODUODENOSCO | | | | | | | PY TRANSORAL | | | | | | | DIAGNOSTIC | | | | | | | FL EGD | | | | | | | TRANSORAL | | | | | | | BIOPSY | | | | | | | SINGLE/MULTI | | | | | | | PLE FL | | | | | | | COLONOSCOPY | | | | | | | FLX DX | | | | | | | W/COLLJ SPEC | | | | | | | WHEN PFRMD | | | | | | | [place] | | | | | | | COLONOSCOPY | | | | | | | W/BIOPSY | | | | | | | SINGLE/MULTI | | | | | | | PLE FL | | | | | | | COLSC FLX | | | | | | | W/RMVL OF | | | | | | | TUMOR POLYP | | | | | | | LESION SNARE | | | | | | | TQ FL | | | | | | | ANESTH,UGI | | | | | | | ENDOSCOPY | | | | | | | [place] | | | | | | | [...] + + + + | 01/21/ | Hospital | [facility] | Johan Farmer MD | Abdominal pain, | | 2017 | Encounter | [facility] | [address] | generalized; | | | | [address] | [place] | Hematemesis with | | | | [place] | [address] | nausea; Ulcerative | | | | [address] | [phone] | colitis with | | | | [phone] | | complication, | | | | | | unspecified location | | | | | | ([facility]); Rectal | | | | | | bleeding | +--------+ + + + + Social [...] + + + | Blood Pressure | 106/47 | 01/21/2017 1:15 PM | | | | | PDT | | + + + + + | Pulse | 77 | 01/21/2017 1:15 PM | | | | | PDT | | + + + + + | Temperature | 36.2 C (97.2 F) | 01/21/2017 1:09 PM | | | | | PDT | | + + + + + | Respiratory Rate | 18 | 01/21/2017 11:01 AM | | | | | PDT | | + + + + + | Oxygen Saturation | 98% | 01/21/2017 1:15 PM | | | | | PDT | | + + + + + | Inhaled Oxygen | - | - | | | Concentration | | | | + + + + + | Weight | 103 kg (227 lb) | 01/21/2017 11:01 AM | | | | | PDT | | + + + + + | Height | 157.5 cm (5' 2") | 01/21/2017 11:01 AM | | | | | PDT | | + + + + + | Body Mass Index | 41.52 | 01/21/2017 11:01 AM | | | | | PDT | | + + + + + documented in this encounter Discharge Instructions Instructions Jennifer Ramirez RN - 01/20/2017 Procedural Sedation (Adult) You have been given medicine by vein to make you sleep during your surgery. This may have i ncluded both a pain medicine and sleeping medicine. Most of the effects have worn off. But y ou may still have some drowsiness for the next 6 to 8 hours. Home care Follow these guidelines when you get home: For the next 8 hours, you should be watched by a responsible adult. This person should m rivera sure your condition is not getting worse. Don't take any medicine by mouth for pain or for sleep during the next 4 hours. These mi ght react with the medicines you were given in the hospital. This could cause a much stronge r response than usual. Don't drink any alcoholfor the next [address], operate dangerous machinery, or make important business or personal decisio nsduring the next 24 hours. Follow-up care Follow up with your healthcare provider if you are not alert and back to your usual level o f activity within 12 hours. When to seek medical advice Call your healthcare provider right away if any of these occur: Drowsiness gets worse Weakness or dizziness gets worse Repeated vomiting You cannot be awakened Date Last Reviewed: 04/23/201619990648-9776 [employer]. [address] [place] [address], [place] [address]. All righ ts reserved. This information is not intended as a substitute for professional medical care. Always follow your healthcare professional's instructions. Patient Discharge Instructions after an Endoscopy Procedure ? You may resume your regular [...] the physician who did your procedure at [phone] if you have any questions or experience any of the following: ? Increasing abdominal pain, nausea, or vomiting. ? Chills and fever over 101F. ? New abdominal swelling or bloating. ? Signs of rectal bleeding (black or red stool). If you cannot get a hold of your physician, then call the [facility] [phone] . If necessary, report to the Emergency Department at [facility]. Quit smoking: If you smoke or have smoked within the last year, quitting is the most import ant thing you can do to protect and improve your health. documented in this encounter Medications at Time of Discharge + + + +---------+--------+ + | Medication | Sig | Dispensed | Refills | Start | End Date | | | | | | Date | | + + + +---------+--------+ + | PARoxetine (PAXIL) | Take 50 mg by mouth | | 0 | | | | 20 mg tablet | every morning. | | | | | + + + +---------+--------+ + documented as of this encounter H&P Notes Johan Farmer MD - 01/21/2017 12:27 PM PDTPatient interviewed, history and physical, symp toms reviewed VS signs noted, no change from previous H&P or assessment and plan.Electronic ally signed by Johan Farmer MD at 01/21/2017 12:27 PM PDTPerlaMiguelMIAH irahetaP - 12/30 11:00 AM PDT PATIENT NAME: Paula Breaux [...] 09/11/2016 diagnoses: Gastritis. unspecified left-sided colitis. ~ ALYSIA Briones DILATION AND CURETTAGE OF UTERUS TOOTH [...] diagnoses: Gastritis. unspecified left-side d colitis. ~ [facility] Dr. Briones Final DIAGNOSIS: 09/11/2016 A.) MUCOSA, [...] growth after overnight incubation. Final Result 05/20/2016 11-16-16 50,000 cfu/mL mixed growth. Bacteria isolated probably repre sent contaminating jose. Final HCG SCREEN, URINE 08/09/2016 Negative Final UA Blood, External 08/09/2016 Negative Final UA Glucose, External 08/09/2016 Normal Final UA Ketones, External 08/09/2016 Negative Final UA Ph, External 08/09/2016 6 5 - 9 Final UA Proteins, External 08/09/2016 Negative Final UA RBC, External 08/09/2016 2 0 - 4 Final UA Specific Tamiment, External 08/09/2016 1.029 1.005 - 1.03 Final [...] 0 0 - 4 Final UA Specific Tamiment, External 08/02/2016 1.023 1.005 - 1.03 Final [...] regarding its content. documented in this encounter Miscellaneous Notes D-C Instructions Provation - Johan Farmer MD - 01/21/2017 12:23 PM PDTDischarge Instruct ions for Upper Endoscopy Patient: Paulara Breaux : 1990 Acct: [id number] Exam Date: Saturday, January 21, 2017 Doctor: Johan Farmer MD The chances of difficulty following this procedure are minimal. The following instruction s will assist you in your recovery. 1. Do Not eat or drink anything for 1 hour. Try sips of water first. If tolerated, resu me your regular diet or one recommended by your physician. 2. Do not drive, operate haley hawa, make critical decisions, or do activities that require coordination or balance for 24 hours. 3. You may experience a sore throat for 24 - 48 hours. You may use throat lozenges or ga rgle with warm salt water to relieve the discomfort. 4. Because air was put into your stom ach druing the procedure, you may experience some belching. 5. Do not use any medication containing aspirin for 10 days, unless otherwise directed by your physician. 6. Sometimes the medications given to you druing the exam can aggravate the veins. The c hemical irritation can cause inflammation or pain along the arm with redness, swelling and warmth. This does not mean there is an infection. You can treat the affected area by appl aimee warm, wet compresses (towels) 4 times a day for 20 minutes at a time until inflammatio n is resolved 7. Report to your doctor: Chills and/or fever over 100 Persistent vomiting or vomiting with blood/nasal regurgitation Severe abdominal pain, othe r than gas cramps Severe chest pain Black, tarry stools You may reach your physician at Work: . If unable to reach your physician, call [facility] Emergency Department at [address]. [phone] Your doctor recommends these additional instructions: You have a contact number available for emergencies. The signs and symptoms of potential delayed complications were discussed with you. You may return to normal activities tomorro w. Written discharge instructions were provided to you. Resume your previous diet. Continue your present medications. We are waiting for your pathology results. Follow an antireflux regimen. This includes: - Do not lie down for at least 3 to 4 hours after meals. - Raise the head of the bed 4 to 6 inches. - Decrease excess weight. - Avoid citrus juices and other acidic foods, alcohol, chocolate, mints, coffee and ot her caffeinated beverages, carbonated beverages, fatty and fried foods. - Avoid tight-fitting clothing. - Avoid cigarettes and other tobacco products. Return to your GI clinic as needed. The findings and recommendations have been discussed with you. These instructions have bee n explained to the patient and/or escort. A copy has been given to the patient/escort. Nurse Signatur e Patient Signature Escort Signatu re Date Johan Farmer MD 01/21/2017 12:53:46 PM This report has been signed electronically.Electronically signed by Johan Farmer MD at 12:54 PM PDTD-C Instructions Provation - Johan Farmer MD - 01/21/2017 12:18 PM P DTDischarge Instructions for Colonoscopy Exams Patient: Paula Breaux : 1990 Acct: [id number] Exam Date: Saturday, January 21, 2017 Doctor: Johan Farmer MD You have [...] If unable to reach your physician, call [facility] Emergency Department at [address]. [phone] Your doctor recommends these additional instructions: You have a contact number available for emergencies. The signs and symptoms of potential delayed complications were discussed with you. You may return to normal activities tomorro w. Written discharge instructions were provided to you. Eat a high fiber diet. Continue your present medications. Your physician has recommended a repeat colonoscopy in one month because the bowel prepara tion was poor. Return to your GI clinic as needed. The findings and recommendations have been discussed with you. These instructions have bee n explained to the patient and/or escort. A copy has been given to the patient/escort. Nurse Signdomo cano Patient Signature Escort Signatu re Date Johan Farmer MD 01/21/2017 1:00:21 PM This report has been signed electronically.Electronically signed by Johan Farmer MD at 1:00 PM PDTdocumented in this encounter Plan of Treatment Not on filedocumented as of this encounter Procedures + +--------+ + + + | Procedure Name | Priori | Date/Time | Associated Diagnosis | Comments | | | ty | | | | + +--------+ + + + | COLONOSCOPY | | 01/21/2017 | Abdominal pain, | | | | | 12:26 PM | generalized | | | | | PDT | (R10.84), | | | | | | Hematemesis with | | | | | | nausea (K92.0, | | | | | | R11.0), Rectal | | | | | | bleeding (K62.5), | | | | | | Ulcerative colitis | | | | | | with complication, | | | | | | unspecified location | | | | | | ([facility]) (K51.919), | | | | | | Morbid obesity with | | | | | | BMI of 40.0-44.9, | | | | | | adult (HCC) (E66.01, | | | | | | Z68.41); ETO H | | | | | | abuse (f10.10); | | | | | | Cannabis use | | | | | | (f12.90) | | + +--------+ + + + | EGD | | 01/21/2017 | Abdominal pain, | | | | | 12:26 PM | generalized | | | | | PDT | (R10.84), | | | | | | Hematemesis with | | | | | | nausea (K92.0, | | | | | | R11.0), Rectal | | | | | | bleeding (K62.5), | | | | | | Ulcerative colitis | | | | | | with complication, | | | | | | unspecified location | | | | | | ([facility]) (K51.919), | | | | | | Morbid obesity with | | | | | | BMI of 40.0-44.9, | | | | | | adult ([facility]) (E66.01, | | | | | | Z68.41); ETO H | | | | | | abuse (f10.10); | | | | | | Cannabis use | | | | | | (f12.90) | | + +--------+ + + + | EGD | Routin | 01/21/2017 | | Results for this | | | e | 12:23 PM | | procedure are in the | | | | PDT | | results section. | + +--------+ + + + | COLONOSCOPY | Routin | 01/21/2017 | | Results for this | | | e | 12:18 PM | | procedure are in the | | | | PDT | | results section. | + +--------+ + + + | POCT TEST, | Routin | 01/21/2017 | | Results for this | | URINE, QUAL | e | 11:26 AM | | procedure are in the | | | | PDT | | results section. | + +--------+ + + + | SURGICAL PATHOLOGY | Routin | 01/21/2017 | | Results for this | | EXAM | e | 12:00 AM | | procedure are in the | | | | PDT | | results section. | + +--------+ + + + documented in this encounter Results EGD (01/21/2017 12:23 PM PDT) + + | Specimen | + + | | + + + + -+ | Narrative | Performed At | + + -+ | | [facility] | | GastroenterologyPatient Name: Paula BreauxProcedjosr Date: 01/21/2017 | [facility] | | 12:23 PMMRN: [id number] #: [id number] of : | | | 1990Admit Type: AmbulatoryAge: 26Room: [facility] 02Gender: FemaleNote | | | Status: FinalizedAttending MD: Johan Farmer , [facility]rocedure: | | | Upper GI endoscopyIndications: Abdominal pain, | | | NauseaProviders: Johan Farmer MD, Ofelia Garber RN, | | | Sejal Diallo, Bridge Painter, [facility]. | | | MD Alta (Anesthesia Staff)Referring MD: Karson Kunz | | | MD Clay (Referring MD)Medicines: Monitored Anesthesia | | | CareComplications: No immediate complications.Procedure: | | | Pre-Anesthesia Assessment: - Prior to the procedure, a History | | | and Physical was performed, and patient medications and | | | allergies were reviewed. The patient is competent. The risks | | | and benefits of the procedure and the sedation options and | | | risks were discussed with the patient. All questions were | | | answered and informed consent was obtained. Patient identification and | | | proposed procedure were verified by the physician, the nurse, | | | the anesthesiologist and the instrument/control technician in the pre-procedure | | | area in the endoscopy suite. Mental Status Examination: alert | | | and oriented. Airway Examination: normal oropharyngeal airway | | | and neck mobility. Respiratory Examination: clear to | | | auscultation. CV Examination: normal. Prophylactic Antibiotics: | | | The patient does not require prophylactic antibiotics. Prior | | | Anticoagulants: The patient has taken no previous anticoagulant or | | | antiplatelet agents. ASA Grade Assessment: III - A patient with | | | severe systemic disease. After reviewing the risks and | | | benefits, the patient was deemed in satisfactory condition to | | | undergo the procedure. The anesthesia plan was to use monitored | | | anesthesia care (MAC). Immediately prior to administration of | | | medications, the patient was re-assessed for adequacy to | | | receive sedatives. The heart rate, respiratory rate, oxygen | | | saturations, blood pressure, adequacy of pulmonary ventilation, and | | | response to care were monitored throughout the procedure. The | | | physical status of the patient was re-assessed after the | | | procedure. After obtaining informed consent, the endoscope was | | | passed under direct vision. Throughout the procedure, the | | | patient's blood pressure, pulse, and oxygen saturations were | | | monitored continuously. The Endoscope was introduced through | | | the mouth, and advanced to the third part of duodenum. The | | | upper GI endoscopy was accomplished without difficulty. The | | | patient tolerated the procedure well.Findings: The examined | | | esophagus was normal. Diffuse mildly erythematous mucosa without | | | bleeding was found in the entire examined stomach. Biopsies | | | were taken with a cold forceps for histology. Verification of | | | patient identification for the specimen was done by the | | | physician and nurse using the patient's name and date. | | | Estimated blood loss was minimal. No other significant | | | abnormalities were identified in a careful examination of the | | | stomach. The cardia and gastric fundus were normal on | | | retroflexion. The examined duodenum was normal. Biopsies were | | | taken with a cold forceps for histology. Verification of | | | patient identification for the specimen was done by the | | | physician and nurse using the patient's name and date. | | | Estimated blood loss was minimal.Impression: - Normal esophagus. | | | - Erythematous mucosa in the stomach. Biopsied. - Normal | | | examined duodenum. Biopsied.Recommendation: - Patient has a | | | contact number available for emergencies. The signs and | | | symptoms of potential delayed complications were discussed with the | | | patient. Return to normal activities tomorrow. Written discharge | | | instructions were provided to the patient. - Resume | | | previous diet. - Continue present medications. - Await | | | pathology results. - Follow an antireflux regimen. - | | | Return to GI clinic PRN. - The findings and recommendations were | | | discussed with the patient.Johan Farmer MD01/21/2017 12:53:46 | | | PMThis report has been signed electronically.Number of Addenda: 0Note | | | Initiated On: 01/21/2017 12:23 PMTotal Procedure Duration: 0 hours 4 | | | minutes 11 seconds Scope In: 12:46:37 PMScope Out: 12:50:48 PM | | | [facility], [address] [place] [address] | | | [id number] | | | instructions were provided to the patient. | | | - Resume previous diet. | | | - Continue present medications. | | | - Await pathology results. | | | - Follow an antireflux regimen. | | | - Return to GI clinic PRN. | | | - The findings and recommendations were discussed with the patient. | | |Johan Farmer MD | | |01/21/2017 12:53:46 PM | | |This report has been signed electronically. | | |Number of Addenda: 0 | | |Note Initiated On: 01/21/2017 12:23 PM | | |Total Procedure Duration: 0 hours 4 minutes 11 seconds | | |Scope In: 12:46:37 PM | | |Scope Out: 12:50:48 PM | | | [facility], [address] [place] [address] | | | [phone] | | + + -+ + +---------+ + + | Performing | Address | City/State/Zipcode | Phone Number | | Organization | | | | + +---------+ + + | [facility] [place] | | | | + +---------+ + + COLONOSCOPY (01/21/2017 12:18 PM PDT) + + | Specimen | + + | | + + + + ---+ | Narrative | Performed At | + + ---+ | | [facility] | | GastroenterologyPatient Name: Paula Waterscedjosr Date: 01/21/2017 | [place] | | 12:18 PMMRN: [id number] #: [id number] of : | | | 1990Admit Type: AmbulatoryAge: 26Room: [facility] 02Gender: FemaleNote | | | Status: FinalizedAttending MD: Johan Farmer , [facility]rocedure: | | | ColonoscopyIndications: Abdominal pain, | | | HematocheziaProviders: Johan Farmer MD, Ofelia | | | Shirlene RN, Sejal Diallo, Bridge Painter, | | | Skyler Holm MD (Anesthesia Staff)Medicines: Monitored | | | Anesthesia CareComplications: No immediate | | | [...] the anesthesiologist and the | | | instrument/control technician in the pre-procedure area in the [...] | | was introduced through the anus with the intention of advancing | | | to the ileum. The scope was advanced to the sigmoid colon | | | before the procedure was aborted. Medications were given. The | | | colonoscopy was technically difficult and complex due to | | | inadequate bowel prep. The patient tolerated the procedure | | | well. The quality of the bowel preparation was poor.Findings: | | | The perianal and digital rectal examinations were normal. | | | A large amount of stool was found in the rectum, in the recto-sigmoid | | | colon and in the sigmoid colon, precluding visualization. | | | Non-bleeding internal hemorrhoids were found during retroflexion. The | | | hemorrhoids were small. No additional abnormalities were | | | found on retroflexion.Impression: - Preparation of the colon | | | was poor. - Stool in the rectum, in the recto-sigmoid colon and | | | in the sigmoid colon. - Non-bleeding internal | | | hemorrhoids. - No specimens collected.Recommendation: - | | | Patient has a contact number available for emergencies. The signs and | | | symptoms of potential delayed complications were discussed with | | | the patient. Return to normal activities tomorrow. Written | | | discharge instructions were provided to the patient. - | | | High fiber diet. - Continue present medications. - Repeat | | | colonoscopy in 1 month because the bowel preparation was poor. - | | | Return to GI clinic PRN. - The findings and recommendations | | | were discussed with the patient.Johan Farmer MD01/21/2017 1:00:21 | | | PMThis report has been signed electronically.Number of Addenda: 0Note | | | Initiated On: 01/21/2017 12:18 PMTotal Procedure Duration: 0 hours 1 | | | minute 56 seconds Scope In: 12:55:19 PMScope Out: 12:57:15 PM | | | [facility], [facility] [address] [place], [place] | | | [id number] | | | patient. Return to normal activities tomorrow. Written discharge | | | instructions were provided to the patient. | | | - High fiber diet. | | | - Continue present medications. | | | - Repeat colonoscopy in 1 month because the bowel preparation was poor. | | | - Return to GI clinic PRN. | | | - The findings and recommendations were discussed with the patient. | | |Johan Farmer MD | | |01/21/2017 1:00:21 PM | | |This report has been signed electronically. | | |Number of Addenda: 0 | | |Note Initiated On: 01/21/2017 12:18 PM | | |Total Procedure Duration: 0 hours 1 minute 56 seconds | | |Scope In: 12:55:19 PM | | |Scope Out: 12:57:15 PM | | | [facility], [facility] [address] [place], [place] | | | [address] | | + + ---+ + +---------+ + + | Performing | Address | City/State/[facility] Facilitycode | Phone Number | | Organization | | | | + +---------+ + + | [facility] | | | | + +---------+ + + POCT Test, Urine, QUAL (01/21/2017 11:26 AM PDT) + + + + + [...] | 1.010, 1.015, | | | | Tamiment, | | 1.020, 1.025 | | | | POC | | | | | + + + + + + | Lot Number | [id number] | | | | + + + + + + | Expiration | 2018-07-14 | | | | | Date | | | | | + + + + + + + + | Specimen | + + | Urine | + + Surgical Pathology Exam (01/21/2017 12:00 AM PDT) + + | Specimen | + + | | + + + + + | Narrative | Performed At | + + + | SPECIMEN(S): A GASTRIC BIOPSY SPECIMEN(S): B DUODENAL BIOPSY | [facility] | | SPECIMEN SOURCE: A. GASTRIC BIOPSY B. DUODENAL BIOPSY CLINICAL | [facility] | | HISTORY: R10.84 (generalized abdominal pain), K92.0 (hematemesis), | | | R11.0 (nausea), K62.5 (hemorrhage of anus and rectum), K51.919 | | | (ulcerative colitis, unspecified with unspecified complications), | | | E66.01 (morbid [severe] obesity due to excess calories) MICROSCOPIC | | | DESCRIPTION: Histologic sections of all submitted blocks are examined | | | by light microscopy. These findings, together with the gross | | | examination, support the pathologic diagnosis. FINAL PATHOLOGIC | | | DIAGNOSIS: A. Stomach, biopsy: - No significant histopathologic | | | alterations. B. Duodenum, biopsy: - No significant histopathology. | | | COMMENT: A. The sections through the gastric biopsies show fragments | | | of histologically unremarkable antral and oxyntic mucosa. There is no | | | evidence of acute or chronic inflammation. There is no evidence of H. | | | pylori, intestinal metaplasia, abnormal infiltrates or neoplasia. B. | | | The sections from the duodenal biopsy show portions of duodenal | | | mucosa with long fingerlike villi. There is no villous atrophy, crypt | | | hyperplasia or intraepithelial lymphocytosis making a diagnosis of | | | celiac disease unlikely. There is no evidence of peptic duodenitis, | | | microorganisms, abnormal infiltrates or neoplasia. [facility]:C2NR | | | GROSS DESCRIPTION: Received in two parts. A. Received in formalin | | | labeled "Paula Breaux" and "gastric" on the requisition are four | | | pink-randall tissue fragments measuring from 0.2-0.4 cm, submitted, all in | | | (A1). B. Received in formalin labeled "Paula Breaux" and "duodenum" | | | on the requisition are three pink-randall tissue fragments measuring from | | | 0.2-0.3 cm, submitted, all in (B1). ka:CLR:victor manuel PERFORMING | | | LABORATORY: Tissue processing and slide preparation were performed by | | | [facility], [address], [place] [address] | | | (Photoengraving Proofer Apprentice: David Rosas M.D. CLIA#: [id number]). | | | Professional interpretation was performed by [facility], [address], [place] [address] (Photoengraving Proofer Apprentice: David | | | Kari Rosas; CLIA#: [id number]). Diagnostician: Syed Aponte | | | King NABEEL Pathologist Electronically Signed 01/23/2017 | | + + + + +---------+ [...] Abdominal pain, generalized | + + | Hematemesis with nausea | + + | Ulcerative colitis with complication, unspecified location (HCC) | + + | Rectal bleeding Hemorrhage [...] ONCE PRN, Wheezing, | | | Starting 01/21/17 at 1327, | | | For 1 dose, Notify anesthesia if | | | patient is wheezing and does not | | | have a history of asthma or COPD | | | or current smoking., | | | Post-op/Phase II | | + +---+ | | | + +---+ | albuterol-ipratropium (DUONEB) | | | 2.5-0.5 mg/3 mL nebulizer | | | solution 3 mL 3 mL, | | | Nebulization, ONCE PRN, Wheezing, | | | Starting 01/21/17 at 1122, | | | For 1 dose, Pre-op | | + +---+ | | | + +---+ | albuterol-ipratropium (DUONEB) | | | 2.5-0.5 mg/3 mL nebulizer | | | solution 3 mL 3 mL, | | | Nebulization, ONCE PRN, Wheezing, | | | Shortness of Breath, Starting | | | e 01/21/17 at 1327, For 1 dose, | | | Post-op/Phase II | | [...] glucose < 50, | | | Starting e 01/21/17 at 1122, | | | Repeat in 15 min if blood glucose | | | remains < 70 mg/dL. Repeat | | | blood glucose in 30 min once | | | blood glucose > 70., Pre-op | | + +---+ | | | + +---+ + +---------+ +---+-------+---+ | lactated ringers (LR) infusion | New Bag | 01/22/20 | | 100 | | | at 100 mL/hr, Intravenous, | | 17 12:13 | | mL/hr | | | CONTINUOUS, Starting 01/21/17 | | PM PDT | | | | | at 1145, Pre-op | | | | | | + +---------+ +---+-------+---+ + +---+ | | | + +---+ | lactated ringers (LR) infusion | | | at 10-100 mL/hr, Intravenous, | | | CONTINUOUS, Starting 01/21/17 | | | at 1145, TKO. Use this instead of | | | NS unless dialysis patient., | | | Pre-op | | + +---+ | | | + +---+ | ondansetron (ZOFRAN ODT) | | | disintegrating tablet 4 mg 4 mg, | | | Oral, EVERY 6 HOURS PRN, Nausea, | | | Vomiting, Starting 01/21/17 | | | at 1327, First line agent, | | | Post-op/Phase II | | + +---+ | | | + +---+ | ondansetron (ZOFRAN) injection | | | 4 mg 4 mg, Intravenous, ONCE | | | PRN, Nausea, Starting e 01/21/17 | | | at 1327, For 1 dose, | | | Post-op/Phase II | | + +---+ | | | + +---+ | ondansetron (ZOFRAN) injection | | | 4 mg 4 mg, Intravenous, EVERY 6 | | | HOURS PRN, Nausea, Vomiting, | | | Starting 01/21/17 at 1327, | | | First line agent. Use PO option | | | unless NPO status or unable to | | | tolerate., Post-op/Phase II | | + +---+ | | | + +---+ | scopolamine (TRANSDERM-SCOP) 1 | | | mg/3 days 1 patch 1 patch, | | | Transdermal, PRN, adult patients | | | with history of PONV, Starting | | | e 01/21/17 at 1122, For 1 dose, | | | PRN for adult patients <65 yo | | | with history of PONV. Hold for | | | patients with glaucoma, dementia, | | | altered mental status, or | | | history of allergy to | | | Scopolamine. Apply to mastoid | | | process behind ear., Pre-op | | + +---+ | | | + +---+ | sodium chloride 0.9% (NS) | | | infusion at 10-100 mL/hr, | | | Intravenous, CONTINUOUS, Starting | | | 01/21/17 at 1145, TKO. Use | | | this instead of LR if patient is | | | on dialysis., Pre-op | | + +---+ | | | + +---+ documented in this encounter
--- OUTSIDE RECORDS SUMMARY | ~2020-04-24 | XMS | Encounter Summary ---
Demographics + + + | Address | [address] | | | [place] [address] | + + + | Home Phone | | + + + | Preferred Language | Unknown | + + + | Marital Status | Single | + + + | Restorationist Affiliation | Unknown | + + + | Race | White | + + + | Ethnic Group | Not or | + + + Author + + + | Author | [facility] | | | and [place] | + + + | Organization | [facility] | | | [...] Team Providers + +------+ + | Care Baseball Coach Name | Role | Phone | + +------+ + | Karson Williamson MD | PCP | | + +------+ + Encounter Details +--------+ + + + + | Date | Type | Department | Care Team | Description | +--------+ + + + + | 12/16/ | Abstract | [facility] [place] | [facility], | | | 2017 | | GASTROENTEROLOGY | ARIELLE Damon [address] | | | | | [address] [place] | [address] | | | | | [address] [place], [place] | [place], [place] | | | | | [address] | [address] | | | | | [phone] | | | +--------+ + + + [...] +--------+ + + + | EXTERNAL LAB: GAL | Routin | 05/14/2016 | | Results [...] - 1.03 | EXTERNAL | | | [place], | | | LAB | | | [...] - 1.03 | EXTERNAL | | | [place], | | | LAB | | | [...]
--- OUTSIDE RECORDS SUMMARY | ~2020-04-24 | XMS | Encounter Summary ---
Demographics + + + | Address | [address] | | | [place] [address] | + + + | Home Phone | | + + + | Preferred Language | Unknown | + + + | Marital Status | Single | + + + | Amish Affiliation | Unknown | + + + | Race | White | + + + | Ethnic Group | Not or | + + + Author + + + | Author | [facility] | | | and [place] | + + + | Organization | [facility] | | [...] Team Providers + +------+ + | Care Gang Ripsaw Operator Name | Role | Phone | [...] | | | | | | | NE | | | | | | | ESOPHAGOGAST | | | | | | | RODUODENOSCO | | | | | | | PY TRANSORAL | | | | | | | DIAGNOSTIC | | | | | | | NE EGD | | | | | | | TRANSORAL | | | | | | | BIOPSY | | | | | | | SINGLE/MULTI | | | | | | | PLE NE | | | | | | | COLONOSCOPY | | | | | | | FLX DX | | | | | | | W/COLLJ SPEC | | | | | | | WHEN PFRMD | | | | | | | NE | | | | | | | COLONOSCOPY | | | | | | | W/BIOPSY | | | | | | | SINGLE/MULTI | | | | | | | PLE NE | | | | | | | COLSC FLX | | | | | | | W/RMVL OF | | | | | | | TUMOR POLYP | | | | | | | LESION SNARE | | | | | | | TQ NE | | | | | | | ANESTH,UGI | | | | | | | ENDOSCOPY | | | | | | | NE | | | | | | | [...] | Anesthesia | [facility] | Skyler Holm | | | 2017 | Event | MED [facility] INTRA OP | MD Graham [address] | | | | | [address] | [address] [facility] | | | | | [place] | [place] [address] | | | | | [address] | [phone] | | | | | [phone] | | | +--------+ + + + [...] by | | eral | (dorsal); Wrist; [id number] | Lilian Becerra, | Jennifer Ramirez, | [...] EVALUATION Paula Breaux 26 y.o. female 1990 [id number] Procedure(s) EGD (N/A Mouth) COLONOSCOPY (N/A Rectum) [...] signed by Skyler Holm MD 01/21/2017 13:[address] [facility] nesthesia Preprocedure Evaluation - Skyler Holm MD - 2016 2:49 PM PDT ANESTHESIA PREANESTHESIA EVALUATION Paula Breaux 26 y.o. female 1990 [id number] Procedure(s): EGD (N/A Mouth) COLONOSCOPY (N/A Rectum) [...]
--- OUTSIDE RECORDS SUMMARY | ~2020-04-24 | XMS | Encounter Summary ---
Demographics + + + | Address | [address] | | | [place] [address] | + + + | Home Phone | | + + + | Preferred Language | Unknown | + + + | Marital Status | Single | + + + | Muslim Affiliation | Unknown | + + + | Race | White | + + + | Ethnic Group | Not or | + + + Author + + + | Author | [facility] | | | and [place] | + + + | Organization | [facility] | | [...] Team Providers + +------+ + | Care Market Analysis Director Name | Role | Phone | + [...] | | | | | | | [place] | | | | | | | COLONOSCOPY | | | | | | | FLX DX | | | | | | | W/COLLJ SPEC | | | | | | | WHEN PFRMD | | | | | | | CA | | | | | | | COLONOSCOPY | | | | | | | W/BIOPSY | | | | | | | SINGLE/MULTI | | | | | | | PLE CA | | | | | | | COLSC FLX | | | | | | | W/RMVL OF | | | | | | | TUMOR POLYP | | | | | | | LESION SNARE | | | | | | | TQ CA | | | | | | | [...] + + | 03/07/ | Hospital | [facility] | Johan Farmer MD | Abdominal pain, | | 2017 | Encounter | MED CTR MP INTRA OP | [address] | generalized; Rectal | | | | [address] | [place] | bleeding | | | | [place], [place] | [address] | | | | | [address] | [phone] | | | | | [phone] | | | +--------+ + + + [...] the physician who did your procedure at [phone] if you have any questions or experience any of the following: ? Increasing abdominal pain, nausea, or vomiting. ? Chills and fever over 101F. ? New abdominal swelling or bloating. ? Signs of rectal bleeding (black or red stool). If you cannot get a hold of your physician, then call the [facility] [phone] . If necessary, report to the Emergency Department at [facility]. Quit smoking: If you smoke or [...] Procedure: COLONOSCOPY; Surgeon: Johan Farmer MD; Location: [facility] MEDICAL PROCEDURE UNIT DILATION AND CURETTAGE OF UTERUS TOOTH EXTRACTION UPPER GASTROINTESTINAL ENDOSCOPY 2008 UPPER GASTROINTESTINAL ENDOSCOPY N/A 01/21/2017 Procedure: EGD; Surgeon: Johan Farmer MD; Location: [facility] MEDICAL PROCEDURE UNIT HOME MEDS: Scheduled Meds: [...] Electronically Signed by: Johan Farmer MD 03/06/2017 [facility] Portions of this chart may have been created with [employer] voice recognition software. Occasi onal wrong-word or [...] Exams Patient: Paula Breaux : 1990 Acct: [id number] Exam Date: Tuesday, March 07, 2017 Doctor: [...] If unable to reach your physician, call [facility] Emergency Department at Ext. 2500 Your doctor [...] location | | | | | | ([facility]) (K51.919), | | | | | | Morbid obesity with | | | | | | BMI of 40.0-44.9, | | | | | | adult ([facility]) (E66.01, | | | | | | [...] 03/07/2017 | [facility]OVATION | | 10:04 AMMRN: [id number] #: [id number] of : | | | 1990Admit Type: AmbulatoryAge: 27Room: [facility] 02Gender: FemaleNote | | | Status: FinalizedAttending MD: Johan Farmer MDProcedure: | | | ColonoscopyIndications: Abdominal pain, Chronic | | | diarrhea, HematocheziaProviders: Johan Farmer MD, | | | Ofelia Garber RN, Nicole Blackman, | | | Fire Alarm Inspector, Franck Martin MD (Anesthesia Staff)Referring MD: | [...] the anesthesiologist and the | | | denture laboratory technician in the pre-procedure area in the [...] AMScope | | | Out: 10:34:43 AM [facility], [address] | | | [place] [address] | | | - High fiber diet. [...] |Scope Out: 10:34:43 AM | | | [facility], [address] [place], [place] | | | [address] | | + + -+ + +---------+ + + | Performing | Address | City/State/[facility]code | Phone Number | | Organization [...] | 1.010, 1.015, | | | | [facility], | | 1.020, 1.025 | | | | POC | | | | | + + + + + + | Lot Number | [id number] | | | | + + + [...] RANDOM COLON BIOPSY SPECIMEN SOURCE: Lady MONTIEL [facility] PATHOLOGY | | COLON BIOPSY CLINICAL HISTORY: [...] chronic, or | | | microscopic colitis. BES:[facility]:C3NR GROSS DESCRIPTION: Received in | | | formalin labeled "Paula Breaux" and "random colon bxs" on the | | | requisition are six simpson-randall tissue fragments measuring from 0.3-1 cm, | | | submitted, all in (A1). ka:CLR:[facility] PERFORMING LABORATORY: Tissue | | | processing and slide preparation were performed by [facility], | | | [address], [place] [address] (Sports Editor: | | | David Rosas M.D. CLIA#: [id number]). Professional interpretation | | | was performed by [facility], [address] [facility], [address] | | | [place] [address] (Sports Editor: David Rosas M.D.; CLIA#: | | | [id number]). Diagnostician: Miguel Ulloa MD Pathologist | | [...]
--- OUTSIDE RECORDS SUMMARY | ~2020-04-24 | XMS | Encounter Summary ---
Demographics + + + | Address | [address] | | | [place] [address] | + + + | Home Phone [...] Author + + + | Author | [facility] | | | and [place] | + + + | Organization | [facility] | | [...] Team Providers + +------+ + | Care Material Control Specialist Name | Role | Phone | + +------+ + PCP | Unavailable | + +------+ + Encounter Details +--------+ + + + + | Date | Type | Department | Care Team | Description | +--------+ + + + + | 12/17/ | Hospital | [facility] | | | | 2008 | Encounter | MED CTR EMERGENCY | | | | | | CENTER [address] | | | | | | [place] | | | | | | [address] | | | | | | [phone] | | | +--------+ + + + [...]
--- OUTSIDE RECORDS SUMMARY | ~2020-04-24 | XMS | Encounter Summary ---
Demographics + + + | Address | [address] | | | [place] [address] | + + + | Home Phone | | + + + | Preferred Language | Unknown | + + + | Marital Status | Single | + + + | Scientologist Affiliation | Unknown | + + + [...] Team Providers + +------+ + | Care Irish Moss Gatherer Name | Role | Phone | + +------+ + | Karson Williamson MD | PCP | | + +------+ + Encounter Details +--------+ + + + + | Date | Type | Department | Care Team | Description | +--------+ + + + + | 12/30/ | Episode | [facility] [place] | Heron [facility] | | | 2016 | Changes | GASTROENTEROLOGY | L, RN | | | | | [address] [place] | | | | | | [address] [place], [place] | | | | | | [address] | | | | | | [phone] | | | +--------+ + + + [...]
--- OUTSIDE RECORDS SUMMARY | ~2020-04-24 | XMS | Clinical Summary ---
Demographics + + + | Address | [address] | | | [place] [address] | + + + | Home Phone | | + + + | Preferred Language | Unknown | + + + | Marital Status | Single | + + + | Hoahaoism Affiliation | Unknown | + + + | Race | White | + + + | Ethnic Group | Not or | + + + Author + + + | Author | [facility] | | | and [place] | + + + | Organization | [facility] | | | and [...] Team Providers + +------+ + | Care Director Private Music Therapy Agency Name | Role | Phone | + [...] +--------+ +---------+--------+ | [employer]ET[employer] | AETNA | [id number] | 08/07/19 | | | PPO | | | PPO | | 17-Pre | | | | | | | | sent | | | | + +--------+ +--------+ +---------+--------+ | [employer] | [employer] | [id number] | | [phone] | | Medica | | MEDICAID HMO [...] [place] | | | 3 (Home) | [phone] | | | | | | [phone] | | | | | | | 0 (Work) | | + +--------+ +--------+ + + Advance Directives + + + + + | Type | Date Recorded | Patient | Explanation | | | | Perioperative Manager | | + + + + + | Power of | | | | | Dairy Cattle Farmer | | | | + + + + + | Advance | 03/07/2017 9:53 | | | | Directive | AM | | | + + + + +
--- OUTSIDE RECORDS SUMMARY | ~2020-04-24 | XMS | Encounter Summary ---
Demographics + + + | Address | [address] | | | [place] [address] | + + + | Home Phone | | + + + | Preferred Language | Unknown | + + + | Marital Status | Single | + + + | Hindu Affiliation | Unknown | + + + [...] Team Providers + +------+ + | Care Wheel Cutter Name | Role | Phone | + [...] | | | | | | | [place] | | | | | | | ESOPHAGOGAST | | | | | | | RODUODENOSCO | | | | | | | PY TRANSORAL | | | | | | | DIAGNOSTIC | | | | | | | [place] EGD | | | | | | | TRANSORAL | | | | | | | BIOPSY | | | | | | | SINGLE/MULTI | | | | | | | PLE [place] | | | | | | | COLONOSCOPY | | | | | | | FLX DX | | | | | | | W/COLLJ SPEC | | | | | | | WHEN PFRMD | | | | | | | [place] | | | | | | | COLONOSCOPY | | | | | | | W/BIOPSY | | | | | | | SINGLE/MULTI | | | | | | | PLE [place] | | | | | | | COLSC FLX | | | | | | | W/RMVL OF | | | | | | | TUMOR POLYP | | | | | | | LESION SNARE | | | | | | | TQ [place] | | | | | | | ANESTH,UGI | | | | | | | ENDOSCOPY | | | | | | | [place] | | | | | | | [...] Description | +--------+---------+ + + + | 01/21/ | Surgery | [facility] | Johan Farmer MD | EGD | | 2017 | | MED CTR MP INTRA OP | [address] | | | | | [address] | [place] | | | | | [place] | [address] | | | | | [address] | [phone] | | | | | [phone] | | | +--------+---------+ + + + [...] + + + | Blood Pressure | 129/85 | 01/21/2017 11:01 AM | | | | | PDT | | + + + + + | Pulse | 96 | 01/21/2017 11:01 AM | | | | | PDT | | + + + + + | Temperature | 36.6 C (97.9 F) | 01/21/2017 11:01 AM | | | | | PDT | | + + + + + | Respiratory Rate | 18 | 01/21/2017 11:01 AM | | | | | PDT | | + + + + + | Oxygen Saturation | 100% | 01/21/2017 11:01 AM | | | [...] You cannot be awakened Date Last Reviewed: 04/23/[id number] [employer] [place] [address]. All righ ts reserved. This information is [...] the physician who did your procedure at [phone] if you have any questions or experience any of the following: ? Increasing abdominal pain, nausea, or vomiting. ? Chills and fever over 101F. ? New abdominal swelling or bloating. ? Signs of rectal bleeding (black or red stool). If you cannot get a hold of your physician, then call the [facility] [phone] . If necessary, report to the Emergency Department at [facility]. Quit smoking: If you smoke or have [...] Johan Farmer MD at 01/21/2017 12:27 PM PDTMarisol Duncan FIELD CROP FARM WORKER - 12/30 11:00 AM PDT PATIENT NAME: [...] 09/11/2016 diagnoses: Gastritis. unspecified left-sided colitis. ~ [facility] Dr. Briones DILATION AND CURETTAGE OF UTERUS TOOTH EXTRACTION UPPER GASTROINTESTINAL ENDOSCOPY 2008 Family History Problem Relation Age of Onset [...] 2 0 - 4 Final UA Specific [place], External 08/09/2016 1.029 1.005 - 1.03 Final [...] 0 0 - 4 Final UA Specific [place], External 08/02/2016 1.023 1.005 - 1.03 Final [...] PDTDischarge Instruct ions for Upper Endoscopy Patient: Paula Breaux : 1990 Acct: [id number] Exam Date: Saturday, January 21, 2017 Doctor: [...] If unable to reach your physician, call [facility] Emergency Department at [address]. [address] Your [...] Exams Patient: Paula Breaux : 1990 Acct: [id number] Exam Date: Saturday, January 21, 2017 Doctor: [...] If unable to reach your physician, call [facility] Emergency Department at [address] Your [...] location | | | | | | ([facility]) (K51.919), | | | | | | Morbid obesity with | | | | | | BMI of 40.0-44.9, | | | | | | adult ([facility]) (E66.01, | | | | | | [...] location | | | | | | ([facility]) (K51.919), | | | | | | Morbid obesity with | | | | | | BMI of 40.0-44.9, | | | | | | adult ([facility]) (E66.01, | | | | | | [...] | | GastroenterologyPatient Name: Paula Sanchez Date: 01/21/2017 | [place]OVATION | | 12:23 PMMRN: [id number] #: [id number] of : | | | 1990Admit Type: AmbulatoryAge: 26Room: [facility] 02Gender: FemaleNote | | | Status: FinalizedAttending MD: Johan Farmer , [facility]cedure: | | | Upper GI endoscopyIndications: Abdominal pain, | | | NauseaProviders: Johan Farmer MD, Ofelia Garber RN, | | | Sejal Diallo, Network Contractor, Skyler . | | | MD Alta (Anesthesia Staff)Referring [...] | | | the anesthesiologist and the food safety technician in the pre-procedure | | | [...] PMScope Out: 12:50:48 PM | | | [facility], [address] [place] [address] | | | [address] | | | instructions were provided to [...] |Scope Out: 12:50:48 PM | | | [facility], [address] [place] [address] | | | [address] | | + + -+ + +---------+ [...] | [facility] | | GastroenterologyPatient Name: Paula Snachez Date: 01/21/2017 | PROVATION | | 12:18 PMMRN: [id number] #: [id number] of : | | | 1990Admit Type: AmbulatoryAge: 26Room: [facility] 02Gender: FemaleNote | | | Status: FinalizedAttending MD: Johan Farmer MDProcedure: | | | ColonoscopyIndications: Abdominal pain, | | | HematocheziaProviders: Johan Farmer MD, Ofelia | | | Shirlene RN, Sejal Diallo, Network Contractor, | | | Skyler Holm MD (Anesthesia [...] the anesthesiologist and the | | | food safety technician in the pre-procedure area in the [...] PMScope Out: 12:57:15 PM | | | [facility], [address] [place], [place] | | | [address] | | | patient. Return to normal [...] |Scope Out: 12:57:15 PM | | | [facility], [facility] [address] [place], [place] | | | [address] | | + + ---+ + +---------+ + + | Performing | Address | City/State/[facility] Centercode | Phone Number | | [...] | 1.010, 1.015, | | | | [place], | | 1.020, 1.025 | | | | POC | | | | | + + + + + + | Lot Number | [id number] | | | | + + + [...] | | microorganisms, abnormal infiltrates or neoplasia. TWK:[facility]:C2NR | | | GROSS DESCRIPTION: Received in [...] | 0.2-0.3 cm, submitted, all in (B1). ka:HATTIE:[facility] PERFORMING | | | LABORATORY: Tissue processing and slide preparation were performed by | | | [facility], [address] [place] [address], [address], [place] [address] | | | (Gear Finisher: David Rosas M.D. CLIA#: [id number]). | | | Professional interpretation was performed by [facility], [address] | [address] [facility], [address], [place] [address] (Gear Finisher: David | | | Kari Rosas; CLIA#: [id number]). Diagnostician: Syed Aponte | | | King NABEEL Pathologist Electronically Signed 01/23/2017 | | + + + + +---------+ + + | Performing | Address | City/State/[facility] Centercode | Phone Number | | [...] Shortness of Breath, Starting | | | 01/21/17 at 1327, For 1 dose, | [...] glucose < 50, | | | Starting 01/21/17 at 1122, | | | Repeat [...] mL/hr, Intravenous, | | | CONTINUOUS, Starting Fri01/21/17 | | | at 1145, TKO. Use [...] ONCE | | | PRN, Nausea, Starting 01/21/17 | | | at 1327, For [...] history of PONV, Starting | | | 01/21/17 at 1122, For 1 dose, | [...]
--- OUTSIDE RECORDS SUMMARY | ~2020-04-24 | XMS | Encounter Summary ---
Demographics + + + | Address | [address] | | | [place] [address] | + + + | Home Phone | | + + + | Preferred Language | Unknown | + + + | Marital Status | Single | + + + | Lutheran Affiliation | Unknown | + + + | Race | White | + + + | Ethnic Group | Not or | + + + Author + + + | Author | [facility] | | | and [place] | + + + | Organization | [facility] | | | [...] Team Providers + +------+ + | Care Velvet Weaver Name | Role | Phone | + [...] [place] | | | | | | [address] | | | | | | [phone] | | | +--------+ + + + [...]
--- OUTSIDE RECORDS SUMMARY | ~2020-04-24 | XMS | Encounter Summary ---
Demographics + + + | Address | [address] | | | [place] [address] | + + + | Home Phone | | + + + | Preferred Language | Unknown | + + + | Marital Status | Single | + + + | Quaker Affiliation | Unknown | + + + | Race | White | + + + | Ethnic Group | Not or | + + + Author + + + | Author | [facility] | | | and [place] | + + + | Organization | [facility] | | [...] Team Providers + +------+ + | Care Acoustic Engineer Name | Role | Phone | + [...] | | | | | | | CO | | | | | | | ESOPHAGOGAST | | | | | | | RODUODENOSCO | | | | | | | PY TRANSORAL | | | | | | | DIAGNOSTIC | | | | | | | CO EGD | | | | | | | TRANSORAL | | | | | | | BIOPSY | | | | | | | SINGLE/MULTI | | | | | | | PLE CO | | | | | | | COLONOSCOPY | | | | | | | FLX DX | | | | | | | W/COLLJ SPEC | | | | | | | WHEN PFRMD | | | | | | | CO | | | | | | | COLONOSCOPY | | | | | | | W/BIOPSY | | | | | | | SINGLE/MULTI | | | | | | | PLE CO | | | | | | | COLSC FLX | | | | | | | W/RMVL OF | | | | | | | TUMOR POLYP | | | | | | | LESION SNARE | | | | | | | TQ CO | | | | | | | ANESTH,UGI | | | | | | | ENDOSCOPY | | | | | | | CO | | | | | | | [...] | | | | | [address] | [place] | | | | | [place] | [address] | | | | | [address] | [phone] | | | | | [phone] | | | +--------+---------+ + + + [...] You cannot be awakened Date Last Reviewed: 04/23/201619992975-5833 [employer]. [address] [place] [address]. All righ ts reserved. This information is [...] the physician who did your procedure at [phone] if you have any questions or experience any of the following: ? Increasing abdominal pain, nausea, or vomiting. ? Chills and fever over 101F. ? New abdominal swelling or bloating. ? Signs of rectal bleeding (black or red stool). If you cannot get a hold of your physician, then call the [facility] [phone] . If necessary, report to the Emergency Department at [facility]. Quit smoking: If you smoke or [...] MD at 01/21/2017 12:27 PM PDTMarisol Duncan STEEL BOX TOE INSERTER - 12/30 11:00 AM PDT PATIENT NAME: [...] 09/11/2016 diagnoses: Gastritis. unspecified left-sided colitis. ~ [facility] Dr. Briones DILATION AND CURETTAGE OF UTERUS [...] 2 0 - 4 Final UA Specific [place], External 08/09/2016 1.029 1.005 - 1.03 Final [...] 0 0 - 4 Final UA Specific [place], External 08/02/2016 1.023 1.005 - 1.03 Final [...] Endoscopy Patient: Paula Breaux : 1990 Acct: [id number] Exam Date: Saturday, January 21, 2017 Doctor: [...] If unable to reach your physician, call [facility] Emergency Department at [address]. [address] Your [...] Exams Patient: Paula Breaux : 1990 Acct: [id number] Exam Date: Saturday, January 21, 2017 Doctor: [...] If unable to reach your physician, call [facility] Emergency Department at [address]. [address] Your [...] | | | | | | ([facility]) (K51.919), | | | | | | Morbid obesity with | | | | | | BMI of 40.0-44.9, | | | | | | adult ([facility]) (E66.01, | | | | | [...] | | | | | | ([facility]) (K51.919), | | | | | | Morbid obesity with | | | | | | BMI of 40.0-44.9, | | | | | | adult ([facility]) (E66.01, | | | | | [...] 01/21/2017 | PROVATION | | 12:23 PMMRN: [id number] #: [id number] of : | | | 1990Admit Type: AmbulatoryAge: 26Room: [facility] 02Gender: FemaleNote | | | Status: FinalizedAttending MD: Johan Farmer , [facility]OURrocedure: | | | Upper GI endoscopyIndications: Abdominal pain, | | | NauseaProviders: Johan Farmer MD, Ofelia Garber RN, | | | Sejal Diallo, Applied Computer Science Professor, Skyler . | | | MD Alta [...] | | | the anesthesiologist and the biomedical technician in the pre-procedure | | | [...] PMScope Out: 12:50:48 PM | | | [facility], [address] [place] [address] | | | [phone] | | | instructions were provided to [...] |Scope Out: 12:50:48 PM | | | [facility], [address] [place] [address] | | | [address] | | + + -+ + +---------+ [...] Sanchez Date: 01/21/2017 | PROVATION | | 12:18 PMMRN: [id number] #: [id number] of : | | | 1990Admit Type: AmbulatoryAge: 26Room: [facility] 02Gender: FemaleNote | | | Status: FinalizedAttending MD: Johan Farmer MDProcedure: | | | ColonoscopyIndications: Abdominal pain, | | | HematocheziaProviders: Johan Farmer MD, Ofelia | | | Shirlene RN, Sjeal Diallo, Applied Computer Science Professor, | | | Skyler Holm MD (Anesthesia [...] the anesthesiologist and the | | | biomedical technician in the pre-procedure area in the [...] PMScope Out: 12:57:15 PM | | | [facility], [address] [place], [place] | | | [address] | | | patient. Return to normal [...] |Scope Out: 12:57:15 PM | | | [facility], [facility] [address] [place], [place] | | | [address] | | + + ---+ + +---------+ + + | Performing | Address | City/State/[facility] Cent[facility]ode | Phone Number | | Organization [...] | 1.010, 1.015, | | | | [place], | | 1.020, 1.025 | | | | POC | | | | | + + + + + + | Lot Number | [id number] | | | | + + + [...] | | microorganisms, abnormal infiltrates or neoplasia. TWK:[facility]:C2NR | | | GROSS DESCRIPTION: Received in [...] | 0.2-0.3 cm, submitted, all in (B1). ka:HATTIE:[facility] PERFORMING | | | LABORATORY: Tissue processing and slide preparation were performed by | | | [facility], [address] [place] [address], [address], [place] [address] | | | (Insurance Claims Specialist: David Rosas M.D. CLIA#: [id number]). | | | Professional interpretation was performed by [facility], [address] | | [address] [facility], [address], [place] [address] (Insurance Claims Specialist: David | | | Kari Rosas; CLIA#: [id number]). Diagnostician: Syed Aponte | | | King NABEEL Pathologist Electronically Signed 01/23/2017 | | + + + + +---------+ + + | Performing | Address | City/State/[facility] Centercode | Phone Number | | Organization [...]
--- OUTSIDE RECORDS SUMMARY | ~2020-04-24 | XMS | Encounter Summary ---
Demographics + + + | Address | [address] | | | [place] [address] | + + + | Home Phone | | + + + | Preferred Language | Unknown | + + + | Marital Status | Single | + + + | Evangelical Affiliation | Unknown | + + + | Race | White | + + + | Ethnic Group | Not or | + + + Author + + + | Author | [facility] | | | and [place] | + + + | Organization | [facility] | | | [...] Team Providers + +------+ + | Care Informatica Developer Name | Role | Phone | + [...] | | | | | | [address], [place] | | | | | | [address] | | | | | | [phone] | | | +--------+ + + + [...]
--- OUTSIDE RECORDS SUMMARY | ~2020-04-24 | XMS | Encounter Summary ---
Demographics + + + | Address | [address] | | | [place] [address] | + + + | Home Phone [...] Author + + + | Author | [facility] | | | and [place] | + + + | Organization | [facility] | | | [...] Team Providers + +------+ + | Care Administrative Job Titles Name | Role | Phone | + [...] | | | | | | [address] [place], [place] | | | | | | [address] | | | | | | [phone] | | | +--------+ + + + [...]
--- OUTSIDE RECORDS SUMMARY | ~2020-04-24 | XMS | Encounter Summary ---
Demographics + + + | Address | [address] | | | [place] [address] | + + + | Home Phone | | + + + | Preferred Language | Unknown | + + + | Marital Status | Single | + + + | Anabaptism Affiliation | Unknown | + + + [...] Team Providers + +------+ + | Care Shelter Monitor Name | Role | Phone | + [...] + + | 01/21/ | Hospital | [facility] | Johan Farmer MD | Abdominal pain, | | 2017 | Encounter | [facility] | [address] | generalized; | | | | [address] | [place] | Hematemesis with | | | | [place] | [address] | nausea; Ulcerative | | | | [address] | [phone] | colitis with | | | | [phone] | | complication, | | | | | | unspecified location | | | | | | ([facility]); Rectal | | | | | | [...] You cannot be awakened Date Last Reviewed: 04/23/201619998138-3824 [employer]. [address] [place] [address], [place] [address]. All righ ts reserved. This information is [...] the physician who did your procedure at [phone] if you have any questions or experience any of the following: ? Increasing abdominal pain, nausea, or vomiting. ? Chills and fever over 101F. ? New abdominal swelling or bloating. ? Signs of rectal bleeding (black or red stool). If you cannot get a hold of your physician, then call the [facility] [phone] . If necessary, report to the Emergency Department at [facility]. Quit smoking: If you smoke [...] 2 0 - 4 Final UA Specific [place], External 08/09/2016 1.029 1.005 - 1.03 Final [...] 0 0 - 4 Final UA Specific [place], External 08/02/2016 1.023 1.005 - 1.03 Final [...] Endoscopy Patient: Paulara Breaux : 1990 Acct: [id number] Exam Date: Saturday, January 21, 2017 Doctor: [...] If unable to reach your physician, call [facility] Emergency Department at [address] Your doctor [...] Exams Patient: Paula Breaux : 1990 Acct: [id number] Exam Date: Saturday, January 21, 2017 Doctor: Johan Farmer MD You have had an examination of the gastrointestinal tract. The chances of difficulty foll owing this procedure are minimal. The following instructions will assist you in your recov ahwa. ACTIVITIES: Rest quietly until sedation wears off. [...] If unable to reach your physician, call [facility] Emergency Department at [address] Your doctor [...] 01/21/2017 | PROVATION | | 12:23 PMMRN: [id number] #: [id number] of : | | | 1990Admit Type: AmbulatoryAge: 26Room: [facility] 02Gender: FemaleNote | | | Status: FinalizedAttending MD: Johan Farmer , [facility] CENTERrocedure: | | | Upper GI endoscopyIndications: Abdominal pain, | | | NauseaProviders: Johan Farmer MD, Ofelia Garber RN, | | | Sejal Diallo, Jewelry Drilling Machine Operator, [facility]. | | | MD Alta (Anesthesia Staff)Referring [...] | | | the anesthesiologist and the thermal technician in the pre-procedure | | | [...] PMScope Out: 12:50:48 PM | | | [facility], [address] [place] [address] | | | [address] | | | instructions were provided to [...] |Scope Out: 12:50:48 PM | | | [facility], [address] [place] [address] | | | [address] | | + + -+ + +---------+ [...] 01/21/2017 | PROVATION | | 12:18 PMMRN: [id number] #: [id number] of : | | | 1990Admit Type: AmbulatoryAge: 26Room: [facility] 02Gender: FemaleNote | | | Status: FinalizedAttending MD: Johan Farmer , [facility]ENTERrocedure: | | | ColonoscopyIndications: Abdominal pain, | | | HematocheziaProviders: Johan Farmer MD, Ofelia | | | Shirlene RN, Sejal Diallo, Jewelry Drilling Machine Operator, | | | Skyler Holm MD (Anesthesia [...] the anesthesiologist and the | | | thermal technician in the pre-procedure area in the [...] PMScope Out: 12:57:15 PM | | | [facility], [facility] [address] [place], [place] | | | [address] | | | patient. Return to normal [...] |Scope Out: 12:57:15 PM | | | [facility], [facility] [address] [place], [place] | | | [address] | | + + ---+ + +---------+ + + | Performing | Address | City/State/[facility] Hospitalcode | Phone Number | | [...] | 1.010, 1.015, | | | | [place], | | 1.020, 1.025 | | | | POC | | | | | + + + + + + | Lot Number | [id number] | | | | + + + [...] microorganisms, abnormal infiltrates or neoplasia. TWK:[facility]:C2NR | | | GROSS DESCRIPTION: Received in [...] preparation were performed by | | | [facility], [address], [place] [address] | | | (Rn Peritoneal Dialysis: David Rosas M.D. CLIA#: [id number]). | | | Professional interpretation was performed by [facility], [address], [place] [address] (Rn Peritoneal Dialysis: David | | | Kari Rosas; CLIA#: [id number]). Diagnostician: Syed Aponte | | | King [...]
--- OUTSIDE RECORDS SUMMARY | ~2020-04-24 | XMS | Encounter Summary ---
Demographics + + + | Address | [address] | | | [place] [address] | + + + | Home Phone | | + + + | Preferred Language | Unknown | + + + | Marital Status | Single | + + + | Protestant Affiliation | Unknown | + + + | Race | White | + + + | Ethnic Group | Not or | + + + Author + + + | Author | [facility] | | | and [place] | + + + | Organization | [facility] | | | [...] Team Providers + +------+ + | Care Pad Extractor Tender Name | Role | Phone | [...] + + | 01/14/ | Telephone | [facility] | [facility], | Referral | | 2017 | | GASTROENTEROLOGY | ARIELLE Damon [address] | (PreAuthorization) | | | | [address] [place] | [address] | (gastric emptying | | | | [address] [place], [place] | [place], [place] | study) | | | | [address] | [address] | | | | | [phone] | | | +--------+ + + + [...] approved. This order has been faxed to [facility] with demographics and referral authorization. documented in this encounter Plan of Treatment Not on filedocumented as of this encounter Visit Diagnoses Not on filedocumented in this encounter"
--- OUTSIDE RECORDS SUMMARY | ~2020-04-24 | XMS | Encounter Summary ---
Demographics + + + | Address | [address] | | | [place] [address] | + + + | Home Phone | | + + + | Preferred Language | Unknown | + + + | Marital Status | Single | + + + | Shinto Affiliation | Unknown | + + + | Race | White | + + + | Ethnic Group | Not or | + + + Author + + + | Author | [facility] | | | and [place] | + + + | Organization | [facility] | | | [...] Team Providers + +------+ + | Care Manager Social Media Name | Role | Phone | + [...] | | | | | | | [place] | | | | | | | COLONOSCOPY | | | | | | | FLX DX | | | | | | | W/COLLJ SPEC | | | | | | | WHEN PFRMD | | | | | | | [place] | | | | | | | COLONOSCOPY | | | | | | | W/BIOPSY | | | | | | | SINGLE/MULTI | | | | | | | PLE TX | | | | | | | COLSC FLX | | | | | | | W/RMVL OF | | | | | | | TUMOR POLYP | | | | | | | LESION SNARE | | | | | | | TQ TX | | | | | | | [...] | | | | | [address] | [place] | | | | | [place] | [address] | | | | | [address] | | | | | | [phone] | | | +--------+ + + + [...] EVALUATION Paula Breaux 27 y.o. female 1990 [id number] Procedure(s) COLONOSCOPY (N/A Rectum) Cooperates? Yes Mental [...] signed by Franck Martin MD 03/07/2017 10:43 [facility]ERElectronically signed by Franck Martin MD at 07/2016 10:43 AM PDTAnesthesia Preprocedure Evaluation - Franck Martin MD - 03/07/2017 9: 18 AM PDT ANESTHESIA PREANESTHESIA EVALUATION Paula Breaux 27 y.o. female 1990 [id number] Procedure(s): COLONOSCOPY (N/A Rectum) Medical history, anesthesia, [...]
[~2020-04-24 07:50] MED LIST changes: +METOCLOPRAMIDE H5 MG PO; +SERTRALINE HCL50 MG PO
--- NOTE | 2020-04-25 12:12 | PR ---
[facility] [address] [facility] [place] [address] Signed PP Progress Notes Datetime Report Generated by CPN: 04/25/2020 12:12 SUBJECTIVE: [id number] Pain: Within Normal Limits Nausea/Vomiting: Denies Vital Signs: [id number] Vital Signs: Reviewed; Within Normal Limits Notable Details: PP Hgb/Hct =- 8.8/27.6 EXAM: Ongoing Abdomen/Uterus: Normal Lochia: Normal Extremities: Normal Incision: Normal IMPRESSION/PLAN/PROCEDURES: [id number] Impression: Normal Progression Plan: Continue Present Management Procedures: None Progress Notes: Doing well, without complaint, up voiding without difficulty. Signing Physician: Kristan Tucker MD Copies: ~ *Electronically Signed* 04/25/20 1212 KRISTAN TUCKER MD PATIENT NAME: ROXANA CLINE PROGRESS NOTE DATE OF : [birth year] PHYSICIAN: KRISTAN TUCKER MD RPT #: [id number] REPORT IS CONFIDENTIAL AND NOT TO BE RELEASED WITHOUT AUTHORIZATION
--- NOTE | 2020-04-26 12:35 | PR ---
[facility] [address] [place] [address] Signed PP Progress Notes Datetime Report Generated by CPN: 04/26/2020 12:34 SUBJECTIVE: [id number] Pain: Within Normal Limits Nausea/Vomiting: Denies Flatus: Yes Vital Signs: [id number] Vital Signs: Reviewed; Within Normal Limits Notable Details: PP Hgb/Hct =- 8.8/27.6 EXAM: Ongoing Abdomen/Uterus: Normal Lochia: Normal Extremities: Normal Incision: Normal IMPRESSION/PLAN/PROCEDURES: [id number] Impression: Normal Progression Plan: Discharge Procedures: None Progress Notes: Doing well, without complaint, wants to go home. Signing Physician: Kristan Tucker MD Copies: ~ *Electronically Signed* 04/26/20 1234 KRISTAN TUCKER MD PATIENT NAME: ROXANA CLINE PROGRESS NOTE DATE OF : [birth year] PHYSICIAN: KRISTAN TUCKER MD RPT #: [id number] REPORT IS CONFIDENTIAL AND NOT TO BE RELEASED WITHOUT AUTHORIZATION
--- NOTE | 2020-04-27 08:23 | OR ---
[facility] [address] [facility] [place], [place] [address] Signed DATE OF OPERATION: 04/24/2020 SURGEON: Garrett Jesus MD Patient of Dr. Jesus. PREOPERATIVE DIAGNOSIS: Term labor, previous section x2. POSTOPERATIVE DIAGNOSIS: Term labor, previous section x2. PROCEDURE: Repeat low transverse segment section. Delivery of live female . MULTI PUNCH OPERATOR: Perico Moya DO ANESTHESIA: Spinal. ESTIMATED BLOOD LOSS: 600 mL. COMPLICATIONS: None. DRAINS: Mary to bladder. FINDINGS: Live female infant, Apgars 8 and 9. Weight 6 pounds 8 ounces. True knot in the cord x1. DESCRIPTION OF PROCEDURE: The patient was brought into the operating room, placed supine position. After adequate spinal anesthesia was obtained, was prepped and draped in usual sterile fashion. Mary catheter was placed in the bladder. A Pfannenstiel skin incision was made through previous surgical scar using a scalpel. A subcutaneous tissue was dissected with the Bovie and scalpel. The fascia was nicked with scalpel, extended in a transverse fashion using curved scissors. The underlying abdominal musculature was then bluntly and Electronically Signed By: GARRETT JESUS MD 04/27/20 0823 PATIENT NAME: ROXANA CLINE OPERATIVE REPORT DATE OF : [birth year] REPORT #: [id number] PHYSICIAN: GARRETT JESUS MD PCP: PERICO MOYA DO REPORT IS CONFIDENTIAL AND NOT TO BE RELEASED WITHOUT AUTHORIZATION [facility] [address] [place], [place] [address] Signed sharply from the fascia above and below the incision. The abdominal musculature was bluntly and sharply along the midline. The peritoneum was grasped with hemostats, elevated, nicked with Metzenbaum scissors and extended in a vertical fashion using Metzenbaum scissors. The Caleb self-retaining retractor was inserted into the incision and tightened in place. The lower uterine segment was identified. There were peritoneal adhesions on the left side extending up towards the lower and mid portion of the uterus. The right side was more free, so the peritoneal adhesion was bluntly pushed down and off to the side, so that the lower uterine segment could be carefully nicked with scalpel. The incision was extended in a transverse fashion using finger dissection. Clear fluid came from the incision. The was noted to be in vertex ROP presentation. Infant head easily delivered from the incision. The rest of the was easily delivered from the incision. The mouth and the cord doubly clamped and cut and passed off table in good condition awaiting nurse. Cord was noted to have a true knot present. The placenta was manually removed and uterine cavity explored a lap pad to remove any retained membranes. An angle stitch of 0 Monocryl was placed at 1 end in the incision and a running locking stitch of 0 Monocryl starting at the other end used to close the incision. A 2nd running stitch of 0 Monocryl was used to imbricate the 1st layer. Good hemostasis was noted. The entire pelvis was irrigated, suctioned and examined. Any superficial bleeding spots were cauterized with the Bovie. The peritoneal adhesion on the left side still elevated somewhat above the incision, but was bluntly taken off to the side and was not clear where the adhesions started and where the bladder ended, so the adhesion was left alone. The entire pelvis was irrigated, suctioned examined, and any superficial bleeding spots again cauterized with the Bovie. Good hemostasis was noted, so the Caleb retractor was removed. A sheet of ACell placed over the lower uterine segment and then the anterior wall peritoneum closed using running stitch of 2-0 Vicryl suture. Abdominal musculature was reapproximated using interrupted stitches of 0 Vicryl suture. Abdominal wall incision was irrigated, suctioned, and examined. Any bleeding spots cauterized with the Bovie. Powdered ACell was then sprinkled over the abdominal musculature and the fascia was closed using 2 running stitches of 0 Vicryl suture meeting in the midline. Subcutaneous tissue was irrigated, suctioned and examined. Any bleeding spots were cauterized with the Bovie. The subcutaneous tissue was then closed using interrupted stitches of 3-0 Vicryl suture and the skin reapproximated using skin clips. The patient tolerated the procedure well, went to recovery room in good condition. The sponge, needle, and instrument count were correct at the end of the procedure. Garrett Jesus MD Electronically Signed By: GARRETT JESUS MD 04/27/20 0823 PATIENT NAME: ROXANA CLINE OPERATIVE REPORT DATE OF : [birth year] REPORT #: [id number] PHYSICIAN: GARRETT JESUS MD PCP: PERICO MOYA DO REPORT IS CONFIDENTIAL AND NOT TO BE RELEASED WITHOUT AUTHORIZATION [address] [address] Signed [facility] /[id number] Copies: ~ Electronically Signed By: GARRETT JESUS MD 04/27/2023 PATIENT NAME: ROXANA CLINE CHIVO OPERATIVE REPORT DATE OF : [birth year] REPORT #: [id number] PHYSICIAN: GARRETT JESUS MD PCP: PERICO MOYA DO REPORT IS CONFIDENTIAL AND NOT TO BE RELEASED WITHOUT AUTHORIZATION
== END 2020-04-26 13:45 | disposition home or self-care (01) | DRG 788 ==
LOC: FBCO 07:50 → FBC 08:26
PROVIDERS: ADMIT General Practice; ATTEND General Practice
PROC: 10D00Z1 Extraction of Products of Conception, Low, Open Approach (ICD-10-PCS; principal; 2020-04-24 10:00)
DX: O34.211 Maternal care for low transverse scar from previous cesarean delivery (principal); N85.8 Other specified noninflammatory disorders of uterus; Z37.0 Single live birth; O99.824 Streptococcus B carrier state complicating childbirth; O90.81 Anemia of the puerperium; D64.9 Anemia, unspecified; O69.2XX0 Labor and delivery complicated by other cord entanglement, with compression, not applicable or unspecified; O99.344 Other mental disorders complicating childbirth; F32.9 Major depressive disorder, single episode, unspecified; Z3A.39 39 weeks gestation of pregnancy; Z87.891 Personal history of nicotine dependence; Z88.0 Allergy status to penicillin; Z88.5 Allergy status to narcotic agent; Z86.19 Personal history of other infectious and parasitic diseases; Z79.899 Other long term (current) drug therapy
CPT/HCPCS: 01961; 36415; 85027; A9270; J0690; J1644; J1790; J2001; J2274; J2405; J2550; J2590; J2765; J7121

== ENCOUNTER 2024-03-05 19:50 | Emergency (ER) | payer OTHER ==
[~2024-03-05] VITALS: Ht 157.5 cm; Wt 100.0 kg
[~2024-03-05 19:50] MED LIST changes: +FLUOXETINE HCL40 MG PO; +HYDROCODON-ACE1 EA11 PO
[2024-03-05] MEDS ORDERED: LACTATED RINGER'S 1,000 ML IV ONE ×2 (20:15→21:45)
[2024-03-05 20:24] LABS: EOSINOPHILS 1.1 % (0-6); HEMATOCRIT 37.3 % (35.0-50.0); HEMOGLOBIN 12.3 g/dL (12.0-18.0); LYMPHOCYTES 37.2 % (24-44); MCH 26.6 (27-36); MCHC 32.8 g/dl (30-36); MCV 80.9 fl (81-99); NEUTROPHILS 51.7 % (39-80); PLATELET COUNT 260 K/uL (140-440); RBC 4.62 M/ul (4.3-5.7); RDW 13.7 (10.5-15.0)
[2024-03-05 20:48] LABS: ACETAMINOPHEN 0 ug/mL (10-30); ALBUMIN 3.9 g/dL (3.4-5.0); ALBUMIN/GLOBULIN RATIO 0.95 (1.1-2.4); ALCOHOL, MEDICAL <3 ng/dL (<3); ALKALINE PHOSPHATASE 48 U/L (46-116); ALT (SGPT) 95 U/L (14-59); ANION GAP 16.8 (7-21); AST (SGOT) 53 U/L (15-37); BILIRUBIN, TOTAL 1.3 ng/dL (0.2-1.0); BUN/CREATININE RATIO 11.68 (6.0-28.6); CALCIUM 9.1 mg/dL (8.5-10.1); CARBON DIOXIDE 24 mmol/L (21-32); CHLORIDE 105 mmol/L (98-107); CREATININE, SERUM 0.77 mg/dL (0.55-1.02); GLOMERULAR FILTRATION RATE,EST 105 mL/min (>60); POTASSIUM 2.8 mmol/L (3.5-5.1); TSH, 3RD GENERATION 5.192 uIU/mL (0.358-3.740); UREA NITROGEN 9 mg/dL (7-18)
[2024-03-05 20:56] LABS: SALICYLATE <0.2 mg/dL (2.8-20.0)
[2024-03-05] MEDS ORDERED: POTASSIUM CHLORIDE 10 MEQ TABCR PO ONE ×2 (21:15→22:30)
[2024-03-05 21:35] LABS: BILIRUBIN, URINE NEGATIVE (negative); BLOOD/HGB, URINE MODERATE (Negative); KETONE, URINE NEGATIVE (Negative); LEUK ESTERASE, URINE TRACE (negative); NITRITE, URINE NEGATIVE (negative)
[2024-03-05 21:41] LABS: RED BLOOD CELLS, URINE 0-1 /hpf (0-5)
[2024-03-05 21:42] LABS: BACTERIA, URINE 1+ /hpf (negative); CASTS, URINE NONE SEEN \\lpf; COLLECTION TYPE, URINE CLEAN CATCH; CRYSTALS, URINE NONE SEEN (0-1+); EPITHELIAL CELLS, URINE SQUAMOUS 2+ /lpf (0-1+); REFLEX CULTURE, URINE No (No)
[2024-03-05 22:28] LABS: AMPHETAMINES, URINE POSITIVE (NEGATIVE); BARBITURATES, URINE NEGATIVE (NEGATIVE); BENZODIAZEPINE, URINE NEGATIVE (NEGATIVE); BUPRENORPHINE, URINE NEGATIVE (NEGATIVE); CANNABINOID, URINE NEGATIVE (NEGATIVE); COCAINE, URINE NEGATIVE (NEGATIVE); ECSTASY, URINE NEGATIVE (NEGATIVE); METHADONE, URINE NEGATIVE (NEGATIVE); OPIATES, URINE POSITIVE (NEGATIVE); OXYCODONE, URINE NEGATIVE (NEGATIVE); PHENCYCLIDINE, URINE NEGATIVE (NEGATIVE)
[2024-03-05 22:44] LABS: FENTANYL, URINE NEGATIVE (NEGATIVE)
[2024-03-05 23:05] VITALS: BP 118/83
--- NOTE | 2024-03-07 09:00 | EKG ---
[facility] [address] [facility] [place] [address] Signed Normal sinus rhythm Normal ECG No previous ECGs available Confirmed by Eddi Cisse MD ([id number]) on 03/07/2024 9:00:25 AM Electronically Signed By: EDDI CISSE 03/07/24 0900 PATIENT NAME: ROXANA CLINE Electrocardiogram DATE OF : [birth year] PHYSICIAN: EDDI CISSE REPORT #: [id number] REPORT IS CONFIDENTIAL AND NOT TO BE RELEASED WITHOUT AUTHORIZATION
== END 2024-03-05 23:07 | disposition home or self-care (01) ==
LOC: ED 19:50
PROVIDERS: Internal Medicine
DX: F43.0 Acute stress reaction (principal); F43.20 Adjustment disorder, unspecified; Z87.891 Personal history of nicotine dependence; Z88.0 Allergy status to penicillin; Z88.5 Allergy status to narcotic agent; Z91.048 Other nonmedicinal substance allergy status; Z79.899 Other long term (current) drug therapy
CPT/HCPCS: 36415; 71045; 80053; 80307; 81001; 83735; 84443; 84484; 84703; 85025; 93005; 93010; 96360; 96361; 99284-25; A9270; G0480; J7121

== ENCOUNTER 2024-07-25 13:04 | Emergency (ER) | payer OTHER ==
[~2024-07-25] VITALS: Ht 157.5 cm; Wt 103.9 kg
[2024-07-25 14:00] LABS: BASOPHILS 1.1 % (0-2); EOSINOPHILS 2.9 % (0-6); HEMATOCRIT 39.4 % (35.0-50.0); HEMOGLOBIN 13.3 g/dL (12.0-18.0); LYMPHOCYTES 36.6 % (24-44); MCH 27.8 (27-36); MCHC 33.6 g/dl (30-36); MCV 82.5 fl (81-99); MONOCYTES 9.5 % (0-12); NEUTROPHILS 49.9 % (39-80); PLATELET COUNT 258 K/uL (140-440); RBC 4.78 M/ul (4.3-5.7); RDW 13.6 (10.5-15.0)
[2024-07-25 14:01] LABS: BILIRUBIN, URINE NEGATIVE (negative); BLOOD/HGB, URINE LARGE (Negative); KETONE, URINE TRACE (Negative); LEUK ESTERASE, URINE TRACE (negative); NITRITE, URINE POSITIVE (negative)
[2024-07-25 14:08] LABS: EPITHELIAL CELLS, URINE SQUAMOUS 3+ /lpf (0-1+); RED BLOOD CELLS, URINE >50 /hpf (0-5)
[2024-07-25 14:09] LABS: BACTERIA, URINE RARE /hpf (negative); CASTS, URINE NONE SEEN \\lpf; COLLECTION TYPE, URINE CLEAN CATCH; CRYSTALS, URINE NONE SEEN (0-1+); REFLEX CULTURE, URINE No (No); WHITE BLOOD CELLS, URINE 0-1 /HPF (0-5)
[2024-07-25 14:10] LABS: ALBUMIN 3.5 g/dL (3.4-5.0); ALBUMIN/GLOBULIN RATIO 0.81 (1.1-2.4); ANION GAP 14.6 (7-21); BILIRUBIN, TOTAL 0.9 ng/dL (0.2-1.0); BUN/CREATININE RATIO 10.81 (6.0-28.6); CREATININE, SERUM 0.74 mg/dL (0.55-1.02); POTASSIUM 3.6 mmol/L (3.5-5.1); PROTEIN, TOTAL 7.8 g/dL (6.4-8.2)
[2024-07-25] MEDS ORDERED: HYDROmorphone HCL 1 MG/ML SYR IV PRN (14:30)
[2024-07-25] MEDS ORDERED: ondansetron HCL 4 MG/2 ML VIAL IV ONE ×3 (15:00→16:30)
[2024-07-25] MEDS ORDERED: DILAUDID2 MG PO (17:40)
[2024-07-25] MEDS ORDERED: HYDROmorphone HCL 2 MG HOME.PACK PO ONE (17:45)
[2024-07-25] MEDS ORDERED: KETOROLAC TROMETHAMINE 30 MG/ML VIAL IV ONE (17:45)
[2024-07-25 17:52] VITALS: BP 131/78
== END 2024-07-25 18:05 | disposition home or self-care (01) ==
LOC: ED 13:04
PROVIDERS: Emergency Medicine
DX: R10.2 Pelvic and perineal pain (principal); Z98.890 Other specified postprocedural states; Z87.891 Personal history of nicotine dependence; Z88.0 Allergy status to penicillin; Z88.5 Allergy status to narcotic agent; Z91.048 Other nonmedicinal substance allergy status
CPT/HCPCS: 36415; 74177; 80053; 81001; 84703; 85025; 96375; 96376; 99284-25; J1171; J1885; J2405; Q9967

== ENCOUNTER 2024-08-03 16:21 | Emergency (ER) | payer OTHER ==
[~2024-08-03] VITALS: Ht 157.5 cm; Wt 101.6 kg
[~2024-08-03 16:21] MED LIST changes: +DILAUDID2 MG PO
[2024-08-03 18:00] VITALS: BP 109/85
[2024-08-03] MEDS ORDERED: DILAUDID2 MG PO (18:28)
[2024-08-05] MEDS ORDERED: IBU800 MG PO (16:11)
[2024-08-05] MEDS ORDERED: METRONIDAZOLE500 MG PO (16:12)
[2024-08-05] MEDS ORDERED: PROCARDIA XL30 MG PO (16:12)
== END 2024-08-03 18:35 | disposition home or self-care (01) ==
LOC: ED 16:21
DX: R10.2 Pelvic and perineal pain (principal); D25.9 Leiomyoma of uterus, unspecified; Z87.891 Personal history of nicotine dependence; Z88.0 Allergy status to penicillin; Z91.048 Other nonmedicinal substance allergy status
CPT/HCPCS: 99283

== ENCOUNTER 2024-08-10 05:48 | Day surgery (SDC) | payer OTHER ==
[2024-08-05 16:17] VITALS: BP 122/81
[~2024-08-10] VITALS: Ht 157.5 cm; Wt 101.8 kg
[~2024-08-10 05:48] MED LIST changes: +IBU800 MG PO; +LACTATED RINGER'S 1,000 ML IV SCH; +METRONIDAZOLE500 MG PO; +PROCARDIA XL30 MG PO
[2024-08-10 06:04] VITALS: BP 118/77
[2024-08-10] MEDS ORDERED: METOCLOPRAMIDE HCL 10 MG/2 ML SDV ONE (06:43)
[2024-08-10] MEDS ORDERED: KETOROLAC TROMETHAMINE 30 MG/ML VIAL ONE (06:43)
[2024-08-10] MEDS ORDERED: propofoL 200 MG/20 ML VIAL ONE ×3 (06:43→09:32)
[2024-08-10] MEDS ORDERED: FAMOTIDINE 20 MG/ 2 ML VIAL ONE (06:43)
[2024-08-10] MEDS ORDERED: LIDOCAINE HCL 4% 5 ML AMP ONE (06:43)
[2024-08-10] MEDS ORDERED: ondansetron HCL 4 MG/2 ML VIAL ONE (06:43)
[2024-08-10] MEDS ORDERED: SUGAMMADEX SODIUM 200 MG/2 ML ML ONE (06:43)
[2024-08-10] MEDS ORDERED: LACTATED RINGER'S 1,000 ML IV ONE ×3 (06:43→09:45)
[2024-08-10] MEDS ORDERED: fentaNYL citrate 100 MCG/2 ML VIAL ONE (06:43)
[2024-08-10] MEDS ORDERED: DEXAMETHASONE SOD PHOS 4 MG/ML VIAL ONE (06:43)
[2024-08-10] MEDS ORDERED: SUCCINYLCHOLINE IN 0.9% NACL 200 MG/10 ML SYRINGE ONE (06:43)
[2024-08-10] MEDS ORDERED: ROCURONIUM BROMIDE 50 MG/5 ML SYR ONE (06:43)
[2024-08-10] MEDS ORDERED: MIDAZOLAM HCL 2 MG/2 ML VIAL ONE (06:43)
[2024-08-10] MEDS ORDERED: IBLOOD GLUCOSE TEST STRIP 1 EA TEST VI PRN ×2 (07:00→08:15)
[2024-08-10] MEDS ORDERED: CEFAZOLIN SODIUM 3 GM/30 ML SYR IV SCH (07:00)
[2024-08-10] MEDS ORDERED: LIDOCAINE HCL 1% 5 ML SDV INJ ONE (07:00)
[2024-08-10] MEDS ORDERED: dexmedeTOMIDine HCl 200 MCG/2 ML VIAL ONE (07:30)
--- NOTE | 2024-08-10 07:35 | NUR ---
PT NOT AVAILABLE FOR VISIT. PROVIDED PRAYER.
[2024-08-10] MEDS ORDERED: ATROPINE SULFATE 1 MG/ML VIAL ONE (07:46)
[2024-08-10] MEDS ORDERED: KETOROLAC TROMETHAMINE 30 MG/ML VIAL IV PRN (08:15)
[2024-08-10] MEDS ORDERED: fentaNYL citrate 50 MCG/ML SDV IV PRN (08:15)
[2024-08-10] MEDS ORDERED: ondansetron HCL 4 MG/2 ML VIAL IV PRN ×2 (08:15→11:00)
[2024-08-10] MEDS ORDERED: PROCHLORPERAZINE EDISYLATE 10 MG/2 ML VIAL IV PRN (08:15)
[2024-08-10] MEDS ORDERED: MEPERIDINE HCL 25 MG/1 ML VIAL IV PRN (08:15)
[2024-08-10] MEDS ORDERED: METOCLOPRAMIDE HCL 10 MG/2 ML SDV IV PRN (08:15)
[2024-08-10] MEDS ORDERED: droPERidol 5 MG/2 ML VIAL IV PRN (08:15)
[2024-08-10] MEDS ORDERED: NALOXONE HCL 0.4 MG SYR IV PRN ×2 (08:15→11:00)
[2024-08-10] MEDS ORDERED: ACETAMINOPHEN 1,000 MG/100 ML VIAL ONE (09:51)
[2024-08-10] MEDS ORDERED: ePHEDrine sulfate 50 MG/ML AMP ONE (10:29)
--- NOTE | 2024-08-10 10:33 | NUR ---
08/10/24 1033 Maureen Spivey PATIENT IS BEGINNING TO SWALLOW.SHE FOLLOWS INSTRUCTIONS TO OPEN HER MOUTH. ORAL AIRWAY IS REMOVED. MAYDA DAMON CRNA ADMINISTERS EPHEDRINE.
[2024-08-10] MEDS ORDERED: bisacodyL 10 MG SUPP PR PRN (11:00)
[2024-08-10] MEDS ORDERED: MAGNESIUM HYDROXIDE/AL HYDROX 30 ML CUP PO PRN (11:00)
[2024-08-10] MEDS ORDERED: HYDROCODONE/ACETA 5/325 TAB PO PRN (11:00)
[2024-08-10] MEDS ORDERED: FAMOTIDINE 20 MG TAB PO PRN (11:00)
[2024-08-10] MEDS ORDERED: FAMOTIDINE 20 MG/ 2 ML VIAL IV PRN (11:00)
--- NOTE | 2024-08-10 11:15 | NUR ---
PT ARRIVES TO DS DEPT FROM PACU VIA STRETCHER. PT IS A&O AND ASKING QUESTIONS APPROPRIATELY AT THIS TIME. PT REPORTS PAIN AT 7/10 AND DESCRIBES IT PRESSURE IN LOWER ABDOMEN, PRN ORAL PAIN MED GIVEN (SEE EMAR). PT TOLERATING ICE CHIPS AND CRACKER WITHOUT DIFFICULTY SWALLOWING OR ONSET OF NAUSEA. LAP SITES VISUALIZED, C/D/I. HEATING PAD PROVIDED TO ASSIST WITH PAIN, PT STATES IT IS HELPING AT THIS TIME. PT ON RA W/O2 >90%, RESPIRATIONS EVEN AND UNLABORED, NO SIGNS OF DISTRESS. MOTHER IS AT BEDSIDE, CALL LIGHT WITHIN REACH. PT STATES NO FURTHER QUESTIONS OR NEEDS AT THIS TIME.
[2024-08-10 11:21] VITALS: BP 104/64
[2024-08-10 12:16] VITALS: BP 108/74
--- NOTE | 2024-08-10 12:29 | NUR ---
Hourly rounding on patient. Patient stated that she feels the urge to uriante, so patient got up to use the restroom. she was able to urinate 200mL. pad and mesh panties provided as patient having a scant amount of vaginal bleeding. right lower quadrant and umbilicus lap sites are clean, dry, and the dermabond is intact. The dermabond to her lap site suprapubicly and under her pannus is lifted up and when lifting up on her pannus, there is bleeding. pressure applied with gauze and left in place. Dr. Ryder called in OR 4 to get her recommendation. She states to apply pressure if there is active bleeding and she will come to assess the patient after she is done with her current case. Patient has otherwise met all of her discharge criteria including ambulating, urinating, eating, and drinking. She reports her pain is tolerable with her rating it a 4/10 and she expressed the desire to go home. Patient understands that Dr. Ryder is to assess her before she is able to go home. she denies any needs at this time. call light within reach
--- NOTE | 2024-08-10 12:35 | NUR ---
Answered patient's call light. Patient states that she got up to use the restroom and she noticed blood on her gown that had not previously had blood on it. I assessed patient's suprapubic lap site and the gauze that is there is saturated in blood. No active bleeding. New gauze applied to site and asked patietn to stay in bed until Dr. Ryder is able to assess her. She expressed understanding.
--- NOTE | 2024-08-10 12:45 | NUR ---
Dr. Ryder at bedside to assess patient's suprapubic lap site. Additional dermabond applied to lap site and allowed to dry. I had patient stand up to ensure that it stays in place and there is no additional bleeding. No bleeding noted to the site. Patient allowed to get dressed at this time.
[2024-08-10] MEDS ORDERED: HYDROCODON-ACE1 EA10 PO (13:00)
[2024-08-10 13:16] VITALS: BP 104/77
--- NOTE | 2024-08-10 13:40 | NUR ---
Patient is dressed. Discharge instructions reviewed with patient in detail and she expressed understanding of all instructions. Her mom returned from dropping off her prescription. IV removed from left hand. Patient is discharged via wheelchair where her Mom Nahomi is to take her home.
[2024-08-10] MEDS ORDERED: MINERAL OIL/CHONDRUS 30 ML BTL PO SCH (21:00)
[2024-08-10] MEDS ORDERED: SENNOSIDES/DOCUSATE 1 EA TAB PO SCH (21:00)
--- NOTE | 2024-08-12 16:38 | PATH ---
[facility] [address], [place] [address] Signed SPECIMEN(S): A UTERUS, CERVIX, TUBES, MULTIPLE FIBROIDS SPECIMEN SOURCE: A. UTERUS, CERVIX, TUBES, MULTIPLE FIBROIDS CLINICAL HISTORY: Leiomyomata of uterus; pelvic pain. FINAL PATHOLOGIC DIAGNOSIS: Uterus, cervix, tubes and multiple fibroids: - Interval to early secretory endometrium, negative for atypical features or evidence of malignancy. - Benign endo- and ectocervix. - Benign myometrial leiomyomas with focal incidental calcification and focal chronic inflammation. - Two benign fimbriated oviducts. JVR:clv MICROSCOPIC EXAMINATION: Histologic sections of all submitted blocks are examined by light microscopy. These findings, together with the gross examination, support the pathologic diagnosis. GROSS DESCRIPTION: The specimen, labeled and designated "Namita, S, " and designated on the requisition "bilateral tubes, cervix, uterus and multiple fibroids," is received in formalin and consists of 134 g morcellated uterus and cervix with attached fallopian tubes. The specimen is received in multiple pieces that have an aggregate measurement of 12.5 x 9.6 x 4.4 cm. Several of the tissue fragments display a pink focally congested serosa and a fragmented endometrial cavity lined by a pink endometrium that has an average thickness of 0.3 cm. Sectioning through the tissue fragments reveals pink slightly trabeculated myometrium with multiple white-randall well-circumscribed intramural nodules the measure up to 3.2 cm in greatest dimension. The largest nodule has focal areas of yellow softening. The cervix and lower uterine segment measure 5.7 x 3.1 x 1.5 cm. The ectocervical mucosa is pale pink and wrinkled. Sectioning through the cervix fails to demonstrate any gross abnormalities. The first fallopian tube is 7.6 x 1.2 cm, with delicate fimbriae. The serosa is PATIENT NAME: ROXANA CLINE PATHOLOGY DATE OF : 89 REPORT #: [id number] PHYSICIAN: ANAYA GONZALEZ PCP: MYLENE KIM MD REPORT IS CONFIDENTIAL AND NOT TO BE RELEASED WITHOUT AUTHORIZATION [facility] [address], [place] [address] Signed violaceous and smooth. Cut sections reveal a pinpoint lumen. The second fallopian tube is fragmented measuring 6.1 x 0.9 cm and 2.7 x 0.9 cm, with delicate fimbriae. The serosa is violaceous and smooth. Cut sections reveal a pinpoint lumen. Environmental Services Attendant sections are submitted in seven cassettes. Cassette Summary: (A1) first fallopian tube (A2) second fallopian tube (A3) serosa and myometrium (A4) endomyometrium (A5) intramural nodules (A6) largest intramural nodule (A7) cervix FB (under the direct supervision of a pathologist) The Gross Description was prepared using a voice recognition system. The report was reviewed for accuracy; however, sound-alike word errors, addition and/or deletions may occur. If there is any question about this report, please contact Client Services. PERFORMING LABORATORY: Technical component was performed by [facility], [address] [place] [id number] (CLIA# [id number]). Professional interpretation was performed by [facility], [address] [place] [address], [place] [address] (CLIA#: [id number]). Diagnostician: David Rosas MD Pathologist Electronically Signed 08/12/2024 Copies: ~ PATIENT NAME: ROXANA CLINE PATHOLOGY DATE OF : 89 REPORT #: [id number] PHYSICIAN: ANAYA PATHOLOGY PCP: MYLENE KIM MD REPORT IS CONFIDENTIAL AND NOT TO BE RELEASED WITHOUT AUTHORIZATION
== END 2024-08-10 13:44 | disposition home or self-care (01) ==
LOC: DS 05:48 → OPS 05:48 → DS 07:30 → OPS 07:30
PROVIDERS: ATTEND Obstetrics & Gynecology
PROC: 0UT9FZZ Resection of Uterus, Via Natural or Artificial Opening With Percutaneous Endoscopic Assistance (ICD-10-PCS; principal; 2024-08-10 07:30)
DX: D25.9 Leiomyoma of uterus, unspecified (principal); K21.9 Gastro-esophageal reflux disease without esophagitis; F43.10 Post-traumatic stress disorder, unspecified
CPT/HCPCS: 00840; 88307; J0131; J0330; J0461; J0690; J1100; J1885; J2250; J2405; J2704; J2765; J3010; J3490; J7121

== ENCOUNTER 2024-08-21 10:53 | Emergency (ER) | payer OTHER ==
[~2024-08-21] VITALS: Ht 157.5 cm; Wt 99.8 kg
[2024-08-21] MEDS ORDERED: HYDROmorphone HCL 1 MG/ML SYR IV PRN (11:15)
[2024-08-21 11:22] LABS: BASOPHILS 0.6 % (0-2); EOSINOPHILS 2.6 % (0-6); HEMATOCRIT 32.2 % (35.0-50.0); HEMOGLOBIN 10.5 g/dL (12.0-18.0); LYMPHOCYTES 24.6 % (24-44); MCH 26.9 (27-36); MCHC 32.6 g/dl (30-36); MCV 82.4 fl (81-99); MONOCYTES 8.2 % (0-12); PLATELET COUNT 372 K/uL (140-440); RBC 3.91 M/ul (4.3-5.7); RDW 13.4 (10.5-15.0)
[2024-08-21 11:38] LABS: ALBUMIN 3.4 g/dL (3.4-5.0); ALBUMIN/GLOBULIN RATIO 0.64 (1.1-2.4); ANION GAP 14.6 (7-21); BILIRUBIN, TOTAL 0.9 mg/dL (0.2-1.0); BUN/CREATININE RATIO 12.9 (6.0-28.6); CALCIUM 9.3 mg/dL (8.5-10.1); CREATININE, SERUM 0.62 mg/dL (0.55-1.02); POTASSIUM 3.6 mmol/L (3.5-5.1); PROTEIN, TOTAL 8.7 g/dL (6.4-8.2)
[2024-08-21 11:47] LABS: BILIRUBIN, URINE POSITIVE (negative); BLOOD/HGB, URINE LARGE (Negative); KETONE, URINE NEGATIVE (Negative); LEUK ESTERASE, URINE MODERATE (negative); NITRITE, URINE NEGATIVE (negative)
[2024-08-21 11:52] LABS: EPITHELIAL CELLS, URINE SQUAMOUS 2+ /lpf (0-1+)
[2024-08-21 11:53] LABS: BACTERIA, URINE 1+ /hpf (negative); CASTS, URINE NONE SEEN \\lpf; COLLECTION TYPE, URINE CLEAN CATCH; CRYSTALS, URINE NONE SEEN (0-1+); RED BLOOD CELLS, URINE 21-40 /hpf (0-5); REFLEX CULTURE, URINE No (No); WHITE BLOOD CELLS, URINE >50 /HPF (0-5)
[2024-08-21] MEDS ORDERED: SODIUM CHLORIDE 0.9% 1,000 ML IV ONE (13:15)
[2024-08-21] MEDS ORDERED: CLINDAMYCIN PHOSPHATE/D5W 900 MG/50 ML PIGGYBACK IV ONE (14:30)
[2024-08-21] MEDS ORDERED: CEFTRIAXONE/SODIUM CHLORIDE 2 GM/100 ML PIGGYBACK IV ONE (14:30)
[2024-08-21 16:25] VITALS: BP 132/81
== END 2024-08-21 16:28 | disposition home or self-care (01) ==
LOC: ED 10:53
PROVIDERS: Emergency Medicine
DX: T81.49XA Infection following a procedure, other surgical site, initial encounter (principal); N76.0 Acute vaginitis; Z90.710 Acquired absence of both cervix and uterus; Z87.891 Personal history of nicotine dependence; Z88.0 Allergy status to penicillin; Z88.5 Allergy status to narcotic agent; Z88.3 Allergy status to other anti-infective agents; Z79.899 Other long term (current) drug therapy
CPT/HCPCS: 36415; 74177; 80053; 81001; 85025; 96375; 96376; 99284-25; J0696; J1171; J3490; J7030; Q9967

== ENCOUNTER 2024-08-26 14:38 | Emergency (ER) | payer OTHER ==
[~2024-08-26] VITALS: Ht 157.5 cm; Wt 99.8 kg
[~2024-08-26 14:38] MED LIST changes: +CEFDINIR300 MG PO; +CLEOCIN HCL300 MG PO; +HYDROCODON-ACE1 EA10 PO; -LACTATED RINGER'S 1,000 ML IV SCH
[2024-08-26 15:31] LABS: BASOPHILS 0.9 % (0-2); EOSINOPHILS 4.9 % (0-6); HEMATOCRIT 28.8 % (35.0-50.0); HEMOGLOBIN 9.7 g/dL (12.0-18.0); LYMPHOCYTES 35.4 % (24-44); MCH 27.2 (27-36); MCHC 33.6 g/dl (30-36); MONOCYTES 7.7 % (0-12); NEUTROPHILS 51.1 % (39-80); PLATELET COUNT 360 K/uL (140-440); RBC 3.56 M/ul (4.3-5.7); RDW 13.5 (10.5-15.0)
[2024-08-26 15:46] LABS: ALBUMIN 3.4 g/dL (3.4-5.0); ALBUMIN/GLOBULIN RATIO 0.83 (1.1-2.4); ANION GAP 12.6 (7-21); BILIRUBIN, TOTAL 0.5 mg/dL (0.2-1.0); BUN/CREATININE RATIO 18.03 (6.0-28.6); CALCIUM 8.6 mg/dL (8.5-10.1); CREATININE, SERUM 0.61 mg/dL (0.55-1.02); POTASSIUM 3.6 mmol/L (3.5-5.1); PROTEIN, TOTAL 7.5 g/dL (6.4-8.2)
[2024-08-26] MEDS ORDERED: ondansetron HCL 4 MG/2 ML VIAL IV ONE (16:00)
[2024-08-26] MEDS ORDERED: fentaNYL citrate 100 MCG/2 ML VIAL IV PRN (16:00)
[2024-08-26] MEDS ORDERED: OXYCODONE/ACETAMINOPHEN 1 TAB HOME.PACK PO ONE (17:15)
[2024-08-26 17:19] VITALS: BP 119/71
== END 2024-08-26 17:18 | disposition home or self-care (01) ==
LOC: ED 14:38
PROVIDERS: Emergency Medicine
DX: G89.18 Other acute postprocedural pain (principal); D64.9 Anemia, unspecified; Z87.891 Personal history of nicotine dependence; Z88.0 Allergy status to penicillin; Z88.5 Allergy status to narcotic agent; Z88.1 Allergy status to other antibiotic agents; Z79.899 Other long term (current) drug therapy; Z91.048 Other nonmedicinal substance allergy status
CPT/HCPCS: 36415; 74177; 80053; 83605; 85025; 96375; 99284-25; J2405; J3010; Q9967

== ENCOUNTER 2024-10-24 01:19 | Emergency (ER) | payer OTHER ==
[~2024-10-24] VITALS: Ht 157.5 cm; Wt 101.8 kg
[2024-10-24 01:54] LABS: BASOPHILS 1.4 % (0-2); EOSINOPHILS 1.1 % (0-6); HEMATOCRIT 33.8 % (35.0-50.0); LYMPHOCYTES 52.3 % (24-44); MCH 23.9 (27-36); MCHC 32.6 g/dl (30-36); MCV 73.4 fl (81-99); MONOCYTES 9.6 % (0-12); NEUTROPHILS 35.6 % (39-80); PLATELET COUNT 316 K/uL (140-440); RBC 4.61 M/ul (4.3-5.7); RDW 15.2 (10.5-15.0)
[2024-10-24 02:03] LABS: ALBUMIN 3.8 g/dL (3.4-5.0); ALBUMIN/GLOBULIN RATIO 0.86 (1.1-2.4); BILIRUBIN, TOTAL 0.8 mg/dL (0.2-1.0); BUN/CREATININE RATIO 15.78 (6.0-28.6); CALCIUM 8.5 mg/dL (8.5-10.1); CREATININE, SERUM 0.76 mg/dL (0.55-1.02); PROTEIN, TOTAL 8.2 g/dL (6.4-8.2)
[2024-10-24] MEDS ORDERED: ondansetron HCL 4 MG/2 ML VIAL IV ONE (02:15)
[2024-10-24 02:58] LABS: AMPHETAMINES, URINE NEGATIVE (NEGATIVE); BARBITURATES, URINE NEGATIVE (NEGATIVE); BENZODIAZEPINE, URINE POSITIVE (NEGATIVE); BUPRENORPHINE, URINE NEGATIVE (NEGATIVE); CANNABINOID, URINE NEGATIVE (NEGATIVE); COCAINE, URINE NEGATIVE (NEGATIVE); ECSTASY, URINE NEGATIVE (NEGATIVE); FENTANYL, URINE NEGATIVE (NEGATIVE); METHADONE, URINE NEGATIVE (NEGATIVE); OPIATES, URINE POSITIVE (NEGATIVE); OXYCODONE, URINE NEGATIVE (NEGATIVE); PHENCYCLIDINE, URINE NEGATIVE (NEGATIVE)
[2024-10-24] MEDS ORDERED: POTASSIUM CHLORIDE 10 MEQ TABCR PO ONE (03:15)
[2024-10-24 03:21] VITALS: BP 119/84
[2024-10-25] MEDS ORDERED: KEPPRA500 MG PO (00:36)
== END 2024-10-24 03:22 | disposition home or self-care (01) ==
LOC: ED 01:19
PROVIDERS: Emergency Medicine
DX: R56.9 Unspecified convulsions (principal); F43.10 Post-traumatic stress disorder, unspecified; Z87.891 Personal history of nicotine dependence; Z88.0 Allergy status to penicillin; Z88.1 Allergy status to other antibiotic agents; Z88.5 Allergy status to narcotic agent; Z79.899 Other long term (current) drug therapy
CPT/HCPCS: 36415; 51702; 70450; 80053; 80307; 84703; 85025; 99284-25; A9270; G0480; J2405

== ENCOUNTER 2024-10-24 21:10 | Emergency (ER) | payer OTHER ==
[~2024-10-24] VITALS: Ht 157.5 cm; Wt 101.8 kg
[2024-10-24 22:07] LABS: BASOPHILS 0.6 % (0-2); EOSINOPHILS 1.5 % (0-6); HEMATOCRIT 36.1 % (35.0-50.0); HEMOGLOBIN 11.7 g/dL (12.0-18.0); LYMPHOCYTES 47.9 % (24-44); MCH 23.7 (27-36); MCHC 32.3 g/dl (30-36); MCV 73.4 fl (81-99); MONOCYTES 8.1 % (0-12); NEUTROPHILS 41.9 % (39-80); PLATELET COUNT 280 K/uL (140-440); RBC 4.92 M/ul (4.3-5.7); RDW 15.3 (10.5-15.0)
[2024-10-24] MEDS ORDERED: levETIRAcetam 500 MG/5 ML VIAL IV ONE (22:15)
[2024-10-24 22:16] LABS: ALBUMIN/GLOBULIN RATIO 0.93 (1.1-2.4); ANION GAP 15.6 (7-21); BILIRUBIN, TOTAL 0.9 mg/dL (0.2-1.0); BUN/CREATININE RATIO 15.85 (6.0-28.6); CREATININE, SERUM 0.82 mg/dL (0.55-1.02); POTASSIUM 3.6 mmol/L (3.5-5.1); PROTEIN, TOTAL 8.3 g/dL (6.4-8.2)
[2024-10-25] MEDS ORDERED: KEPPRA500 MG PO (00:36)
[2024-10-25 01:00] VITALS: BP 107/66
== END 2024-10-25 01:00 | disposition home or self-care (01) ==
LOC: ED 21:10
PROVIDERS: Emergency Medicine
DX: R56.9 Unspecified convulsions (principal); Z87.891 Personal history of nicotine dependence; Z88.0 Allergy status to penicillin; Z88.5 Allergy status to narcotic agent; Z88.9 Allergy status to unspecified drugs, medicaments and biological substances
CPT/HCPCS: 36415; 80053; 85025; 96374; 99284-25; J1953

== ENCOUNTER 2024-10-28 19:42 | Emergency (ER) | payer OTHER ==
[~2024-10-28] VITALS: Ht 157.5 cm; Wt 108.6 kg
[~2024-10-28 19:42] MED LIST changes: +KEPPRA500 MG PO
[2024-10-28] MEDS ORDERED: DEXTROSE 50% 50 ML SYR IV ONE (19:45)
[2024-10-28] MEDS ORDERED: ONDANSETRON ODT4 MG PO (19:54)
[2024-10-28] MEDS ORDERED: LEVETIRACETAM750 MG PO (19:54)
[2024-10-28 20:00] LABS: EOSINOPHILS 1.5 % (0-6); HEMATOCRIT 32.8 % (35.0-50.0); HEMOGLOBIN 10.9 g/dL (12.0-18.0); LYMPHOCYTES 46.2 % (24-44); MCH 24.2 (27-36); MCHC 33.2 g/dl (30-36); MCV 72.9 fl (81-99); MONOCYTES 8.7 % (0-12); NEUTROPHILS 42.6 % (39-80); PLATELET COUNT 280 K/uL (140-440); RDW 15.4 (10.5-15.0)
[2024-10-28] MEDS ORDERED: levETIRAcetam 500 MG/5 ML VIAL IV ONE (20:00)
[2024-10-28] MEDS ORDERED: SODIUM CHLORIDE 0.9% 1,000 ML IV ONE (20:00)
[2024-10-28 20:08] LABS: ALBUMIN 3.5 g/dL (3.4-5.0); ALBUMIN/GLOBULIN RATIO 0.85 (1.1-2.4); ANION GAP 13.4 (7-21); BILIRUBIN, TOTAL 0.5 mg/dL (0.2-1.0); CALCIUM 8.4 mg/dL (8.5-10.1); CREATININE, SERUM 0.75 mg/dL (0.55-1.02); POTASSIUM 3.4 mmol/L (3.5-5.1); PROTEIN, TOTAL 7.6 g/dL (6.4-8.2)
[2024-10-28] MEDS ORDERED: KETOROLAC TROMETHAMINE 30 MG/ML VIAL IV ONE (21:30)
[2024-10-28] MEDS ORDERED: KEPPRA1000 MG PO (22:30)
[2024-10-28] MEDS ORDERED: NAYZILAM5 MG/0.1 M NAS (22:35)
[2024-10-28 23:00] VITALS: BP 119/72
[2024-10-30 20:41] LABS: KEPPRA (LEVETIRACETAM) 7 ug/mL (10-40)
== END 2024-10-28 23:14 | disposition home or self-care (01) ==
LOC: ED 19:42
PROVIDERS: Family Medicine
DX: R56.9 Unspecified convulsions (principal); F43.10 Post-traumatic stress disorder, unspecified; Z79.899 Other long term (current) drug therapy; Z88.5 Allergy status to narcotic agent; Z88.0 Allergy status to penicillin; Z87.891 Personal history of nicotine dependence
CPT/HCPCS: 36415; 80053; 80177; 84703; 85025; 96374; 96375; 99284-25; J1885; J1953; J7030

== ENCOUNTER 2024-11-09 17:15 | Emergency (ER) | payer OTHER ==
[~2024-11-09] VITALS: Ht 157.5 cm; Wt 100.7 kg
[~2024-11-09 17:15] MED LIST changes: +KEPPRA1000 MG PO; +LEVETIRACETAM750 MG PO; +NAYZILAM5 MG/0.1 M NAS; +ONDANSETRON ODT4 MG PO
[2024-11-09] MEDS ORDERED: KEPPRA500 MG PO (18:04)
[2024-11-09] MEDS ORDERED: LEXAPRO10 MG PO (18:04)
[2024-11-09 18:10] VITALS: BP 103/72
== END 2024-11-09 18:17 | disposition home or self-care (01) ==
LOC: ED 17:15
DX: R56.9 Unspecified convulsions (principal); F43.10 Post-traumatic stress disorder, unspecified; Z88.1 Allergy status to other antibiotic agents; Z88.0 Allergy status to penicillin; Z88.5 Allergy status to narcotic agent; Z79.899 Other long term (current) drug therapy
CPT/HCPCS: 99283

== ENCOUNTER 2025-03-24 20:43 | Emergency (ER) | payer OTHER ==
[~2025-03-24] VITALS: Ht 157.5 cm; Wt 100.7 kg
[~2025-03-24 20:43] MED LIST changes: +LEXAPRO10 MG PO
[2025-03-24] MEDS ORDERED: HYDROCODON-ACE1 EA10 PO (21:18)
[2025-03-24] MEDS ORDERED: HYDROCODONE BIT/ACETAMINOPHEN 5/325 MG 1 TAB HOME.PACK PO ONE (21:30)
[2025-03-24 21:38] VITALS: BP 141/97
== END 2025-03-24 21:38 | disposition home or self-care (01) ==
LOC: ED 20:43
DX: M79.671 Pain in right foot (principal); Z87.891 Personal history of nicotine dependence; Z88.0 Allergy status to penicillin; Z88.5 Allergy status to narcotic agent; Z88.3 Allergy status to other anti-infective agents; Z91.048 Other nonmedicinal substance allergy status; Z79.899 Other long term (current) drug therapy
CPT/HCPCS: 99283; A9270

== ENCOUNTER 2025-04-16 18:49 | Emergency (ER) | payer OTHER ==
[~2025-04-16] VITALS: Ht 157.5 cm; Wt 103.6 kg
--- OUTSIDE RECORDS SUMMARY | ~2025-04-16 | XMS | Continuity of Care Document ---
Demographics + + + | Address | [address] | | | [place] [address] | + + + | Preferred Language | Unknown | + + + | Marital Status | Legally | + + + | Shinto Affiliation | Unknown | + + + | Race | White | + + + | Ethnic Group | Not or | + + + Author + + + | Author | [facility] | + + + | Organization | [facility] | + + + | Address | [address] | | | [place] [address] | + + + | Phone | | + + + Care Team Providers + + + + | Care Rapid Transit Operator Name | Role | Phone | + + + + Unavailable | Unavailable | + + + + Unavailable | Unavailable | + + + + Allergies No information. Encounters No information. Functional Status No information. Immunizations No information. Medications + + + + | date | description | facility | + + + + | (no date) | ONDANSETRON | [facility] | | | | [facility] | + + + + | (no date) | PAROXETINE HCL | [facility] | | | | [facility] | + + + + | (no date) | IBUPROFEN | [facility] | | | | [facility] | + + + + | (no date) | METHOCARBAMOL | [facility] | | | | [facility] | + + + + | (no date) | NIFEdipine | [facility] | | | | [facility] | + + + + | (no date) | FLUOXETINE HCL | [facility] | | | | [facility] | + + + + | (no date) | FLUOXETINE HCL | [facility] | | | | [facility] | + + + + | (no date) | HYDROCODONE | [facility] | | | BIT/ACETAMINOPHEN | [facility] | + + + + | 2025-03-24 00:00 | HYDROCODONE | [facility] | | | BIT/ACETAMINOPHEN | [facility] | + + + + | (no date) | BUPROPION HCL | [facility] | | | | [facility] | + + + + Problems + + + + | date | description | facility | + + + + | 2025-03-24 00:00 | Right foot pain | [facility] | | | | [facility] | + + + + Procedures [...] 222.006 | lb | + + + +---------+"
[2025-04-16] MEDS ORDERED: BUSPIRONE HCL15 MG PO (19:46)
[2025-04-16] MEDS ORDERED: LAMOTRIGINE100 MG PO (19:46)
[2025-04-16] MEDS ORDERED: HYDROCODONE BIT/ACETAMINOPHEN 5/325 MG 1 TAB HOME.PACK PO ONE (21:00)
[2025-04-16] MEDS ORDERED: HYDROCODON-ACE1 EA10 PO (21:04)
[2025-04-16 21:17] VITALS: BP 124/83
== END 2025-04-16 21:18 | disposition home or self-care (01) ==
LOC: ED 18:49
DX: M25.571 Pain in right ankle and joints of right foot (principal); G40.909 Epilepsy, unspecified, not intractable, without status epilepticus; Z87.891 Personal history of nicotine dependence; Z88.0 Allergy status to penicillin; Z88.5 Allergy status to narcotic agent; Z88.1 Allergy status to other antibiotic agents; Z79.899 Other long term (current) drug therapy; Z91.048 Other nonmedicinal substance allergy status
CPT/HCPCS: 99283; A9270

== ENCOUNTER 2025-05-12 19:09 | Emergency (ER) | payer OTHER ==
[~2025-05-12] VITALS: Ht 157.5 cm; Wt 100.9 kg
--- OUTSIDE RECORDS SUMMARY | ~2025-05-12 | XMS | Continuity of Care Document ---
Demographics + + + | Address | [address] | | | [place] [address] | + + + | Preferred Language | Unknown | + + + | Marital Status | Legally | + + + | Hinduism Affiliation | Unknown | + + + | Race | | + + + | Ethnic Group | Not or | + + + Author + + + | Author | [place] | + + + | Organization | [place] | + + + | Address | [address] | | | [place] [address] | + + + | Phone | | + + + Care Team Providers + + + + | Care Machine Captain Name | Role | Phone | + [...] | Moderate | | 00:00 | | [facility] | | | | | [facility] | | | + + + + + + Encounters No information. Functional Status No information. Immunizations No information. Medications + + + + | date | description | facility | + + + + | (no date) | ONDANSETRON | [facility] | | | | [facility] | + + + + | (no date) | PAROXETINE HCL | [facility] | | | | [facility] | + + + + | (no date) | [facility]PROFEN [facility] | | | | [facility] | + + + + | (no date) | METHOCARBAMOL | [facility] | | | | [facility] | + + + + | (no date) | LAMOTRIGINE | [facility] | | | | [facility] | + + + + | (no date) | NIFEdipine | [facility] | | | | [facility] | + + + + | (no date) | FLUOXETINE HCL | [facility] | | | | [facility] | + + + + | (no date) | FLUOXETINE HCL | [facility] | | | | [facility] | + + + + | (no date) | HYDROCODONE | [facility] | | | BIT/ACETAMINOPHEN | [facility] | + + + + | 2025-03-24 00:00 | HYDROCODONE | [facility] | | | BIT/ACETAMINOPHEN | [facility] | + + + + | 2025-04-16 00:00 | HYDROCODONE | [facility] | | | BIT/ACETAMINOPHEN | [facility] | + + + + | (no date) | BUSPIRONE HCL | [facility] | | | | [facility] | + + + + | (no date) | BUPROPION HCL | [facility] | | | | [facility] | + + + + Problems + + + + | date | description | facility | + + + + | 2025-03-24 00:00 | Right foot pain | [facility] | | | | [facility] | + + + + | 2025-04-16 00:00 | Ankle pain | [facility] | | | | [facility] | + + + + Procedures No information. Results/Labs No information. Social History +--------+ + + | date | description | facility | +--------+ + + Vital Signs + + + +---------+ | date | measurement | value | units | + + + +---------+ | 2025-03-24 00:00 | BMI | 40.6 | kg/m2 | + + + +---------+ | 2025-03-24 00:00 | BP_diastolic | 97 | mmHg | + + + +---------+ | 2025-03-24 00:00 | BP_systolic | 141 | mmHg | + + + +---------+ | 2025-03-24 00:00 | heart_rate | 93 | /min | + + + +---------+ | 2025-03-24 00:00 | height_metric | 157.48 | cm | + + + +---------+ | 2025-03-24 00:00 | height_standard | 62 | in | + + + +---------+ | 2025-03-24 00:00 | o2_saturation | 98 | % | + + + +---------+ | 2025-03-24 00:00 | respiration_rate | 17 | /min | + + + +---------+ | 2025-03-24 00:00 | | 97.9 | F | | | temperature_standar | | | | | d | | | + + + +---------+ | 2025-03-24 00:00 | weight_metric | 100.7 | kg | + + + +---------+ | 2025-03-24 00:00 | weight_standard | 222.006 | lb | + + + +---------+ | 2025-04-16 [...] 228.400 | lb | + + + +---------+"
[~2025-05-12 19:09] MED LIST changes: +BUSPIRONE HCL15 MG PO; +LAMOTRIGINE100 MG PO
[2025-05-12] MEDS ORDERED: OXYCODONE/APAP 5/325 TAB PO ONE (20:00)
[2025-05-12] MEDS ORDERED: PERCOCET 5-3251 EACH PO (20:12)
[2025-05-12] MEDS ORDERED: OXYCODONE/ACETAMINOPHEN 1 TAB HOME.PACK PO ONE (20:15)
[2025-05-12 20:47] VITALS: BP 142/87
== END 2025-05-12 20:48 | disposition home or self-care (01) ==
LOC: ED 19:09
DX: M79.672 Pain in left foot (principal); G89.29 Other chronic pain; F43.10 Post-traumatic stress disorder, unspecified; Z87.891 Personal history of nicotine dependence; Z88.0 Allergy status to penicillin; Z88.5 Allergy status to narcotic agent; Z88.8 Allergy status to other drugs, medicaments and biological substances; Z79.899 Other long term (current) drug therapy
CPT/HCPCS: 99282

== ENCOUNTER 2025-05-19 18:37 | Emergency (ER) | payer OTHER ==
[~2025-05-19] VITALS: Ht 157.5 cm; Wt 80.0 kg
--- OUTSIDE RECORDS SUMMARY | ~2025-05-19 | XMS | Continuity of Care Document ---
Demographics + + + | Address | [address] | | | [place] [address] | + + + | Preferred Language | Unknown | + + + | Marital Status | Legally | + + + | Baptist Affiliation | Unknown | + + + | Race | | + + + | Ethnic Group | Not or | + + + Author + + + | Author | [facility] | + + + | Organization | [facility] | + + + | Address | [address] | | | [place] [address] | + + + | Phone | | + + + Care Team Providers + + + + | Care Production Scheduler Name | Role | Phone | + [...] | Moderate | | 00:00 | | [facility] | | | | | | [facility] | | | + + + + + + Encounters No information. Functional Status No information. Immunizations No information. Medications + + + + | date | description | facility | + + + + | (no date) | ONDANSETRON | [facility] | | | | [facility] | + + + + | (no date) | PAROXETINE HCL | [facility] | | | | [facility] | + + + + | (no date) | IBUPROFEN | [facility] | | | | [facility] | + + + + | (no date) | METHOCARBAMOL | [facility] | | | | [facility] | + + + + | (no date) | LAMOTRIGINE | [facility] | | | | [facility] | + + + + | (no date) | NIFEdipine | [facility] | | | | [facility] | + + + + | (no date) | FLUOXETINE HCL | [facility] | | | | [facility] | + + + + | (no date) | FLUOXETINE HCL | [facility] | | | | [facility] | + + + + | (no date) | HYDROCODONE | [facility] | | | BIT/ACETAMINOPHEN | [facility] | + + + + | 2025-03-24 00:00 | HYDROCODONE | [facility] | | | BIT/ACETAMINOPHEN | [facility] | + + + + | 2025-04-16 00:00 | HYDROCODONE | [facility] | | | BIT/ACETAMINOPHEN | [facility] | + + + + | (no date) | BUSPIRONE HCL | [facility] | | | | [facility] | + + + + | (no date) | BUPROPION HCL | [facility] | | | | [facility] | + + + + Problems + + + + | date | description | facility | + + + + | 2025-03-24 00:00 | Right foot pain | [facility] | | | | [facility] | + + + + | 2025-04-16 00:00 | Ankle pain | [facility] | | | | [facility] | + + + + Procedures [...]
[~2025-05-19 18:37] MED LIST changes: +PERCOCET 5-3251 EACH PO
[2025-05-19] MEDS ORDERED: HYDROCODONE BIT/ACETAMINOPHEN 5/325 MG 1 TAB HOME.PACK PO ONE (21:15)
[2025-05-19] MEDS ORDERED: GABAPENTIN 300 MG CAP PO ONE (21:15)
[2025-05-19] MEDS ORDERED: GABAPENTIN100 MG PO (21:18)
[2025-05-19 22:06] VITALS: BP 137/91
== END 2025-05-19 22:08 | disposition home or self-care (01) ==
LOC: ED 18:37
DX: G62.9 Polyneuropathy, unspecified (principal); M79.671 Pain in right foot; F43.10 Post-traumatic stress disorder, unspecified; Z87.891 Personal history of nicotine dependence; Z88.0 Allergy status to penicillin; Z88.1 Allergy status to other antibiotic agents; Z88.5 Allergy status to narcotic agent; Z88.8 Allergy status to other drugs, medicaments and biological substances; Z79.899 Other long term (current) drug therapy
CPT/HCPCS: 99283; A9270

== ENCOUNTER 2025-06-30 20:41 | Emergency (ER) | payer OTHER ==
[~2025-06-30] VITALS: Ht 157.5 cm; Wt 109.0 kg
--- OUTSIDE RECORDS SUMMARY | ~2025-06-30 | XMS | Continuity of Care Document ---
Demographics + + + | Address | [address] | | | [place] [address] | + + + | Preferred Language | Unknown | + + + | Marital Status | Legally | + + + | Worship Affiliation | Unknown | + + + | Race | | + + + | Ethnic Group | Not or | + + + Author + + + | Author | [facility] | + + + | Organization | [facility] | + + + | Address | [address] | | | [place] [address] | + + + | Phone | | + + + Care Team Providers + + + + | Care Steam Press Tender Name | Role | Phone | + + + + Unavailable | Unavailable | + + + + Unavailable | Unavailable | + + + + Allergies and Intolerances + + + + + + | date | description | facility | reaction | severity | + + + + + + | 2025-04-16 | Metronidazole | [facility] | (no reaction) | Moderate | | 00:00 | | [facility] | | | + + + + + + | 2025-04-16 | Metronidazole | [facility] - | (no reaction) | Moderate | | 00:00 | | [facility] | | | + + + + + + | 2025-04-16 | Codeine | [facility] - | Rash | Moderate | | 00:00 | | [facility] | | | + + + + + + | 2025-04-16 | Amoxicillin | [facility] - | Rash | Moderate | | 00:00 | | [facility] | | | + + + + + + | 2025-04-16 | Codeine | [facility] - | Rash | Moderate | | 00:00 | | [facility] | | | + + + + + + | 2025-04-16 | Metronidazole | [facility] - | (no reaction) | Moderate | | 00:00 | | [facility] | | | + + + + + + | 2025-04-16 | Amoxicillin | [facility] - | Rash | Moderate | | 00:00 | | [facility] | | | + + + + + + | 2025-04-16 | Amoxicillin | [facility] - | Rash | Moderate | | 00:00 | | [facility] | | | + + + + + + | 2025-04-16 | Penicillin | [facility] - | (no reaction) | Severe | | 00:00 | | [facility] | | | + + + + + + | 2025-04-16 | Penicillin | [facility] - | (no reaction) | Severe | | 00:00 | | [facility] | | | + + + + + + | 2025-04-16 | Penicillin | [facility] - | (no reaction) | Severe | | 00:00 | | [facility] | | | + + + + + + | 2025-04-16 | Codeine | [facility] - | Rash | Moderate | | 00:00 | | [facility] | | | | | | [facility] | | | + + + + + + Encounters No information. Functional Status No information. Immunizations No information. Medications + + + + | date | description | facility | + + + + | (no date) | ONDANSETRON | [facility] | | | | [facility] | + + + + | 2025-05-12 00:00 | OXYCODONE | [facility] | | | HCL/ACETAMINOPHEN | [facility] | + + + + | (no date) | PAROXETINE HCL | [facility] | | | | [facility] | + + + + | (no date) | IBUPROFEN | [facility] | | | | [facility] | + + + + | (no date) | METHOCARBAMOL | [facility] | | | | [facility] | + + + + | (no date) | LAMOTRIGINE | [facility] | | | | [facility] | + + + + | (no date) | NIFEdipine | [facility] | | | | [facility] | + + + + | (no date) | FLUOXETINE HCL | [facility] | | | | [facility] | + + + + | (no date) | FLUOXETINE HCL | [facility] | | | | [facility] | + + + + | 2025-05-19 00:00 | GABAPENTIN | [facility] | | | | [facility] | + + + + | (no date) | HYDROCODONE | [facility] | | | BIT/ACETAMINOPHEN | [facility] | + + + + | 2025-04-16 00:00 | HYDROCODONE | [facility] | | | BIT/ACETAMINOPHEN | [facility] | + + + + | (no date) | BUSPIRONE HCL | [facility] | | | | [facility] | + + + + | (no date) | BUPROPION HCL | [facility] | | | | [facility] | + + + + Problems + + + + | date | description | facility | + + + + | 2025-04-16 00:00 | Ankle pain | [facility] | | | | [facility] | + + + + | 2025-05-12 00:00 | Chronic foot pain | [facility] | | | | [facility] | + + + + | 2025-05-19 00:00 | Neuropathic pain | [facility] | | | | [facility] | + + + + Procedures No information. Results/Labs No information. Social History +--------+ + + | date | description | facility | +--------+ + + Vital Signs + + + +---------+ | date | measurement | value | units | + + + +---------+ | 2025-04-16 00:00 | BMI | 41.8 | kg/m2 | + + + +---------+ | 2025-04-16 00:00 | BP_diastolic | 83 | mmHg | + + + +---------+ | 2025-04-16 00:00 | BP_systolic | 124 | mmHg | + + + +---------+ | 2025-04-16 00:00 | heart_rate | 92 | /min | + + + +---------+ | 2025-04-16 00:00 | height_metric | 157.48 | cm | + + + +---------+ | 2025-04-16 00:00 | height_standard | 62 | in | + + + +---------+ | 2025-04-16 00:00 | o2_saturation | 98 | % | + + + +---------+ | 2025-04-16 00:00 | respiration_rate | 15 | /min | + + + +---------+ | 2025-04-16 00:00 | | 97.5 | F | | | temperature_standar | | | | | d | | | + + + +---------+ | 2025-04-16 00:00 | weight_metric | 103.6 | kg | + + + +---------+ | 2025-04-16 00:00 | weight_standard | 228.400 | lb | + + + +---------+ | 2025-05-12 00:00 | BMI | 40.7 | kg/m2 | + + + +---------+ | 2025-05-12 00:00 | BP_diastolic | 87 | mmHg | + + + +---------+ | 2025-05-12 00:00 | BP_systolic | 142 | mmHg | + + + +---------+ | 2025-05-12 00:00 | heart_rate | 84 | /min | + + + +---------+ | 2025-05-12 00:00 | height_metric | 157.48 | cm | + + + +---------+ | 2025-05-12 00:00 | height_standard | 62 | in | + + + +---------+ | 2025-05-12 00:00 | o2_saturation | 99 | % | + + + +---------+ | 2025-05-12 00:00 | respiration_rate | 20 | /min | + + + +---------+ | 2025-05-12 00:00 | | 98.4 | F | | | temperature_standar | | | | | d | | | + + + +---------+ | 2025-05-12 00:00 | weight_metric | 100.899 | kg | + + + +---------+ | 2025-05-12 00:00 | weight_standard | 222.443 | lb | + + + +---------+ | 2025-05-19 00:00 | BMI | 32.3 | kg/m2 | + + + +---------+ | 2025-05-19 00:00 | BP_diastolic | 91 | mmHg | + + + +---------+ | 2025-05-19 00:00 | BP_systolic | 137 | mmHg | + + + +---------+ | 2025-05-19 00:00 | heart_rate | 88 | /min | + + + +---------+ | 2025-05-19 00:00 | height_metric | 157.48 | cm | + + + +---------+ | 2025-05-19 00:00 | height_standard | 62 | in | + + + +---------+ | 2025-05-19 00:00 | o2_saturation | 100 | % | + + + +---------+ | 2025-05-19 00:00 | respiration_rate | 14 | /min | + + + +---------+ | 2025-05-19 00:00 | | 97.9 | F | | | temperature_standar | | | | | d | | | + + + +---------+ | 2025-05-19 00:00 | weight_metric | 80 | kg | + + + +---------+ | 2025-05-19 00:00 | weight_standard | 176.368 | lb | + + + +---------+"
[~2025-06-30 20:41] MED LIST changes: +GABAPENTIN100 MG PO
[2025-07-01] MEDS ORDERED: LIDOCAINE 1% W/ EPI 1:100,000 20 ML MDV ONE (01:53)
[2025-07-01] MEDS ORDERED: METHYLPREDNISOLO4 M1 PO (02:25)
[2025-07-01] MEDS ORDERED: LIDODERM1 EACH TOP (02:25)
[2025-07-01] MEDS ORDERED: HYDROCODONE BIT/ACETAMINOPHEN 5/325 MG 1 TAB HOME.PACK PO ONE (02:30)
[2025-07-01 02:55] VITALS: BP 145/84
== END 2025-07-01 05:49 | disposition home or self-care (01) ==
LOC: ED 20:41
DX: G57.01 Lesion of sciatic nerve, right lower limb (principal); F43.10 Post-traumatic stress disorder, unspecified; Z79.899 Other long term (current) drug therapy; Z88.0 Allergy status to penicillin; Z88.5 Allergy status to narcotic agent; Z88.8 Allergy status to other drugs, medicaments and biological substances; Z87.891 Personal history of nicotine dependence
CPT/HCPCS: 20552; 99283-25; A9270